=== PATIENT | female | born 1955 | race Caucasian/White ===

== ENCOUNTER 2019-07-25 12:28 | Outpatient (CLI) | payer BC, SELFPAY ==
[2019-07-25 13:22] LABS: Albumin Level 4.4 g/dL (3.5-5.2); Anion Gap 17.3 (5-19); Blood Urea Nitrogen 21 mg/dL (8-23); Calcium 10.6 mg/dL (8.5-10.5); Carbon Dioxide 24 mmol/L (22-29); Chloride 102 mmol/L (98-107); Glucose 126 mg/dL (65-115); Phosphorus 3.8 mg/dL (2.5-4.5); Potassium 4.3 mmol/L (3.5-5.1); Sodium 139 mmol/L (136-145)
[2019-07-25 13:56] LABS: Basophils % 0.2 %; Eosinophils # 0.1 10^3/uL (0.0-0.8); Hematocrit 45.1 % (37.0-47.0); Hemoglobin 14.1 g/dL (11.5-15.3); Lymphocytes # 1.3 10^3/uL (0.8-4.8); Mean Corpuscular HGB Conc 31.3 g/dL (30.0-36.0); Mean Corpuscular Hemoglobin 29.1 pg (28.0-34.0); Mean Corpuscular Volume 93.2 fL (81-99); Mean Platelet Volume 9.1 fL (7.4-10.4); Monocytes # 0.4 10^3/uL (0.2-0.9); Monocytes % 7.2 %; Neutrophils # 4.2 10^3/uL (1.8-7.7); Neutrophils % 68.9 %; Nucleated Red Blood Cells % 0 %; Platelet Count 324 10^3/cmm (130-400); Red Blood Count 4.84 10^6/uL (4.1-5.3); Red Cell Distribution Width 14.3 % (12.1-15.1); White Blood Count 6.1 10^3/uL (4.0-10.0)
[2019-07-25 14:18] LABS: Creatinine Urine, Random 319 mg/dL (28-217); Microalbum Creatinine Ratio Ur 6 mg/dL (0-20); Microalbumin Random Urine 2 ug/dL (0-20)
[2019-07-25 14:41] LABS: Calcium 10.7 mg/dL (8.5-10.5)
== END 2019-07-25 12:29 | disposition home or self-care (01) ==
LOC: LAB 12:37
PROVIDERS: Family Provider Family Medicine; PCP Family Medicine; Visit Provider Internal Medicine Nephrology
DX: N18.3 Chronic kidney disease, stage 3 (moderate) (principal)
CPT/HCPCS: 36415; 80069; 82044; 82310; 83970; 85025

== ENCOUNTER → 2019-11-14 08:44 | Outpatient (BNVA) | payer BC, SELFPAY | PROVIDERS: Family Provider Family Medicine; PCP Family Medicine; Visit Provider Specialist | DX: G40.309 Generalized idiopathic epilepsy and epileptic syndromes, not intractable, without status epilepticus (principal) | CPT/HCPCS: 99213 ==

== ENCOUNTER 2019-12-15 14:08 | Outpatient (CLI) | payer BC, MEDICAID, SELFPAY ==
--- NOTE | 2019-12-15 14:15 | USCV_ITS ---
Lorene Benedict Age: 64 Gender: F : 1955 Exam Date: 12/15/2019 14:39 Ordering Phys: Tere Burciaga MD ([email or web address]) Technologist: Kaykay Ferreira Exam Location: [facility] [place] Indication: RECHECK OF CCA STENOSIS Risk Factors: Previous Vascular Surgery: Right Brachial BP: / Left Brachial BP: / Right Left Velocity (cm/s) Spectral Plaque Velocity (cm/s) Spectral Plaque Syst/Diast Broadening Syst/Diast Broadening 78.30/ 28.70 Prox CCA 80.30 / 19.30 45.40/ 16.40 Mid CCA 47.50 / 16.60 60.50/ 24.30 Hetro Distal CCA 43.70 / 12.80 81.60/ 24.70 Hetro Prox ICA 45.00 / 17.20 80.60/ 19.70 Mid ICA 67.50 / 29.00 88.80/ 32.10 Distal ICA 77.00 / 32.00 84.90 Hetro ECA 46.80 1.96 ICA/CCA 1.62 Antegrade Vertebral Antegrade 37.60/ 12.80 cm/s 32.60/ 8.90 cm/s Tri Subclavian Tri 143.4 94.00 0 FINDINGS Moderate scattered dense plaques at the right bifurcation and proximal internal carotid artery Minimal plaques at the left bifurcation proximal ICA. Mild thickening in the common carotid arteries bilaterally Antegrade flow in the vertebral arteries bilaterally CONCLUSIONS Moderate scattered dense plaques at the right bifurcation and proximal internal carotid artery with velocity elevation consistent with 16-49% stenosis. Minimal plaques at the left bifurcation and proximal internal carotid artery. Compared to the study from 12/28/2017, there may not be a significant change Dr Tere Burciaga MD [facility] (Electronically Signed) Final Date: 15 December 2019 21:08 S
== END 2019-12-15 14:09 | disposition home or self-care (01) ==
LOC: RAD 14:11
PROVIDERS: PCP Family Medicine; Visit Provider Internal Medicine Cardiovascular Disease
DX: I65.23 Occlusion and stenosis of bilateral carotid arteries (principal)
CPT/HCPCS: 93880

== ENCOUNTER 2020-01-06 10:59 | Outpatient (CLI) | payer BC, SELFPAY ==
--- NOTE | 2020-01-06 11:07 | MM_ITS ---
WS: [id number] BILATERAL DIGITAL SCREENING MAMMOGRAPHY WITH CAD CLINICAL INFORMATION: SCREENING HISTORY: Screening mammogram. No current complaints. COMPARISON: TECHNIQUE: Bilateral CC and MLO views. FINDINGS: Scattered fibroglandular densities bilaterally. No suspicious focal mass, asymmetry, calcifications, or architectural distortion. No evidence of malignancy. Punctate calcifications. MM/[place] [id number] IMPRESSION: BI-RADS: 2-Benign FOLLOW UP: 1 Year Follow-up Recommend return to annual screening mammography.
== END 2020-01-06 11:00 | disposition home or self-care (01) ==
LOC: RADSHAW 11:04
PROVIDERS: PCP Family Medicine; Visit Provider Family Medicine
DX: Z12.31 Encounter for screening mammogram for malignant neoplasm of breast (principal)
CPT/HCPCS: 77067

== ENCOUNTER 2020-01-23 15:20 | Outpatient (CLI) | payer BC, MEDICAID, SELFPAY ==
[2020-01-23 15:53] LABS: Basophils % 0.3 %; Eosinophils # 0.1 10^3/uL (0.0-0.8); Eosinophils % 1.8 %; Hematocrit 44.9 % (37.0-47.0); Hemoglobin 13.8 g/dL (11.5-15.3); Lymphocytes # 1.7 10^3/uL (0.8-4.8); Lymphocytes % 25.6 %; Mean Corpuscular HGB Conc 30.7 g/dL (30.0-36.0); Mean Corpuscular Hemoglobin 29.8 pg (28.0-34.0); Monocytes # 0.6 10^3/uL (0.2-0.9); Monocytes % 8.4 %; Neutrophils # 4.21 10^3/uL (1.8-7.7); Neutrophils % 63.4 %; Nucleated Red Blood Cells % 0 %; Platelet Count 306 10^3/cmm (130-400); Red Blood Count 4.63 10^6/uL (4.1-5.3); Red Cell Distribution Width 14.1 % (12.1-15.1); White Blood Count 6.6 10^3/uL (4.0-10.0)
[2020-01-23 16:56] LABS: 25 Hydroxy Vitamin D 25 ng/mL (30-100); Albumin Level 4.6 g/dL (3.5-5.2); Blood Urea Nitrogen 21 mg/dL (8-23); Calcium 9.7 mg/dL (8.5-10.5); Carbon Dioxide 23 mmol/L (22-29); Chloride 106 mmol/L (98-107); Glucose 94 mg/dL (65-115); Phosphorus 4.7 mg/dL (2.5-4.5); Sodium 140 mmol/L (136-145)
[2020-01-23 17:06] LABS: Urine Creatinine 181 mg/dL (28-217); Urine Protein Random 8 mg/dL
[2020-01-23 17:15] LABS: UPRO/UCREAT Ratio 0.04 mg/mg CR
[2020-01-23 17:54] LABS: Calcium 10.1 mg/dL (8.5-10.5); Parathyroid Hormone 26.7 pg/mL (15-65)
== END 2020-01-23 15:21 | disposition home or self-care (01) ==
LOC: LAB 15:25
PROVIDERS: PCP Family Medicine; Visit Provider Nurse Practitioner
DX: N18.3 Chronic kidney disease, stage 3 (moderate) (principal)
CPT/HCPCS: 36415; 80069; 82306; 82310; 82570; 83970; 84156; 85025

== ENCOUNTER 2020-06-25 15:20 | Outpatient (CLI) | payer MEDICARE, MEDICAID, SELFPAY ==
--- NOTE | 2020-06-25 | XRR_ITS ---
PROCEDURE INFORMATION: Exam: XR Abdomen, 1 View Exam date and time: 06/25/2020 3:41 PM Age: 65 years old Clinical indication: Constipation; Abdominal pain; Localized; Left; Prior surgery; Surgery type: C sect, right kidney; Additional info: Slow transit constipation TECHNIQUE: Imaging protocol: XR of the abdomen. Views: Frontal supine view of the abdomen. 1 View. Total images: 2 COMPARISON: CT Abdomen/Pelvis Renal [id number] 12/18/2014 11:47 AM FINDINGS: Gastrointestinal tract: Nonobstructive bowel pattern. No visible evidence of significant adynamic or reactive ileus. Heavy fecal residue consistent with constipation. Organs: Status post cholecystectomy. Bones/joints: Mild scoliotic curvature of the spine. Mild degenerative disease of the spine. XR/XR abdomen 1V* [id number] IMPRESSION: Heavy fecal residue consistent with constipation.
== END 2020-06-25 15:21 | disposition home or self-care (01) ==
LOC: RAD 15:26
PROVIDERS: PCP Family Medicine; Visit Provider Registered Nurse
DX: K59.01 Slow transit constipation (principal); R10.30 Lower abdominal pain, unspecified
CPT/HCPCS: 74018

== ENCOUNTER → 2021-01-10 11:06 | Outpatient (BNVA) | payer MEDICARE, MEDICAID, SELFPAY | PROVIDERS: PCP Family Medicine; Visit Provider Specialist | DX: G40.309 Generalized idiopathic epilepsy and epileptic syndromes, not intractable, without status epilepticus (principal) | CPT/HCPCS: 99213 ==

== ENCOUNTER 2021-02-25 14:35 | Outpatient (CLI) | payer MEDICARE, MEDICAID, SELFPAY ==
--- NOTE | 2021-02-25 | CT_ITS ---
WS: [id number] CT PARANASAL SINUSES HISTORY: Maxillary SINUS PAIN TECHNIQUE: Contiguous 2.5 mm axial images obtained through the sinuses. Images are reconstructed in s agittal and coronal planes. All CT scans at [facility] use at least one of these dose optimiz ation techniques: automated exposure control; mA and/or kV adjustment per patient size (includes targ eted exams where dose is matched to clinical indication); or iterative reconstruction. DLP: 346.37 mGycm COMPARISON: None available. Frontal sinuses: Poorly pneumatized. RIGHT frontal sinus is not pneumatized. Sphenoid sinus: Small amount mucoperiosteal thickening in the LEFT sphenoid sinus. Ethmoid sinuses: Negative. Maxillary sinus: Small mucous retention cyst in the anterior floor RIGHT maxillary sinus. No air-flui d levels. Ostiomeatal unit: Widely patent. No obstruction. Moderate deviation of the nasal septum to the LEFT. There is very slight contact of the deviation on the LEFT middle turbinate. CT/CT sinus wo con* [id number] IMPRESSION: 1. Non pneumatized RIGHT frontal sinus, normal variant. 2. No air-fluid levels. 3. Moderate deviation of the nasal septum to the LEFT with contact on the LEFT middle turbinate.
== END 2021-02-25 14:36 | disposition home or self-care (01) ==
PROVIDERS: PCP Family Medicine; Visit Provider Registered Nurse
DX: J32.0 Chronic maxillary sinusitis (principal); J34.2 Deviated nasal septum
CPT/HCPCS: 70486

== ENCOUNTER 2021-07-25 06:00 | Outpatient (RCR) | payer MEDICARE, MEDICAID, SELFPAY | END 2021-08-05 23:59 | disposition home or self-care (01) | LOC: SPT 06:00 | PROVIDERS: PCP Family Medicine; Referring Provider Nurse Practitioner Family; Visit Provider Nurse Practitioner Family | DX: M25.561 Pain in right knee (principal); Z91.81 History of falling; S76.919D Strain of unspecified muscles, fascia and tendons at thigh level, unspecified thigh, subsequent encounter; X58.XXXD Exposure to other specified factors, subsequent encounter | CPT/HCPCS: 97161 ==

== ENCOUNTER 2021-08-06 06:00 | Outpatient (RCR) | payer MEDICARE, MEDICAID, SELFPAY | END 2021-08-13 23:59 | disposition home or self-care (01) | LOC: SPT 06:00 | PROVIDERS: PCP Family Medicine; Referring Provider Nurse Practitioner Family; Visit Provider Nurse Practitioner Family | DX: Z91.81 History of falling (principal); M25.561 Pain in right knee; S76.919D Strain of unspecified muscles, fascia and tendons at thigh level, unspecified thigh, subsequent encounter; X58.XXXD Exposure to other specified factors, subsequent encounter | CPT/HCPCS: 97110 ==

== ENCOUNTER → 2021-10-08 10:02 | Outpatient (BNVA) | payer MEDICARE, MEDICAID, SELFPAY | PROVIDERS: PCP Family Medicine; Visit Provider Internal Medicine Cardiovascular Disease | DX: I65.23 Occlusion and stenosis of bilateral carotid arteries (principal); G47.33 Obstructive sleep apnea (adult) (pediatric); I12.9 Hypertensive chronic kidney disease with stage 1 through stage 4 chronic kidney disease, or unspecified chronic kidney disease; N18.30 Chronic kidney disease, stage 3 unspecified; E78.2 Mixed hyperlipidemia | CPT/HCPCS: 99214 ==

== ENCOUNTER → 2021-10-09 13:13 | Outpatient (BNVA) | payer MEDICARE, MEDICAID, SELFPAY | PROVIDERS: PCP Family Medicine; Visit Provider Otolaryngology | DX: R26.89 Other abnormalities of gait and mobility (principal); I65.29 Occlusion and stenosis of unspecified carotid artery | CPT/HCPCS: 99213; 99214 ==

== ENCOUNTER 2021-11-16 19:01 | Emergency (ER) | payer OTHER, MEDICARE, MEDICAID, SELFPAY ==
[2021-11-16 19:03] VITALS: BP 148/82; PULSE 93; RESP 18; TEMP 36.8; O2SAT 98; BMI 36.1
[2021-11-16 19:16] VITALS: BP 146/75; PULSE 90; RESP 18; O2SAT 96
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
[2021-11-16 19:53] VITALS: BP 131/91; PULSE 80; RESP 18; O2SAT 96
== END 2021-11-16 19:55 | disposition home or self-care (01) ==
PROVIDERS: Emergency Provider Emergency Medicine; PCP Family Medicine
DX: S49.81XA Other specified injuries of right shoulder and upper arm, initial encounter (principal); V89.2XXA Person injured in unspecified motor-vehicle accident, traffic, initial encounter; Y92.410 Unspecified street and highway as the place of occurrence of the external cause
CPT/HCPCS: 73030; 99283

== ENCOUNTER 2021-11-18 11:13 | Outpatient (CLI) | payer MEDICARE, MEDICAID, SELFPAY ==
--- NOTE | 2021-11-18 11:15 | USCV_ITS ---
Lorene Benedict Age: 66 Gender: F : 1955 Exam Date: 11/18/2021 11:52 Ordering Phys: Tere Burciaga MD ([email or web address]) Technologist: [place] Exam Location: [facility] [place] Indication: Carotid stenosis Risk Factors: Previous Vascular Surgery: Right Brachial BP: / Left Brachial BP: / Right Left Velocity (cm/s) Spectral Plaque Velocity (cm/s) Spectral Plaque Syst/Diast Broadening Syst/Diast Broadening 71.90/ 12.10 Prox CCA 59.90 / 13.60 68.40/ 13.20 Mid CCA 55.90 / 17.90 49.00/ 13.50 Distal CCA 45.80 / 11.70 81.60/ 22.20 Prox ICA 58.10 / 21.90 70.90/ 21.40 Mid ICA 65.50 / 23.00 81.60/ 27.20 Distal ICA 66.90 / 23.00 75.40 ECA 45.80 1.19 ICA/CCA 1.20 Antegrade Vertebral Antegrade 33.80/ 9.80 cm/s 45.40/ 10.50 cm/s Tri Subclavian Bi 118.0 94.00 0 FINDINGS Moderate heterogeneous plaques in the right bifurcation. Minimal plaques in the left bifurcation. Intimal thickening in the common carotid arteries bilaterally. Antegrade flow in the vertebral arteries bilaterally. Normal Doppler flow velocities in the external carotid and subclavian arteries bilaterally. CONCLUSIONS Moderate heterogeneous plaques at the right bifurcation relative Doppler features suggesting less than 50% stenosis. Minimal plaques at the left bifurcation suggesting less than 50% stenosis No significant stenosis in the vertebral, subclavian or external carotid arteries, based on the above findings Dr Tere Burciaga MD [facility] (Electronically Signed) Final Date: 20 November 2021 07:57 S
== END 2021-11-18 11:14 | disposition home or self-care (01) ==
LOC: RAD 11:22
PROVIDERS: PCP Family Medicine; Visit Provider Internal Medicine Cardiovascular Disease
DX: I65.23 Occlusion and stenosis of bilateral carotid arteries (principal); I77.9 Disorder of arteries and arterioles, unspecified
CPT/HCPCS: 93880

== ENCOUNTER 2022-01-30 12:48 | Outpatient (CLI) | payer MEDICARE, MEDICAID, SELFPAY ==
[2022-01-30 13:40] LABS: Basophils % 0.2 %; Eosinophils # 0.1 10^3/uL (0.0-0.8); Eosinophils % 2.1 %; Hematocrit 41.1 % (37.0-47.0); Hemoglobin 12.5 g/dL (11.5-15.3); Lymphocytes # 1.5 10^3/uL (0.8-4.8); Lymphocytes % 28.8 %; Mean Corpuscular HGB Conc 30.4 g/dL (30.0-36.0); Mean Corpuscular Hemoglobin 29.3 pg (28.0-34.0); Mean Corpuscular Volume 96.3 fl (81-99); Monocytes # 0.5 10^3/uL (0.2-0.9); Monocytes % 9.6 %; Neutrophils # 3.07 10^3/uL (1.8-7.7); Neutrophils % 59.1 %; Nucleated Red Blood Cells % 0 %; Platelet Count 247 10^3/cmm (130-400); Red Blood Count 4.27 10^6/uL (4.1-5.3); Red Cell Distribution Width 14.4 % (12.1-15.1); White Blood Count 5.2 10^3/uL (4.0-10.0)
[2022-01-30 13:51] LABS: Urine Creatinine 99 mg/dL (28-217)
[2022-01-30 13:57] LABS: Calcium 9.2 mg/dL (8.5-10.5)
[2022-01-30 13:59] LABS: Albumin Level 4.2 g/dL (3.5-5.2); Chloride 106 mmol/L (98-107); Glucose 96 mg/dL (65-115); Potassium 4.2 mmol/L (3.5-5.1); Sodium 140 mmol/L (136-145)
[2022-01-30 14:03] LABS: Parathyroid Hormone 44.5 pg/mL (15-65)
[2022-01-30 14:32] LABS: Anion Gap 14.2 (5-19); Blood Urea Nitrogen 17 mg/dL (8-23); Calcium 9.2 mg/dL (8.5-10.5); Carbon Dioxide 24 mmol/L (22-29); Glomerular Filtration Rate 55.5 mL/min (90-130); Phosphorus 3.5 mg/dL (2.5-4.5)
[2022-02-04 10:36] LABS: Vit D 1,25 (Oh)2, Total 33 pg/mL (18-72); Vit D2 1,25 (Oh)2 <8 pg/mL; Vit D3 1,25 (Oh)2 33 pg/mL
== END 2022-01-30 12:49 | disposition home or self-care (01) ==
LOC: LAB 12:56
PROVIDERS: PCP Family Medicine; Visit Provider Internal Medicine Nephrology
DX: N18.32 Chronic kidney disease, stage 3b (principal)
CPT/HCPCS: 80069; 82310; 82570; 82652; 83970; 85025

== ENCOUNTER 2022-03-05 10:34 | Outpatient (CLI) | payer OTHER, MEDICARE, MEDICAID, SELFPAY ==
--- NOTE | 2022-03-05 10:50 | XR_ITS ---
WS: [id number] Exam: XR thoracic spine 3V* [id number] Date/Time of Exam: 03/05/2022 10:52 AM Reason For Exam: MIDLINE THORACIC BACK PAIN No acute fracture or dislocation. There is spondylosis. Mild dextroscoliosis of the lower T-spine. Pa raspinal soft tissues are unremarkable. XR/XR thoracic spine 3V* [id number] IMPRESSION: 1. No fracture or malalignment. 2. Degenerative changes and slight scoliosis
--- NOTE | 2022-03-05 10:50 | XR_ITS ---
WS: [id number] Exam: XR ribs BI 3V* [id number] Date/Time of Exam: 03/05/2022 10:52 AM Reason For Exam: MIDLINE THORACIC BACK PAIN No sign of acute rib fracture. The lungs are fully expanded and bilaterally clear. No pleural effusio ns. No pulmonary or pleural reactive changes. Anchoring screws in the left humeral head. XR/XR ribs BI 3V* [id number] IMPRESSION: 1. No acute rib fracture or other significant finding.
== END 2022-03-05 10:35 | disposition home or self-care (01) ==
LOC: RAD 10:36
PROVIDERS: PCP Family Medicine; Visit Provider Nurse Practitioner Family
DX: M54.6 Pain in thoracic spine (principal); G89.29 Other chronic pain; M41.84 Other forms of scoliosis, thoracic region
CPT/HCPCS: 71110; 72072

== ENCOUNTER 2022-03-31 10:50 | Outpatient (CLI) | payer MEDICARE, MEDICAID, SELFPAY ==
--- NOTE | 2022-03-31 11:01 | MM_ITS ---
WS: [id number] VIEWS: MLO and CC views both breasts. 3D digital tomosynthesis is also included in this exam. Comparison made with prior exam of 10/05/2013, 11/02/2014, 11/26/2015, 12/02/2016, 10/21/2018, 01/06/2020. Findings: There was no sign of mass, architectural distortion or suspicious calcification in either breast. Fa tty MM/[place] [id number] Impression: BI-RADS: 2-Benign FOLLOW-UP: 1 Year Follow-up This mammogram was also analyzed by the Computer Aided Detection System R2 Imag e Senior Compensation Analyst.
== END 2022-03-31 10:51 | disposition home or self-care (01) ==
LOC: RAD 10:51
PROVIDERS: PCP Family Medicine; Visit Provider Nurse Practitioner Family
DX: Z12.31 Encounter for screening mammogram for malignant neoplasm of breast (principal)
CPT/HCPCS: 77063; 77067

== ENCOUNTER → 2022-05-26 14:37 | Outpatient (BNVA) | payer MEDICARE, MEDICAID, SELFPAY | PROVIDERS: PCP Family Medicine; Visit Provider Specialist | DX: G40.309 Generalized idiopathic epilepsy and epileptic syndromes, not intractable, without status epilepticus (principal); G47.33 Obstructive sleep apnea (adult) (pediatric) | CPT/HCPCS: 99213 ==

== ENCOUNTER → 2022-08-19 10:57 | Outpatient (BNVA) | payer MEDICARE, MEDICAID, SELFPAY | PROVIDERS: PCP Family Medicine; Visit Provider Nurse Practitioner Family | DX: I12.9 Hypertensive chronic kidney disease with stage 1 through stage 4 chronic kidney disease, or unspecified chronic kidney disease (principal); N18.9 Chronic kidney disease, unspecified; I65.23 Occlusion and stenosis of bilateral carotid arteries | CPT/HCPCS: 99214 ==

== ENCOUNTER → 2023-02-18 14:56 | Outpatient (BNVA) | payer MEDICARE, MEDICAID, SELFPAY | PROVIDERS: PCP Family Medicine; Visit Provider Internal Medicine Cardiovascular Disease | DX: R07.9 Chest pain, unspecified (principal); I65.23 Occlusion and stenosis of bilateral carotid arteries; G47.33 Obstructive sleep apnea (adult) (pediatric); I10 Essential (primary) hypertension; E78.2 Mixed hyperlipidemia; I12.9 Hypertensive chronic kidney disease with stage 1 through stage 4 chronic kidney disease, or unspecified chronic kidney disease; N18.30 Chronic kidney disease, stage 3 unspecified; R94.31 Abnormal electrocardiogram [ECG] [EKG] | CPT/HCPCS: 93005; 99214 ==

== ENCOUNTER 2023-04-02 11:08 | Outpatient (CLI) | payer MEDICARE, MEDICAID, SELFPAY ==
--- NOTE | 2023-04-02 11:00 | MM_ITS ---
WS: [id number] BILATERAL SCREENING DIGITAL TOMOSYNTHESIS MAMMOGRAM WITH CAD HISTORY: SCREENING COMPARISON: 03/31/2022 and 01/06/2020 Bilateral CC and MLO views with tomosynthesis and synthetic mammography submitted. Computer aided det ection analyzed. Breast composition: There are scattered areas of fibroglandular density. No suspicious masses, microc alcifications or architectural distortion. Benign calcifications in each breast. IMPRESSION: MM/[place] [id number] BI-RADS: 2-Benign FOLLOW UP: 1 Year Follow-up
== END 2023-04-02 11:09 | disposition home or self-care (01) ==
LOC: MOBLMAM 11:15
PROVIDERS: PCP Family Medicine; Visit Provider Family Medicine
DX: Z12.31 Encounter for screening mammogram for malignant neoplasm of breast (principal)
CPT/HCPCS: 77063; 77067

== ENCOUNTER → 2023-09-02 15:20 | Outpatient (BNVA) | payer MEDICARE, MEDICAID, SELFPAY | PROVIDERS: PCP Family Medicine; Visit Provider Internal Medicine Cardiovascular Disease | DX: R07.89 Other chest pain (principal); I65.23 Occlusion and stenosis of bilateral carotid arteries; E78.2 Mixed hyperlipidemia; G47.33 Obstructive sleep apnea (adult) (pediatric); I12.9 Hypertensive chronic kidney disease with stage 1 through stage 4 chronic kidney disease, or unspecified chronic kidney disease; N18.30 Chronic kidney disease, stage 3 unspecified | CPT/HCPCS: 99214 ==

== ENCOUNTER 2023-09-10 12:36 | Outpatient (CLI) | payer MEDICARE, MEDICAID, SELFPAY ==
--- NOTE | 2023-09-10 13:00 | USCV_ITS ---
Lorene Benedict Age: 68 Gender: F : 1955 Exam Date: 09/10/2023 12:48 Ordering Phys: Tere Burciaga MD ([email or web address]) Technologist: Exam Location: [facility] [place] Indication: cca stenosis Risk Factors: Previous Vascular Surgery: Right Brachial BP: / Left Brachial BP: / Right Left Velocity (cm/s) Spectral Plaque Velocity (cm/s) Spectral Plaque Syst/Diast Broadening Syst/Diast Broadening 84.10/ 23.20 Prox CCA 49.60 / 16.80 63.40/ 18.00 Mid CCA 38.50 / 11.10 97.00/ 28.40 Hetro Distal CCA 48.30 / 12.20 125.80/32.70 Prox ICA 65.80 / 25.40 73.70/ 15.70 Mid ICA 93.00 / 33.00 111.40/30.00 Distal ICA 107.50/ 36.30 98.30 ECA 58.10 1.30 ICA/CCA 2.20 Antegrade Vertebral Antegrade 34.00/ 8.00 cm/s 31.20/ 8.50 cm/s Tri Subclavian Tri 109.0 110.0 0 0 FINDINGS Moderate heterogenous plaques of the right bifurcation and proximal internal carotid artery Minimal plaques at the left bifurcation and internal carotid artery Antegrade flow in the vertebral arteries bilaterally Normal Doppler flow velocities in the external carotid and subclavian arteries bilaterally CONCLUSIONS Moderate heterogenous plaques of the right bifurcation and proximal internal carotid artery with velocity elevation suggesting 50 to 69% stenosis. Minimal plaques in the left bifurcation and proximal ICA suggesting less than 50% stenosis. No significant stenosis in the vertebral, subclavian or external carotid arteries, based on the above findings Dr Tere Burciaga MD [facility] (Electronically Signed) Final Date: 11 September 2023 10:02 S
== END 2023-09-10 12:37 | disposition home or self-care (01) ==
LOC: RAD 12:36
PROVIDERS: PCP Family Medicine; Visit Provider Internal Medicine Cardiovascular Disease
DX: I65.23 Occlusion and stenosis of bilateral carotid arteries (principal)
CPT/HCPCS: 93880

== ENCOUNTER 2024-04-05 10:00 | Outpatient (CLI) | payer MEDICARE, MEDICAID, SELFPAY ==
--- NOTE | 2024-04-05 10:07 | MM_ITS ---
WS: [id number] BILATERAL 3D TOMOSYNTHESIS DIGITAL SCREENING MAMMOGRAM WITH CAD CLINICAL INFORMATION: SCREENING HISTORY: Screening mammogram. No current complaints. COMPARISON: 2022 TECHNIQUE: Bilateral CC and MLO views. FINDINGS: Fatty-replaced breasts bilaterally. No suspicious focal mass, asymmetry, calcifications, or architecture instructor ural distortion. No evidence of malignancy. Incidental secretory calcifications. MM/MM scr tomosynthesis [id number] IMPRESSION: DENSITY: The breasts are almost entirely fatty. BI-RADS: 2 - Benign. FOLLOW UP: 1 Year Follow-up Recommend return to annual screening mammography.
== END 2024-04-05 10:01 | disposition home or self-care (01) ==
LOC: RAD 10:01
PROVIDERS: PCP Family Medicine
DX: Z12.31 Encounter for screening mammogram for malignant neoplasm of breast (principal); R92.313 Mammographic fatty tissue density, bilateral breasts; R92.1 Mammographic calcification found on diagnostic imaging of breast
CPT/HCPCS: 77063; 77067

== ENCOUNTER 2024-04-14 21:10 | Emergency (ER) | payer MEDICARE, MEDICAID, SELFPAY ==
--- NOTE | 2024-04-14 21:15 | ECG_ITS ---
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 Measurements Intervals Elizabeth Rate: 90 P: 140 ID: [id number] QRS: 43 QRSD: 84 T: 111 QT: 342 QTc: 420 Interpretive Statements SINUS RHYTHM WITH OCCASIONAL SUPRAVENTRICULAR PREMATURE COMPLEXES LOW QRS VOLTAGE IN PRECORDIAL LEADS [QRS DEFLECTION < 1.0 mV IN CHEST LEADS] ANTEROSEPTAL MYOCARDIAL INFARCTION , OF INDETERMINATE AGE [40+ ms Q WAVE IN V1-V4] Compared to ECG 02/18/2023 15:05:53 No significant changes Electronically Signed On 04-14-2024 21:24:35 SYSTEMS DESIGN ENGINEER by Tere Burciaga M.D. [email or web address]
[2024-04-14 21:16] VITALS: BP 182/73; PULSE 94; RESP 21; TEMP 36.4; O2SAT 98; BMI 37.0
--- NOTE | 2024-04-14 21:35 | XRR_ITS ---
PROCEDURE INFORMATION: Exam: XR Chest Exam date and time: 04/14/2024 10:00 PM Age: 68 years old Clinical indication: Pain; Chest pressure; Additional info: Chest pain TECHNIQUE: Imaging protocol: Radiologic exam of the chest. Views: 1 view. COMPARISON: CR XR chest 1V [id number] 06/09/2017 11:14 AM FINDINGS: Lungs: Unremarkable. No consolidation. Pleural spaces: Unremarkable. No pleural effusion. No pneumothorax. Heart/Mediastinum: Mild cardiomegaly. Bones/joints: Moderate degenerative disease of bilateral acromioclavicular joints. XR/XR chest 1V portable [id number] IMPRESSION: No acute cardiopulmonary process.
[2024-04-14 21:53] LABS: Basophils % 0.1 %; Eosinophils # 0.1 10^3/uL (0.0-0.8); Eosinophils % 1.6 %; Hematocrit 42.8 % (36-47); Lymphocytes # 1.5 10^3/uL (0.8-4.8); Lymphocytes % 20.6 %; Mean Corpuscular HGB Conc 31.5 g/dL (30-55); Mean Corpuscular Hemoglobin 30.5 pg (27-33); Mean Corpuscular Volume 96.8 fl (85-98); Mean Platelet Volume 8.7 fL (7.4-10.4); Monocytes # 0.7 10^3/uL (0.2-0.9); Monocytes % 9.6 %; Neutrophils # 4.98 10^3/uL (1.8-7.7); Neutrophils % 67.7 %; Nucleated Red Blood Cells % 0 %; Platelet Count 243 10^3/cmm (157-399); Red Blood Count 4.42 10^6/uL (3.85-5.65); Red Cell Distribution Width 13.8 % (12.1-15.1); White Blood Count 7.37 10^3/uL (3.29-11.43)
--- NOTE | 2024-04-14 21:56 | ED_ITS ---
HPI - Chest Pain 2 General: Chief Complaint: Chest Pain Stated Complaint: SOB Time Seen by Provider: 04/14/24 21:35 History of Present Illness: Patient was into the ER with complaints of chest pain after eating x 1 today. He was left-sided did not radiate did not produce any nausea or vomiting shortness of breath or diaphoresis. Patient has alpha gal and thought she may have ate something she should not had. Patient did vomit x 1 and that she felt better afterwards. Related Data Home Medications Medication Instructions Recorded Confirmed cholecalciferol (vitamin D3) 125 125 mcg PO DAILY 11/14/19 09/03/23 mcg (5,000 unit) tablet (Vitamin D3) fluticasone fur. 100 mcg-umeclid 1 inh inhalation DAILY 11/14/19 09/03/23 62.5 mcg-vilant 25 mcg inhalat.powder (Trelegy Ellipta) gabapentin 300 mg capsule 300 mg PO DAILY 11/14/19 09/03/23 irbesartan 150 mg tablet 150 mg PO DAILY 11/14/19 09/03/23 levothyroxine 75 mcg tablet 37.5 mcg PO DAILY 11/14/19 09/03/23 (Synthroid) omeprazole 40 mg capsule,delayed 40 mg PO DAILY 11/14/19 09/03/23 release simvastatin 20 mg tablet 20 mg PO DAILY 11/14/19 09/03/23 valacyclovir 500 mg tablet 500 mg PO DAILY PRN 11/14/19 09/03/23 vitamin B complex 1 cap PO DAILY 11/14/19 09/03/23 brinzolamide 1 % eye 1 drop ophthalmic (eye) TID 11/24/19 09/03/23 drops,suspension (Azopt) latanoprost 0.005 % eye drops 1 drop ophthalmic (eye) DAILY 11/24/19 09/03/23 potassium 99 mg tablet mg PO BID 11/24/19 09/03/23 magnesium 250 mg tablet 250 mg PO DAILY PRN 01/10/21 09/03/23 flunisolide 25 mcg (0.025 %) nasal 1 spray intranasal BID 10/08/21 09/03/23 spray benzonatate 100 mg capsule 100 mg PO BID PRN 02/18/23 09/03/23 Previous Rx's Medication Instructions Recorded carvedilol 3.125 mg tablet 3.125 mg PO BID 30 days #60 tabs 11/19/20 fluticasone propionate 50 2 spray intranasal DAILY 6 months 04/01/21 mcg/actuation nasal #16 grams spray,suspension zonisamide 100 mg capsule 400 mg (4 x 100 mg) PO DAILY 30 03/09/23 days #120 caps Allergies Allergy/AdvReac Type Severity Reaction Status Date / Time Alpha-Gal Allergy Intermediate Unknown Verified 04/14/24 21:20 ([id number],3-Gala Review of Systems 2 General: Reports: 10 or more systems reviewed and unremarkable except in HPI and below PFSH ED 2 PFSH: Medical History Hypertension Lichen sclerosus Chronic kidney disease Obstructive sleep apnea Hypertension COPD (chronic obstructive pulmonary disease) Hyperlipidemia Bilateral carotid artery stenosis GERD (gastroesophageal reflux disease) Sleep apnea Kidney stones Hypersomnia Seizures Glaucoma Morbid obesity Hypothyroid Surgical History History of History of dental surgery Hx of cholecystectomy Status post glaucoma surgery History of rotator cuff surgery Family History Father CAD (coronary artery disease) Dementia Diabetes Hyperlipidemia Hypertension Lung disease Mother Cancer Brother Chronic kidney disease (CKD) Sister Chronic kidney disease (CKD) Denies family history of Clotting disorder Suicide Anesthesia complication Bleeding disorder Stroke Social History Smoking and tobacco/nicotine status: never used tobacco/nicotine Alcohol intake: never Substance/Drug Use: never Physical Exam 2 Const: COMMON NORMALS: no acute distress, average body habitus, patient oriented x3, no limitations, healthy appearing, alert and well nourished HENMT: COMMON NORMALS: normocephalic, atraumatic, hearing grossly normal bilaterally, external ears normal, Normal external nose present and moist oral mucous membranes HEAD & SCALP: normocephalic and atraumatic NOSE: Normal external nose present EXTERNAL EAR: Yes external ears normal Neck/C-Spine: COMMON NORMALS: no JVD Chest: COMMONS NORMALS: normal inspection of the chest and normal palpation of entire chest wall Resp: COMMON NORMALS: normal respiratory effort, No retractions, No use of accessory muscles and clear to auscultation bilaterally AUSCULTATION: clear to auscultation bilaterally Cardio: COMMON NORMALS: no JVD, regular rate, regular rhythm, S1 normal heart sound present, S2 normal heart sound present, No gallops present (Cardio), No clicks present (Cardio), No murmurs present (Cardio) and No rub (Cardio) R ATE: regular rate RHYTHM: regular rhythm HEART SOUNDS: S1 normal heart sound present and S2 normal heart sound present GI: COMMON NORMALS: Normal to inspection, nondistended, normoactive bowel sounds present, Soft to palpation, non-tender, No hepatosplenomegaly present and no masses PALPATION: Yes Soft to palpation and Yes No hepatosplenomegaly present Neuro: COMMON NORMALS: patient oriented x3 SENSORIUM/ORIENTATION: Yes alert Course 2 Vital Signs: Vital signs: Vital Signs Temperature 97.6 F 04/14/24 21:16 Pulse Rate 94 04/14/24 21:16 Respiratory Rate 21 H 04/14/24 21:16 Blood Pressure 182/73 04/14/24 21:16 Pulse Oximetry 98 04/14/24 21:16 Oxygen Delivery Me thod Room Air 04/14/24 21:16 MDM - Chest Pain Medical Decision Making Patient presented with chest pain was worked up in standard chest pain fashion with serial EKGs, serial enzymes, lab work, chest x-ray, all of which was benign. Patient will be discharged home Medical Records I reviewed the patient's medical records. Lab Data I reviewed the patient's lab results. 04/14/24 21:45 04/14/24 21:45 Radiology Impressions Chest X-Ray 04/14/24 21:35 IMPRESSION: No acute cardiopulmonary process. Laboratory Results WBC 7.37 10^3/uL (3.29-11.43) 04/14/24 21:45 RBC 4.42 10^6/uL (3.85-5.65) 04/14/24 21:45 Hgb 13.50 g/dL (11.27-16.99) 04/14/24 21:45 Hct 42.8 % (36-47) 04/14/24 21:45 MCV 96.8 fl (85-98) 04/14/24 21:45 MCH 30.5 pg (27-33) 04/14/24 21:45 MCHC 31.5 g/dL (30-55) 04/14/24 21:45 RDW 13.8 % (12.1-15.1) 04/14/24 21:45 Plt Count 243 10^3/cmm (157-399) 04/14/24 21:45 MPV 8.7 fL (7.4-10.4) 04/14/24 21:45 Neut % (Auto) 67.7 % 04/14/24 21:45 Lymph % (Auto) 20.6 % 04/14/24 21:45 [place] % (Auto) 9.6 % 04/14/24 21:45 Eos % (Auto) 1.6 % 04/14/24 21:45 Baso % (Auto) 0.1 % 04/14/24 21:45 Neut # (Auto) 4.98 10^3/uL (1.8-7.7) 04/14/24 21:45 Lymph # (Auto) 1.5 10^3/uL (0.8-4.8) 04/14/24 21:45 [place] # (Auto) 0.7 10^3/uL (0.2-0.9) 04/14/24 21:45 Eos # (Auto) 0.1 10^3/uL (0.0-0.8) 04/14/24 21:45 Baso # (Auto) 0.0 10^3/uL (0.0-0.1) 04/14/24 21:45 Nucleated RBC % (auto) 0 % 04/14/24 21:45 Nucleated RBCs # 0.0 /100WBC 04/14/24 21:45 Sodium 140 mmol/L (136-145) 04/14/24 21:45 Potassium 4.4 mmol/L (3.5-5.1) 04/14/24 21:45 Chloride 106 mmol/L (98-107) 04/14/24 21:45 Carbon Dioxide 24 mmol/L (22-29) 04/14/24 21:45 Anion Gap 14.4 (5-19) 04/14/24 21:45 BUN 21 mg/dL (8-23) 04/14/24 21:45 Creatinine 1.1 mg/dL (0.5-0.9) H 04/14/24 21:45 GFR Calculation 49.4 mL/min (90-130) L 04/14/24 21:45 Glucose 103 mg/dL (65-115) 04/14/24 21:45 Calculated Osmolality 293 mOsm/kg (285-295) 04/14/24 21:45 Calcium 8.6 mg/dL (8.5-10.5) 04/14/24 21:45 Total Bilirubin 0.3 mg/dL (0.15-1.2) 04/14/24 21:45 AST 19 U/L (0-32) 04/14/24 21:45 ALT 20 U/L (0-33) 04/14/24 21:45 Alkaline Phosphatase 107 U/L (35-105) H 04/14/24 21:45 Troponin T Baseline 10 ng/L (0-10) 04/14/24 21:45 Troponin T 120 Minute 8.89 ng/L (0-10) 04/14/24 23:39 Delta Troponin T -1.11 ABS# (0-10) L 04/14/24 23:39 Total Protein 6.5 g/dL (6.6-8.7) L 04/14/24 21:45 Albumin 4.2 g/dL (3.5-5.2) 04/14/24 21:45 Globulin 2.3 g/dL (1.3-4.6) 04/14/24 21:45 All radiology interpretation(s) finalized by discharge Discharge Plan Discharge Patient Disposition: Home Clinical Impression: Atypical chest pain Condition: Stable Prescriptions: No Action latanoprost 0.005 % drops 1 drop ophthalmic (eye) DAILY Azopt 1 % drops,suspension 1 drop ophthalmic (eye) TID valacyclovir 500 mg tablet 500 mg PO DAILY PRN cholecalciferol (vitamin D3) [Vitamin D3] 125 mcg (5,000 unit) tablet 125 mcg PO DAILY gabapentin 300 mg capsule 300 mg PO DAILY irbesartan 150 mg tablet 150 mg PO DAILY simvastatin 20 mg tablet 20 mg PO DAILY omeprazole 40 mg capsule,delayed release(DR/EC) 40 mg PO DAILY vitamin B complex Capsule 1 cap PO DAILY levothyroxine [Synthroid] 75 mcg tablet 37.5 mcg PO DAILY Trelegy Ellipta 100-62.5-25 mcg blister with device 1 inh INHALATION DAILY potassium 99 mg tablet PO BID magnesium 250 mg tablet 250 mg PO DAILY PRN fluticasone propionate 50 mcg/actuation spray,suspension 2 spray intranasal DAILY 180 Days Qty: 16 5RF Rx Instructions: administer into each nostril flunisolide 25 mcg (0.025 %) spray,non-aerosol 1 spray intranasal BID benzonatate 100 mg capsule 100 mg PO BID PRN carvedilol 3.125 mg tablet 3.125 mg PO BID 30 Days Qty: 60 5RF Rx Instructions: must administer with a meal/food zonisamide 100 mg capsule 400 mg PO DAILY 30 Days Qty: 120 0RF Rx Instructions: must have appointment for more refills Discharge Orders: Discharge ED (Routine); Ordered 04/15/24 Ordered By: Wilber Henry Referrals: Makenzie Nur DO [Primary Care Provider] - 1 week Patient Instructions: Chest Pain (DC) Activity Restrictions/Additional Instructions: Your evaluation in the ER did not show any acute cause of cardiac chest pain. It is felt your chest pain is noncardiac in origin. Please follow-up with your family practice physician within the next 7 days for further evaluation and treatment. Your chest pain returns please feel free to return to the ER. Thank you for choosing [facility] for your healthcare needs today. Please realize that you were seen in the emergency department and that we are providing you with an emergency medical screening exam and this may not be a complete and all exclusive of all testing and/or medical workup we may need to determine your element or severity of your illness. It is very important that you follow-up as instructed with your primary care provider or specialist for the additional evaluation and to discuss your medical treatment plan. You may return to the emergency department should you have concerns or if your condition changes or worsens in any way. Coding Level of Care Code ED Manufacturing Technician for Carrol Stoddard
[2024-04-14 22:11] LABS: Troponin(5th) Baseline 10 ng/L (0-10)
[2024-04-14 22:14] LABS: Alanine Aminotransferase 20 U/L (0-33); Albumin Level 4.2 g/dL (3.5-5.2); Alkaline Phosphatase 107 U/L (35-105); Anion Gap 14.4 (5-19); Aspartate Amino Transferase 19 U/L (0-32); Blood Urea Nitrogen 21 mg/dL (8-23); Calcium 8.6 mg/dL (8.5-10.5); Carbon Dioxide 24 mmol/L (22-29); Chloride 106 mmol/L (98-107); Creatinine Clr Calc Pharmacy 47.7338; Globulin 2.3 g/dL (1.3-4.6); Glomerular Filtration Rate 49.4 mL/min (90-130); Glucose 103 mg/dL (65-115); Osmolality Calculated 293 mOsm/kg (285-295); Potassium 4.4 mmol/L (3.5-5.1); Sodium 140 mmol/L (136-145); Total Bilirubin 0.3 mg/dL (0.15-1.2); Total Protein 6.5 g/dL (6.6-8.7)
[2024-04-15 00:11] LABS: Troponin 5 2HR 8.89 ng/L (0-10)
[2024-04-15 00:13] LABS: Troponin 5 2HR Delta -1.11 ABS# (0-10)
[2024-04-15 00:29] VITALS: BP 128/83; PULSE 86; O2SAT 99
== END 2024-04-15 00:29 | disposition home or self-care (01) ==
PROVIDERS: Emergency Provider Emergency Medicine; PCP Family Medicine
DX: R07.89 Other chest pain (principal); I12.9 Hypertensive chronic kidney disease with stage 1 through stage 4 chronic kidney disease, or unspecified chronic kidney disease; N18.9 Chronic kidney disease, unspecified; E78.5 Hyperlipidemia, unspecified; J44.9 Chronic obstructive pulmonary disease, unspecified
CPT/HCPCS: 36415; 71045; 80053; 84484; 85025; 93005; 99285

== ENCOUNTER 2024-05-11 14:14 | Outpatient (CLI) | payer MEDICARE, MEDICAID, SELFPAY ==
[2024-05-11 14:47] LABS: Basophils % 0.3 %; Eosinophils # 0.1 10^3/uL (0.0-0.8); Eosinophils % 2.1 %; Hematocrit 41.5 % (36-47); Lymphocytes # 1.7 10^3/uL (0.8-4.8); Lymphocytes % 26.5 %; Mean Corpuscular HGB Conc 30.8 g/dL (30-55); Mean Corpuscular Hemoglobin 30.5 pg (27-33); Mean Platelet Volume 8.9 fL (7.4-10.4); Monocytes # 0.6 10^3/uL (0.2-0.9); Monocytes % 9.1 %; Neutrophils # 3.86 10^3/uL (1.8-7.7); Neutrophils % 61.5 %; Nucleated Red Blood Cells % 0 %; Platelet Count 271 10^3/cmm (157-399); Red Blood Count 4.19 10^6/uL (3.85-5.65); White Blood Count 6.27 10^3/uL (3.29-11.43)
[2024-05-11 15:04] LABS: Albumin Level 3.9 g/dL (3.5-5.2); Anion Gap 12.8 (5-19); Blood Urea Nitrogen 16 mg/dL (8-23); Calcium 9.1 mg/dL (8.5-10.5); Carbon Dioxide 25 mmol/L (22-29); Chloride 104 mmol/L (98-107); Glomerular Filtration Rate 55.1 mL/min (90-130); Glucose 74 mg/dL (65-115); Phosphorus 3.5 mg/dL (2.5-4.5); Potassium 3.8 mmol/L (3.5-5.1); Sodium 138 mmol/L (136-145)
[2024-05-11 15:04] LABS: Creatinine Urine, Random 139 mg/dL (28-217); Microalbum Creatinine Ratio Ur 7 mg/dL (0-20); Microalbumin Random Urine 1 ug/dL (0-20)
[2024-05-11 15:05] LABS: Calcium 9.1 mg/dL (8.5-10.5)
[2024-05-11 15:12] LABS: Parathyroid Hormone 46.5 pg/mL (15-65)
[2024-05-11 15:20] LABS: 25 Hydroxy Vitamin D 22 ng/mL (30-100)
== END 2024-05-11 14:15 | disposition home or self-care (01) ==
LOC: LAB 14:17
PROVIDERS: PCP Family Medicine; Visit Provider Internal Medicine Nephrology
DX: N18.32 Chronic kidney disease, stage 3b (principal); E55.9 Vitamin D deficiency, unspecified; E78.5 Hyperlipidemia, unspecified
CPT/HCPCS: 36415; 80069; 82044; 82306; 82310; 83970; 85025

== ENCOUNTER → 2024-05-17 09:00 | Outpatient (BNVA) | payer MEDICARE, MEDICAID, SELFPAY | PROVIDERS: PCP Family Medicine; Visit Provider Nurse Practitioner Family | DX: L30.9 Dermatitis, unspecified (principal); L81.4 Other melanin hyperpigmentation; L57.8 Other skin changes due to chronic exposure to nonionizing radiation; Z12.83 Encounter for screening for malignant neoplasm of skin | CPT/HCPCS: 99204 ==

== ENCOUNTER → 2024-06-14 11:00 | Outpatient (BNVA) | payer MEDICARE, MEDICAID, SELFPAY | PROVIDERS: PCP Family Medicine; Visit Provider Nurse Practitioner Family | DX: L30.9 Dermatitis, unspecified (principal); L81.4 Other melanin hyperpigmentation | CPT/HCPCS: 11104; 99214 ==

== ENCOUNTER → 2024-07-07 11:08 | Outpatient (BNVA) | payer MEDICARE, MEDICAID, SELFPAY | PROVIDERS: PCP Family Medicine; Visit Provider Nurse Practitioner Family | DX: L23.9 Allergic contact dermatitis, unspecified cause (principal); L81.4 Other melanin hyperpigmentation; L57.8 Other skin changes due to chronic exposure to nonionizing radiation | CPT/HCPCS: 99214 ==

== ENCOUNTER → 2024-08-04 10:56 | Outpatient (BNVA) | payer MEDICARE, MEDICAID, SELFPAY | PROVIDERS: PCP Family Medicine; Visit Provider Nurse Practitioner Family | DX: L23.9 Allergic contact dermatitis, unspecified cause (principal) | CPT/HCPCS: 99214 ==

== ENCOUNTER 2024-09-06 12:29 | Outpatient (CLI) | payer MEDICARE, MEDICAID, SELFPAY ==
--- NOTE | 2024-09-06 12:45 | USCV_ITS ---
Lorene Benedict Age: 69 Gender: F : 1955 Exam Date: 09/06/2024 13:03 Ordering Phys: Tere Burciaga MD ([email or web address]) Technologist: MOHIT Exam Location: [facility] [place] Indication: stenosis Risk Factors: Previous Vascular Surgery: Right Brachial BP: / Left Brachial BP: / Right Left Velocity (cm/s) Spectral Plaque Velocity (cm/s) Spectral Plaque Syst/Diast Broadening Syst/Diast Broadening 76.00/ 12.90 Prox CCA 68.60 / 16.50 69.50/ 19.40 Mid CCA 65.20 / 19.90 60.80/ 17.20 Distal CCA 67.40 / 21.70 66.90/ 19.20 Prox ICA 62.80 / 21.80 95.10/ 17.70 Mid ICA 88.10 / 29.70 71.20/ 24.30 Distal ICA 84.90 / 29.40 56.00 ECA 58.40 1.10 ICA/CCA 0.90 Antegrade Vertebral Antegrade 44.60/ 9.10 cm/s 46.40/ 11.40 cm/s Tri Subclavian Tri 92.40 88.20 FINDINGS Comparison:. 09/10/23. No significant elevation of systolic or diastolic velocities. Waveforms are normal. Mild carotid atherosclerosis. CONCLUSIONS Bilateral ICA stenosis less than 50%. No interval change in stenosis since prior exam. Dr. Anel Kim DO (Electronically Signed) Final Date: 06 September 2024 15:19 S
== END 2024-09-06 12:30 | disposition home or self-care (01) ==
PROVIDERS: PCP Family Medicine; Visit Provider Internal Medicine Cardiovascular Disease
DX: I65.23 Occlusion and stenosis of bilateral carotid arteries (principal)
CPT/HCPCS: 93880

== ENCOUNTER → 2024-09-20 15:04 | Outpatient (BNVA) | payer MEDICARE, MEDICAID, SELFPAY | PROVIDERS: PCP Family Medicine; Visit Provider Internal Medicine Cardiovascular Disease | DX: R07.89 Other chest pain (principal); E78.2 Mixed hyperlipidemia; I65.23 Occlusion and stenosis of bilateral carotid arteries; G47.33 Obstructive sleep apnea (adult) (pediatric); I12.9 Hypertensive chronic kidney disease with stage 1 through stage 4 chronic kidney disease, or unspecified chronic kidney disease; N18.30 Chronic kidney disease, stage 3 unspecified | CPT/HCPCS: 99214 ==

== ENCOUNTER 2024-09-25 11:27 | Emergency (ER) | payer MEDICARE, MEDICAID, SELFPAY ==
[2024-09-25 11:47] VITALS: BP 154/91; PULSE 80; TEMP 36.8; O2SAT 97; BMI 39.0
--- NOTE | 2024-09-25 13:32 | CTR_ITS ---
PROCEDURE INFORMATION: Exam: CT Abdomen And Pelvis Without Contrast Exam date and time: 09/25/2024 1:53 PM Age: 69 years old Clinical indication: Abdominal pain; Flank; Left; Prior surgery; Surgery date: 6+ months; Surgery type: Appy; Additional info: Left flank pain + decrease urination, HX of kidney atrophy TECHNIQUE: Imaging protocol: Computed tomography of the abdomen and pelvis without contrast. Radiation optimization: All CT scans at this facility use at least one of these dose optimization techniques: automated exposure control; mA and/or kV adjustment per patient size (includes targeted exams where dose is matched to clinical indication); or iterative reconstruction. COMPARISON: CR XR abdomen 1V* [id number] 06/25/2020 3:45 PM RADIATION DOSE METRICS: Total DLP (mGy-cm): 922.73 FINDINGS: Lungs: There are loosely clustered calcified and noncalcified pulmonary nodules in the lower lungs bilaterally measuring up to 4 mm on axial series 4, image 15. Heart: There is mild cardiac enlargement. Diaphragm: There is a small sliding-type hiatal hernia. Liver: There is a 17 mm simple cyst in the superior left lobe of the liver. Gallbladder and biliary ducts: The gallbladder is absent. There is no intrahepatic or extrahepatic bile duct dilation. Pancreas: The pancreas is unremarkable. Spleen: Splenic size is normal. There are scattered calcifications consistent with healed granulomas. Adrenal glands: The adrenal glands are unremarkable. Kidneys and ureters: There is focal cortical atrophy at lateral upper pole of right kidney. Right kidney is normal in size overall. The left kidney is markedly atrophic. There are multifocal parenchymal calcifications in the left kidney. There is no hydronephrosis or stones. Stomach and bowel: The stomach is nondistended, limiting assessment of wall thickness. The small bowel is nondilated. There is moderate distal descending and sigmoid colonic diverticulosis without evidence of diverticulitis. Appendix: The appendix is normal. Intraperitoneal space: There is no free air or significant intraperitoneal free fluid. Vasculature: There is mild aortic atherosclerotic disease. Lymph nodes: There is no lymphadenopathy in the retroperitoneum, mesentery, pelvis or inguinal regions. Urinary bladder: The urinary bladder is unremarkable. Reproductive: The uterus is unremarkable. There is no adnexal mass or large cyst. Bones/joints: There is mild degenerative disease in the lumbar spine. There is mild degenerative disease of both hips. The bony pelvis is intact. Soft tissues: There is a small fat containing ventral hernia. There are small bilateral fat containing inguinal hernias. CT/CT kidney stone [id number] IMPRESSION: 1. No acute findings. 2. Marked asymmetric atrophy of the left kidney. 3. Scattered bilateral lower lung nodules. For patients at low risk (minimal or absent history of smoking and of other known risk factors), no routine follow-up is indicated. For patients at high risk (history of smoking or of other known risk factors), consider optional CT Chest at 12 months. (Reference: Karen) 4. Incidental findings above. REFERENCES: Karen H, et al. Guidelines for Management of Incidental Pulmonary Nodules Detected on CT Images: From the Fleischner Society 2017. Radiology. 2017;284(1):228-243.
--- NOTE | 2024-09-25 13:34 | W.ED.FEMALGU ---
HPI - Female Genitourinary General: Chief complaint: Urogenital-Female Stated complaint: L side pain Time Seen by Provider: 09/25/24 13:23 Source: patient Mode of arrival: ambulatory Limitations: no limitations History of Present Illness: Patient is a 69-year-old female with past medical history of hypertension, chronic kidney disease, kidney stones, and COPD who presents to the emergency department complaining of left flank pain onset yesterday. Patient reports to me a history of atrophied left kidney that she was diagnosed with at an early age, and is followed by nephrology at [facility]. Patient notes that after a wedding yesterday, she had noticed gradual onset of pain to her left flank that radiates down into her left lower quadrant. States that it has been constant, but will intermittently come in spasm pains. States that she has had this over the years, but normally will take Tylenol and this will seem to abort it. She is not currently reporting any alleviating or exacerbating factors that she has noticed. She does note that intermittently she has been running fevers, afebrile at this time though does note taking Tylenol prior to presenting. She has never had any imaging done of her kidneys, she reports, and denies any previous medical procedures. Mildly hypertensive at this time, rest of her vitals are unremarkable. States that she has noticed decrease in her urination, though has still maintained the ability to make urine and is not noting any blood in her urine or dysuria. She also comments that her right kidney is only working at 50%. She states that she has a history of hypokalemia and takes ynyc-wpu-qvklxjl potassium as well as other vitamins. elicited complaint: flank pain Pertinent past history: other ( Left kidney atrophy and CKD) Onset (ago): day(s) Location of symptoms: flank Severity: moderate Female Urogenital Radiation: LLQ Quality of pain: other (Spasms) Consistency: intermittent Vaginal discharge: none Vaginal bleeding: none Urinary symptoms: Difficulty Urinating Exacerbating factors: none Relieving factors: none Associated symptoms: Reports abdominal pain (llq); Deny headache(s) or nausea Treatment prior to arrival: acetaminophen Sexual activity: No Patient : No Related Data Home Medications ?Medication ?Instructions ?Recorded ?Confirmed fluticasone fur. 100 mcg-umeclid 1 inh inhalation DAILY 11/14/19 09/25/24 62.5 mcg-vilant 25 mcg inhalat.powder (Trelegy Ellipta) irbesartan 150 mg tablet 150 mg PO QPM 11/14/19 09/25/24 levothyroxine 75 mcg tablet 225 mcg PO QAM 11/14/19 09/25/24 (Synthroid) simvastatin 20 mg tablet 20 mg PO QPM 11/14/19 09/25/24 brinzolamide 1 % eye 1 drop ophthalmic (eye) TID 11/24/19 09/25/24 drops,suspension (Azopt) magnesium 250 mg tablet 250 mg PO DAILY 01/10/21 09/25/24 flunisolide 25 mcg (0.025 %) nasal 1 spray intranasal BID PRN 10/08/21 09/25/24 spray allergies/congestion zonisamide 100 mg/5 mL oral 25 mg PO QPM 09/20/24 09/25/24 suspension (Zonisade) famotidine 20 mg tablet 20 mg PO BID 09/25/24 09/25/24 hydrocortisone 2.5 % topical cream 1 applic topical BID PRN Skin 09/25/24 09/25/24 Irritation pantoprazole 40 mg tablet,delayed 40 mg PO DAILY 09/25/24 09/25/24 release potassium citrate 99 mg capsule 99 mg PO DAILY 09/25/24 09/25/24 tacrolimus 0.1 % topical ointment 1 applic topical BID PRN 09/25/24 09/25/24 red/irritated rash Previous Rx's ?Medication ?Instructions ?Recorded carvedilol 3.125 mg tablet 3.125 mg PO BID 30 days #60 tabs 11/19/20 Allergies Allergy/AdvReac Type Severity Reaction Status Date / Time Alpha-Gal Allergy Intermediate Unknown Verified 09/25/24 11:52 (Cwofzmtri-Vhsgy-9,3-Gala Review of Systems General: Reports: 10 or more systems reviewed and unremarkable except in HPI and below Const: Reports: fever(s) (subjective); Denies: chills, change in appetite, change in weight or diaphoresis ENMT: Denies: throat pain or hoarseness Card: Denies: chest pain, palpitations or lightheadedness Resp: Denies: dyspnea, productive cough or wheezing GI: Reports: abdominal pain (llq); Denies: nausea, vomiting, diarrhea, constipation, bloating, change in stool character or hematochezia : Reports: flank pain and difficulty voiding; Denies: dysuria or hematuria Musc: Denies: neck pain or back pain Skin/Breast: Denies: rash or new lesions Neuro: Denies: headache(s) or dizziness PFSH ED PFSH: Medical History Hypertension Lichen sclerosus Chronic kidney disease Obstructive sleep apnea Hypertension COPD (chronic obstructive pulmonary disease) Hyperlipidemia Bilateral carotid artery stenosis GERD (gastroesophageal reflux disease) Sleep apnea Kidney stones Hypersomnia Seizures Glaucoma Morbid obesity Hypothyroid Surgical History History of History of dental surgery Hx of cholecystectomy Status post glaucoma surgery History of rotator cuff surgery Family History Father CAD (coronary artery disease) Dementia Diabetes Hyperlipidemia Hypertension Lung disease Mother Cancer Brother Chronic kidney disease (CKD) Sister Chronic kidney disease (CKD) Denies family history of Clotting disorder Suicide Anesthesia complication Bleeding disorder Stroke Social History Smoking and tobacco/nicotine status: never used tobacco/nicotine Alcohol intake: never Substance/Drug Use: never Physical Exam Const: COMMON NORMALS: patient oriented x3, no limitations, alert and well nourished GENERAL APPEARANCE: cooperative ORIENTATION/CONSCIOUSNESS: Yes awake OTHER: Uncomfortable appearing, nontoxic Eye: COMMON NORMALS: Equal, round and reactive pupils present, EOMs intact bilaterally, conjunctivae normal and normal visual willams by confrontation CONJUNCTIVA: Yes conjunctivae normal PUPIL: Yes Equal, round and reactive pupils present Neck/C-Spine: COMMON NORMALS: full ROM, supple, no meningeal signs and no JVD Resp: COMMON NORMALS: normal respiratory effort, No retractions, No use of accessory muscles and clear to auscultation bilaterally AUSCULTATION: clear to auscultation bilaterally, no crackles, no rales, no rhonchi and no wheezes Cardio: COMMON NORMALS: no JVD, regular rate, regular rhythm, S1 normal heart sound present, S2 normal heart sound present, No gallops present (Cardio), No clicks present (Cardio), No murmurs present (Cardio), No rub (Cardio) and Peripheral pulses 2+ throughout RATE: regular rate RHYTHM: regular rhythm HEART SOUNDS: S1 normal heart sound present and S2 normal heart sound present PERIPHERAL PULSES: Peripheral pulses 2+ throughout GI: COMMON NORMALS: Normal to inspection, nondistended, normoactive bowel sounds present, Soft to palpation, non-tender, No hepatosplenomegaly present and no masses AUSCULTATION: Yes normoactive bowel sounds PALPATION: Yes Soft to palpation, No Guarding due to palpation present (GI), No Rigid due to palpation and Yes No hepatosplenomegaly present RECTAL EXAM: deferred : COMMON NORMALS: Yes no CVA tenderness BLADDER/KIDNEY EXAM: Yes no CVA tenderness Back/Pelvis: COMMON NORMALS: no CVA tenderness OTHER: Mild reproducible tenderness to palpation along left lateral flank region Extremity: COMMON NORMALS: normal to inspection and full ROM Neuro: COMMON NORMALS: patient oriented x3, moves all extremities, no focal motor deficits and no sensory deficits noted SENSORIUM/ORIENTATION: Yes alert MENINGEAL SIGNS: Yes no meningeal signs Psych: COMMON NORMALS: mental status grossly normal, cooperative and speech normal SPEECH: Yes normal speech Skin: COMMON NORMALS: no rashes or lesions noted GENERAL SKIN EXAM: no rashes or lesions noted Course Vital Signs: Vital signs: Vital Signs Temperature 98.2 F 09/25/24 11:47 Pulse Rate 78 09/25/24 15:14 Respiratory Rate 16 09/25/24 13:48 Blood Pressure 127/76 09/25/24 15:14 Pulse Oximetry 96 09/25/24 15:14 Oxygen Delivery Me thod Room Air 09/25/24 13:48 MDM - Female Medical Decision Making Patient presenting for greater than a day of left flank pain, of note reported history of atrophic left kidney. Only other associated symptom was some subjective fevers as well as decreased urination, though she was able to provide a urine sample here. There were no significant signs of infection on her urinalysis. Lab work did not show any elevation in her white blood count, kidney function was stable. Vitals have remained unremarkable, notes significant improvement after morphine and Zofran given here. Physical exam there was no CVA tenderness, mild reproducible tenderness to palpation of the left flank region. CT was unremarkable for any acute findings, specifically no stones or signs of infection. Do not suspect emergent cause for her pain at this time with her normal workup, though did tell her due to the acute onset that she needs to closely follow-up with her regular doctor tomorrow and continue follow-ups with nephrology for further monitoring of her chronic kidney disease and atrophic kidney. There is no need for further workup at this time or hospitalization, she is pain-free and agrees with discharge home. She is stable, she did verbalize understanding to return precautions however. Lab Data 09/25/24 13:44 09/25/24 13:44 Radiology Impressions Abdomen/Pelvis CT 09/25/24 13:32 IMPRESSION: 1. No acute findings. 2. Marked asymmetric atrophy of the left kidney. 3. Scattered bilateral lower lung nodules. For patients at low risk (minimal or absent history of smoking and of other known risk factors), no routine follow-up is indicated. For patients at high risk (history of smoking or of other known risk factors), consider optional CT Chest at 12 months. (Reference: Karen) 4. Incidental findings above. REFERENCES: Karen Bellamy, et al. Guidelines for Management of Incidental Pulmonary Nodules Detected on CT Images: From the Fleischner Society 2017. Radiology. 2017;284(1):228-243. Laboratory Results WBC 5.24 10^3/uL (3.29-11.43) 09/25/24 13:44 RBC 4.46 10^6/uL (3.85-5.65) 09/25/24 13:44 Hgb 13.40 g/dL (11.27-16.99) 09/25/24 13:44 Hct 42.3 % (36-47) 09/25/24 13:44 MCV 94.8 fl (85-98) 09/25/24 13:44 MCH 30.0 pg (27-33) 09/25/24 13:44 MCHC 31.7 g/dL (30-55) 09/25/24 13:44 RDW 13.8 % (12.1-15.1) 09/25/24 13:44 Plt Count 235 10^3/cmm (157-399) 09/25/24 13:44 MPV 8.7 fL (7.4-10.4) 09/25/24 13:44 Neut % (Auto) 63.5 % 09/25/24 13:44 Lymph % (Auto) 25.2 % 09/25/24 13:44 [place] % (Auto) 9.7 % 09/25/24 13:44 Eos % (Auto) 1.0 % 09/25/24 13:44 Baso % (Auto) 0.2 % 09/25/24 13:44 Neut # (Auto) 3.33 10^3/uL (1.8-7.7) 09/25/24 13:44 Lymph # (Auto) 1.3 10^3/uL (0.8-4.8) 09/25/24 13:44 [place] # (Auto) 0.5 10^3/uL (0.2-0.9) 09/25/24 13:44 Eos # (Auto) 0.1 10^3/uL (0.0-0.8) 09/25/24 13:44 Baso # (Auto) 0.0 10^3/uL (0.0-0.1) 09/25/24 13:44 Nucleated RBC % (auto) 0 % 09/25/24 13:44 Nucleated RBCs # 0.0 /100WBC 09/25/24 13:44 Sodium 141 mmol/L (136-145) 09/25/24 13:44 Potassium 4.4 mmol/L (3.5-5.1) 09/25/24 13:44 Chloride 108 mmol/L (98-107) H 09/25/24 13:44 Carbon Dioxide 23 mmol/L (22-29) 09/25/24 13:44 Anion Gap 14.4 (5-19) 09/25/24 13:44 BUN 19 mg/dL (8-23) 09/25/24 13:44 Creatinine 1.0 mg/dL (0.5-0.9) H 09/25/24 13:44 GFR Calculation 55.0 mL/min (90-130) L 09/25/24 13:44 Glucose 90 mg/dL (65-115) 09/25/24 13:44 Calculated Osmolality 294 mOsm/kg (285-295) 09/25/24 13:44 Calcium 9.4 mg/dL (8.5-10.5) 09/25/24 13:44 Magnesium 2.0 mg/dL (1.7-2.3) 09/25/24 13:44 Total Bilirubin 0.4 mg/dL (0.15-1.2) 09/25/24 13:44 AST 12 U/L (0-32) 09/25/24 13:44 ALT 9 U/L (0-33) 09/25/24 13:44 Alkaline Phosphatase 74 U/L (35-105) 09/25/24 13:44 Total Protein 6.8 g/dL (6.6-8.7) 09/25/24 13:44 Albumin 4.0 g/dL (3.5-5.2) 09/25/24 13:44 Globulin 2.8 g/dL (1.3-4.6) 09/25/24 13:44 Lipase 25 U/L (13-60) 09/25/24 13:44 Urine Color Yellow (Yellow) 09/25/24 13:15 Urine Appearance Clear (CLEAR) 09/25/24 13:15 Urine pH 5.0 (5-7) 09/25/24 13:15 Ur Specific Alkol 1.019 (1.005-1.030) 09/25/24 13:15 Urine Protein Negative (Negative) 09/25/24 13:15 Urine Glucose (UA) Negative (Normal) 09/25/24 13:15 Urine Ketones Negative (Negative) 09/25/24 13:15 Urine Blood Negative (Negative) 09/25/24 13:15 Urine Nitrate Negative (Negative) 09/25/24 13:15 Urine Bilirubin Negative (Negative) 09/25/24 13:15 Urine Urobilinogen 0.2 mg/dL (Negative) 09/25/24 13:15 Ur Leukocyte Esterase 1+ (Negative) A 09/25/24 13:15 Urine RBC 0-2 /hpf (0-2) 09/25/24 13:15 Urine WBC 6-10 /hpf (0-5) 09/25/24 13:15 Ur Squamous Epith Cells 0-5 /hpf (0-5) 09/25/24 13:15 Amorphous Sediment Not Reportable 09/25/24 13:15 Urine Bacteria None seen /hpf (NONE) 09/25/24 13:15 Hyaline Casts 0-4 /lpf H 09/25/24 13:15 All radiology interpretation(s) finalized by discharge Discharge Plan Discharge Patient Disposition: Home Clinical Impression: Acute flank pain Condition: Stable Prescriptions: No Action Azopt 1 % drops,suspension 1 drop ophthalmic (eye) TID irbesartan 150 mg tablet 150 mg PO QPM simvastatin 20 mg tablet 20 mg PO QPM levothyroxine [Synthroid] 75 mcg tablet 225 mcg PO QAM Michela Ellipta 100-62.5-25 mcg blister with device 1 inh INHALATION DAILY magnesium 250 mg tablet 250 mg PO DAILY flunisolide 25 mcg (0.025 %) spray,non-aerosol 1 spray intranasal BID PRN (Reason: allergies/congestion) Zonisade 100 mg/5 mL suspension 25 mg PO QPM carvedilol 3.125 mg tablet 3.125 mg PO BID 30 Days Qty: 60 5RF Rx Instructions: must administer with a meal/food potassium citrate 99 mg Capsule 99 mg PO DAILY famotidine 20 mg tablet 20 mg PO BID pantoprazole 40 mg tablet,delayed release (DR/EC) 40 mg PO DAILY tacrolimus 0.1 % ointment 1 applic TOPICAL BID PRN (Reason: red/irritated rash) hydrocortisone 2.5 % cream 1 applic TOPICAL BID PRN (Reason: Skin Irritation) Discharge Orders: Discharge ED (Routine); Ordered 09/25/24 Ordered By: Moisés Darling Referrals: Makenzie Nur DO [Primary Care Provider] - Patient Instructions: Flank Pain (ED) Activity Restrictions/Additional Instructions: Apply heat to your abdomen/flank for added relief as we discussed, [id number] pain medications. Please follow-up with your regular doctor tomorrow for general reevaluation as we discussed, and to make sure your symptoms are improving. If you notice that your pain is worsening, if you develop any blood in your urine or pain with urination, or any other major concerns please return to the emergency department for reevaluation as we discussed. 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
[2024-09-25 13:45] VITALS: RESP 16
[2024-09-25] MEDS: ondansetron 2 mg/ML SDV 2 mL 4 MG IVP (13:45)
[2024-09-25] MEDS: morphine 4 mg/mL SDV 1 mL IVP (13:45)
[2024-09-25 13:47] LABS: Bilirubin Urine Negative (Negative); Blood Urine Negative (Negative); Glucose Urine UA Negative (Normal); Ketones Urine Negative (Negative); Leukocyte Esterase Urine 1+ (Negative); Nitrate Urine Negative (Negative); Protein Urine Negative (Negative); Specific Gravity, Urine 1.019 (1.005-1.030); Urine Appearance Clear (CLEAR); Urine Color Yellow (Yellow); Urobilinogen Urine 0.2 mg/dL (Negative)
[2024-09-25 13:48] VITALS: BP 165/97; PULSE 74; RESP 16; O2SAT 98
[2024-09-25 13:51] LABS: Add Urine Microscopic? YES; Bacteria Urine None Seen /hpf; Hyaline Casts Urine 0-4 /lpf; RBC Urine 0-2 /hpf (0-2); Squamous Epithelial Cell Urine 0-5 /hpf (0-5)
[2024-09-25 13:52] LABS: Basophils % 0.2 %; Eosinophils # 0.1 10^3/uL (0.0-0.8); Hematocrit 42.3 % (36-47); Lymphocytes # 1.3 10^3/uL (0.8-4.8); Lymphocytes % 25.2 %; Mean Corpuscular HGB Conc 31.7 g/dL (30-55); Mean Corpuscular Volume 94.8 fl (85-98); Mean Platelet Volume 8.7 fL (7.4-10.4); Monocytes # 0.5 10^3/uL (0.2-0.9); Monocytes % 9.7 %; Neutrophils # 3.33 10^3/uL (1.8-7.7); Neutrophils % 63.5 %; Nucleated Red Blood Cells % 0 %; Platelet Count 235 10^3/cmm (157-399); Red Blood Count 4.46 10^6/uL (3.85-5.65); Red Cell Distribution Width 13.8 % (12.1-15.1); White Blood Count 5.24 10^3/uL (3.29-11.43)
[2024-09-25 14:12] LABS: Alanine Aminotransferase 9 U/L (0-33); Alkaline Phosphatase 74 U/L (35-105); Anion Gap 14.4 (5-19); Aspartate Amino Transferase 12 U/L (0-32); Blood Urea Nitrogen 19 mg/dL (8-23); Calcium 9.4 mg/dL (8.5-10.5); Carbon Dioxide 23 mmol/L (22-29); Chloride 108 mmol/L (98-107); Creatinine Clr Calc Pharmacy 53.2984; Globulin 2.8 g/dL (1.3-4.6); Glucose 90 mg/dL (65-115); Lipase 25 U/L (13-60); Osmolality Calculated 294 mOsm/kg (285-295); Potassium 4.4 mmol/L (3.5-5.1); Sodium 141 mmol/L (136-145); Total Bilirubin 0.4 mg/dL (0.15-1.2); Total Protein 6.8 g/dL (6.6-8.7)
--- NOTE | 2024-09-25 14:34 | PC.PHAR ---
Pt uses mail order for maintenance medications and [facility] for short term medication.
[2024-09-25 15:14] VITALS: BP 127/76; PULSE 78; O2SAT 96
== END 2024-09-25 15:16 | disposition home or self-care (01) ==
PROVIDERS: Emergency Provider Physician Assistant; PCP Family Medicine
DX: R10.9 Unspecified abdominal pain (principal); J44.9 Chronic obstructive pulmonary disease, unspecified; I12.9 Hypertensive chronic kidney disease with stage 1 through stage 4 chronic kidney disease, or unspecified chronic kidney disease; N18.9 Chronic kidney disease, unspecified
CPT/HCPCS: 74176; 80053; 81001; 83690; 83735; 85025; 96374; 96375; 99285; J2270; J2405

== ENCOUNTER 2024-10-06 15:45 | Outpatient (CLI) | payer OTHER, MEDICAID, SELFPAY ==
--- NOTE | 2024-10-06 16:02 | XRR_ITS ---
PROCEDURE INFORMATION: Exam: XR Right Shoulder Exam date and time: 10/06/2024 4:06 PM Age: 69 years old Clinical indication: Acute pain in the right shoulder and pain in the left hip; Additional info: Acute pain in right shoulder TECHNIQUE: Imaging protocol: Radiologic exam of the right shoulder. Views: 2 or more views. COMPARISON: CR XR shoulder RT min 2V* [id number] 11/16/2021 7:21 PM FINDINGS: Bones/joints: Alignment is normal. No acute fracture. Glenohumeral joint space is suboptimally evaluated. Inferior humeral osteophytes are present. Mild AC joint arthritis. No acute fracture. Soft tissues: Visible soft tissues are unremarkable. XR/XR shoulder RT min 2V* [id number] IMPRESSION: No acute findings.
--- NOTE | 2024-10-06 16:02 | XRR_ITS ---
PROCEDURE INFORMATION: Exam: XR Right Hip Exam date and time: 10/06/2024 4:14 PM Age: 69 years old Clinical indication: Hip pain; Right hip TECHNIQUE: Imaging protocol: Radiologic exam of the right hip. Views: 1 view hip with pelvis when performed. COMPARISON: CT kidney stone [id number] 09/25/2024 1:53 PM FINDINGS: Bones/joints: Femoroacetabular alignment is normal. Joint space is preserved. There are superolateral acetabular and inferior femoral osteophytes. No femoral fracture. The visible portion of the pelvis and sacrum is intact. Soft tissues: Visible soft tissues are unremarkable. XR/XR hip RT 2-3V wo/w pel* [id number] IMPRESSION: 1. No acute findings. 2. 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
== END 2024-10-06 15:46 | disposition home or self-care (01) ==
LOC: RAD 15:54
PROVIDERS: PCP Family Medicine
DX: M19.011 Primary osteoarthritis, right shoulder (principal); M25.711 Osteophyte, right shoulder; M16.11 Unilateral primary osteoarthritis, right hip; M25.751 Osteophyte, right hip
CPT/HCPCS: 73030; 73502

== ENCOUNTER → 2024-10-24 14:30 | Outpatient (BNVA) | payer OTHER, MEDICAID, SELFPAY | PROVIDERS: PCP Family Medicine; Visit Provider Nurse Practitioner Family | DX: L23.9 Allergic contact dermatitis, unspecified cause (principal); L57.8 Other skin changes due to chronic exposure to nonionizing radiation | CPT/HCPCS: 99214 ==

== ENCOUNTER 2024-12-04 23:15 | Emergency (ER) | payer OTHER, MEDICAID, SELFPAY ==
[2024-12-04 23:14] VITALS: BP 100/62; PULSE 92; RESP 18; TEMP 36.6; O2SAT 93; BMI 37.0
--- OUTSIDE RECORDS SUMMARY | 2024-12-04 23:30 | XMS_ITS | Encounter Summary ---
Author Organization [facility] Address [address] [place] [address] Care Team Providers Care Transformation Manager Name Role Phone Makenzie Nur DO Primary Care Provider [phone] Reason for Visit * Reason Comments Question Encounter Details Date Type Department Care Team ([facility] Contact Info) Description 11/30/2024 Telephone [facility] Medicine [place] [address] [place] [address] Makenzie Nur, [address] [place] [address] Question Social History Tobacco Use Types Packs/Day Years Used Date Smoking Tobacco: Never Passive Smoke Exposure: Never Smokeless Tobacco: Never Alcohol Use Standard Drinks/Week Comments No 0 (1 standard drink = 0.6 oz pur e alcohol) Financial Resource Strain Answer Date R ecorded How hard is it for you to pa y for the very basics like food, housing, medical care, and heating? Not hard at all 12/12/2021 Food Insecurity Answer Date Recorded In the past 12 months, have you worried that your food would run out before you had money to buy more? Never true 12/12/2021 In the past 12 months, did y ou run out of food and didn't have money to buy more? Never true 12/12/2021 Transportation Needs Answer Date Record ed In the past 12 months, has l ack of transportation kept you from medical appointments or from getting medications? 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 12/01/2024 10:54 AM I spoke with pt and advised her of this message from provider. Pt said she had a MRI several years ago. Pt said she is having vision problems but she believes it is from her neck, pt reports floatersin her right eye and was seen last week by eye dr. Pt says the floaters are related to her glaucoma. Reports she had eye surgery back in 2011 for left eye and 2017 for right eye. Pt will contact clinic if she has any changes. Melissa CHEN * Telephone Encounter - Melissa Moyer LPN - 12/01/2024 9:00 AM CDT Images from the original note were not included. 12/01/2024 9:00 AM I spoke with pt and advised her of this message from September. Pt is wanting to know if she can be tested for this. Melissa CHEN * Telephone Encounter - Melissa Moyer LPN - 11/30/2024 10:45 AM CDT 11/30/2024 10:45 AM I returned pt's call and she is asking if she was ever diagnosed with Meningioma. Pt said she was called by someone and they told her if she was ever diagnosed with Meningioma from taking the Depo shot in the late s and it caused seizures, that there is a law suite going on. Pt said she did take the Depo shot around that time and wanted to know if she was ever diagnosed with Meningioma. Melissa CHEN * Telephone Encounter - Jh Srivastava - 11/30/2024 10:05 AM CDT Copied from [facility] #[id number]. Topic: Patient or Caregiver Communication Request >> Nov 30, 2024 10:04 AM Jh San wrote: Patient or Caregiver requesting that a message be sent to Care Team Caller: Lorenelianna Benedict Patient/Caregiver Callback Number: Telephone Information: Call Notes: wanting to know if she has been diagnosed with Meningiona. documented in this encounter Plan of Treatment Upcoming Encounters Date Type Department Care Team (Late st Contact Info) Description 02/03/2025 11:30 AM CDT Telemed [facility] Telemedicine - [place] [address] [place] [address] Maria L Hensley MD [address] [place] [id number] 02/09/2025 10:00 AM CDT Office Visit [facility] [address] [place] [address] September, [place] [address] 02/10/2025 3:00 PM CDT Office Visit [facility] [address] [place] [address] September, [place] [id number] 03/07/2025 11:00 AM CDT Office Visit [facility] [address] [place] [address] September, [place] [phone] 03/21/2025 1:30 PM CDT Appointment [facility] Neurology [facility] [address] [place] [phone] You Kim MD [address] [place] [address] 05/18/2025 9:40 AM SUMMER COUNSELOR Office Visit [facility] [address] [place] [facility] [address] Makenzie Nur, DO [address] [place] [facility] [place] [address] 05/26/2025 10:40 AM SUMMER COUNSELOR Office Visit [facility] [address] [place] [facility] [place] [address] [place], September, [facility] [address] [place] [facility] [place] [phone] documented as of this encounter Goals Goal Patient Goal Type Associated Problems Recent Progress Patient-Stated? Author Patient Stated General On track( 023 5:49 PM CDT) Yes Nahomy Mdoi Note: Patient will work on enforcing boundaries in primary relationship and allow herself to connect with new people by next scheduled contact -encouraged patient to spend time with daughters and neighbors for support -advised patient to create a list to help with decision making -encouraged patient to block off time to prioritize her own needs Discussed with patient referral for [facility], -clinician will reach out to [facility] to began intake process (clinician will follow up with this, local [facility] not an option) -clinician will complete intake form for [facility] -patient shares she does not have many people to talk about her struggles with Patient will think of new hobby to help keep her distracted from partner, discussed volunteering opportunities. documented as of this encounter Visit Diagnoses Not on filedocumented in this encounter Care Teams Transformation Manager Relationship Specialty Start Date End Date Makenzie Nur DO [address] [place] [address] PCP - General Family Practice 09/15/17 documented as of this encounter
--- OUTSIDE RECORDS SUMMARY | 2024-12-04 23:30 | XMS_ITS | Encounter Summary ---
Author Organization [facility] Address [address] [place] [address] Care Team Providers Care Cabinetmaker Supervisor Name Role Phone Makenzie Nur DO Primary Care Provider [phone] Reason for Visit * Reason Comments Information Encounter Details Date Type Department Care Team ([facility] Contact Info) Description 11/28/2024 Telephone [facility] [address] [place] [address] Makenzie Nur, [address] [place] [address] Information Social History Tobacco Use Types Packs/Day Years [...] on file Legal Sex Female 12:37 PM [employer] Gender Identity Not on file Sexual Orientation Not on file documented as of this encounter Miscellaneous Notes * Telephone Encounter - Melissa Moyer LPN - 11/28/2024 3:51 PM CDT Sent medications to preferred pharmacy. Melissa Moyer LPN, 11/28/2024 3:51 PM * Telephone Encounter - Hailey Suarez - 11/28/2024 2:53 PM CDT Copied from [facility] #[id number]. Topic: Medication Request >> Nov 28, 2024 2:51 PM Hailey Mccoy wrote: Caller Name: Lorene Benedict Callback Number: Telephone Information: Medication (Ask patient/caregiver to spell if possible): All medications Note: All medication prescriptions can be requested using one [facility] Call Notes: Patients asks that all medication be sent to [facility]. Request: Change Pharmacy Did the patient/caregiver contact their pharmacy prior to calling? Yes Caller requests to send to a different pharmacy, update and send refill to [facility] Is there an encounter open? No documented in this encounter Plan of Treatment Upcoming Encounters Date Type Department Care Team (Late st Contact Info) Description 02/03/2025 11:30 AM CDT Telemed [facility] [place] [address] [place] [id number] Maria L Hensley MD [address] [facility] [place] [address] 02/09/2025 10:00 AM CDT Office Visit [facility] [address] [facility] [place] [address] September, [employer] [address] [facility] [place] [address] 02/10/2025 3:00 PM CDT Office Visit [facility] [address] [facility] [place] [address] September, [place] [address] 03/07/2025 11:00 AM CDT Office Visit [facility] [address] [place] [address] September, [place] [address] 03/21/2025 1:30 PM CDT Appointment [facility] [address] [place] [address] You Kim MD [address] [address] 05/18/2025 9:40 AM [employer]APOR [employer]ATER Office Visit [facility] [address] [place] [address] Makenzie Nur, DO [address] [place] [address] 05/26/2025 10:40 AM VAPOR COATER Office Visit [facility] [address] [place] [address] September, [place] [address] documented as of this encounter Goals Goal Patient Goal Type Associated Problems Recent Progress Patient-Stated? Author Patient Stated General On track( 023 5:49 PM CDT) Yes Nahomy Modi Note: Patient will work on enforcing boundaries in primary relationship and allow herself to connect with new people by next scheduled contact -encouraged patient to spend time with daughters and neighbors for support -advised patient to create a list to help with decision making -encouraged patient to block off time to prioritize her own needs Discussed with patient referral for [facility], -clinician will reach out to [facility] to began intake process (clinician will follow up with this, local [facility] not an option) -clinician will complete intake form for [facility] -patient shares she does not have many people to talk about her struggles with Patient will think of new hobby to help keep her distracted from partner, discussed volunteering opportunities. documented as of this encounter Visit Diagnoses Diagnosis Mixed simple and mucopurulent chronic bronchitis (CMS/HCC) Other chronic bronchitis Vitamin D deficiency Unspecified vitamin D deficiency Lichen sclerosus Circumscribed scleroderma Pain in right arm Allergy to alpha-gal Chronic sphenoidal sinusitis Chronic maxillary sinusitis Chronic obstructive pulmonary disease, unspecified COPD type (CMS/HCC) Chronic midline low back pain with right-sided sciatica Essential hypertension Unspecified essential hypertension Acquired hypothyroidism Unspecified hypothyroidism Staph skin infection Unspecified local infection of skin and subcutaneous tissue Yeast infection Other and unspecified mycoses Gastroesophageal reflux disease without esophagitis Esophageal reflux Mixed hyperlipidemia documented in this encounter Care Teams Cabinetmaker Supervisor Relationship Specialty Start Date End Date Makenzie Nur DO [address] [place] [address] PCP - General Family Practice 09/15/17 documented as of this encounter
--- OUTSIDE RECORDS SUMMARY | 2024-12-04 23:30 | XMS_ITS | Clinical Summary ---
Author Organization [facility] Address [address] [place] [address] Care Team Providers Care Computer Equipment Installer Name Role Phone Makenzie Nur Primary Care Provider [phone] Allergies Active Allergy Reactions Criticality Noted Date Comments Alpha-Gal (Sfxpcbawd-Vayft-5,3-Galactose) Diarrhea Low 11/04/2023 Sertraline Dizziness Low 03/20/2022 Sulfa (Sulfonamide Antibiotics) Itching,Anxiety Low 07/02/2021 Medications cpap medical deviceIndications :Obstructive sleep apnea CPAP @ 9 cwp with heated humidifier. Length of need:99 mo; per patient comfort mask with headgear q 6 mo; mask only q 3 mo; as needed cushions q mo; Tubing heated, water chamber 1 per 3 months, chin strap 1 per 6 months, filters disposable 2 per month, filters reusable 1 per 6 months.. 1 Each 021 Active acetaminophen (TYLENOL) 500 mg tablet Take 500 mg by mouth every 6 hours as needed. 018 Active brinzolamide (AZOPT) 1 % suspension 023 Active latanoprost (XALATAN) 0.005 % solution 023 Active EPINEPHrine (EPIPEN) 0.3 mg/0.3 mL Auto-InjectorIndi cations:Allergy to alpha-gal Inject 0.3 mL (0.3 mg) by intramuscular injection 1 time daily as needed for Anaphylaxis. 2 Each 024 Active mupirocin (BACTROBAN) 2 % OintmentIndicatio ns:Staph skin infection Apply to affected area daily. 30 Gram 3 024 Active zonisamide (Zonisade) 20 mg/mL SuspensionIndicat ions:Seizure disorder (CMS/HCC) TAKE 20 ML BY MOUTH ONCE DAILY 600 mL 3 Active hydrocortisone (HYTONE) 2.5 % Cream Apply to affected area 2 times daily. Active tacrolimus (PROTOPIC) 0.1 % Ointment Apply to affected area 2 times daily. Active carvediloL (COREG) 6.25 mg tablet Take 6.25 mg by mouth 2 times daily with meals. Active albuterol sulfate HFA 90 mcg/actuation aerosol inhalerIndication s:Mixed simple and mucopurulent chronic bronchitis (CMS/HCC) Take 2 Puffs by inhalation every 6 hours as needed for Shortness of Breath. 18 Gram 6 Active cholecalciferol, vitamin D3, (Vitamin D3) 1,000 unitIndications:V itamin D deficiency Take 1 Tablet (1,000 Units) by mouth daily. 90 Tablet Active clobetasoL (TEMOVATE) 0.05 % CreamIndications: Lichen sclerosus Apply to affected area 2 times daily. APPLY TO THE AFFECTED AREA TWICE A DAY 30 Gram 1 Active diclofenac sodium (VOLTAREN) 1 % gelIndications:Pa in in right arm Apply 2 Grams to affected area 4 times daily. 100 Gram 2 Active famotidine (PEPCID) 20 mg tabletIndications :Allergy to alpha-gal Take 1 Tablet (20 mg) by mouth 2 times daily. 180 Tablet 1 Active flunisolide (NASALIDE) 25 mcg (0.025 %) [place], Non-AerosolIndica tions:Chronic sphenoidal sinusitis,Chronic maxillary sinusitis Administer 2 Sprays in each nostril 2 times daily. 25 mL 6 Active fluticasone-umecl idinium-vilantero l (Trelegy Ellipta) 100-62.5-25 mcg Disk with DeviceIndications :Chronic obstructive pulmonary disease, unspecified COPD type (CMS/HCC) INHALE 1 PUFF INTO THE LUNGS ONCE DAILY 3 Each 4 Active gabapentin (GRALISE) 300 mg Extended Release 24 hour tabletIndications :Chronic midline low back pain with right-sided sciatica Take 1 Tablet (300 mg) by mouth daily at bedtime. 100 Tablet 1 025 Active irbesartan (AVAPRO) 150 mg tabletIndications :Essential hypertension Take 1 Tablet (150 mg) by mouth daily at bedtime. 100 Tablet 1 025 Active liothyronine (CYTOMEL) 5 mcg TabletIndications :Acquired hypothyroidism Take 3 Tablets (15 mcg) by mouth daily. 270 Tablet 1 025 Active nystatin (NYSTOP) 100,000 unit/gram powderIndications :Yeast infection Apply to affected area 2 times daily. 60 Gram 1 025 Active pantoprazole (PROTONIX) 40 mg Tablet, Delayed Release (E.C.)Indications :Gastroesophageal reflux disease without esophagitis Take 1 Tablet (40 mg) by mouth daily. 90 Tablet 1 025 Active simvastatin (ZOCOR) 20 mg tabletIndications :Mixed hyperlipidemia Take 1 Tablet (20 mg) by mouth daily with supper. 100 Tablet 1 025 Active fluticasone-umecl idinium-vilantero l (Trelegy Ellipta) 100-62.5-25 mcg Disk with DeviceIndications :Chronic obstructive pulmonary disease, unspecified COPD type (CMS/HCC) INHALE 1 PUFF INTO THE LUNGS ONCE DAILY 3 Each 4 024 2024 Discontinued(R eorder) simvastatin (ZOCOR) 20 mg tabletIndications :Mixed hyperlipidemia Take 1 Tablet (20 mg) by mouth daily with supper. 100 Tablet 3 024 2024 Discontinued(R eorder) carvediloL (COREG) 3.125 mg tablet Take 1 Tablet (3.125 mg) by mouth daily. 100 Tablet 3 024 2024 Discontinued irbesartan (AVAPRO) 150 mg tabletIndications :Essential hypertension Take 1 Tablet (150 mg) by mouth daily at bedtime. 100 Tablet 3 024 2024 Discontinued(R eorder) clobetasoL (TEMOVATE) 0.05 % CreamIndications: Lichen sclerosus Apply to affected area 2 times daily. APPLY TO THE AFFECTED AREA TWICE A DAY 30 Gram 10 10/17/2 024 2024 Discontinued(R eorder) nystatin (NYSTOP) 100,000 unit/gram powderIndications :Yeast infection Apply to affected area 2 times daily. 60 Gram 3 024 2024 Discontinued(R eorder) cholecalciferol, vitamin D3, (Vitamin D3) 1,000 unitIndications:V itamin D deficiency Take 1 Tablet (1,000 Units) by mouth daily. 90 Tablet 3 024 2024 Discontinued(R eorder) pantoprazole (PROTONIX) 40 mg Tablet, Delayed Release (E.C.)Indications :Gastroesophageal reflux disease without esophagitis Take 1 Tablet (40 mg) by mouth daily. 90 Tablet 3 2024 Discontinued(R eorder) albuterol sulfate HFA 90 mcg/actuation aerosol inhalerIndication s:Mixed simple and mucopurulent chronic bronchitis (CMS/HCC) Take 2 Puffs by inhalation every 6 hours as needed for Shortness of Breath. 18 Gram 11 2024 Discontinued(R eorder) gabapentin (GRALISE) 300 mg Extended Release 24 hour tabletIndications :Chronic midline low back pain with right-sided sciatica Take 1 Tablet (300 mg) by mouth daily at bedtime. 100 Tablet 3 2024 Discontinued(R eorder) liothyronine (CYTOMEL) 5 mcg TabletIndications :Acquired hypothyroidism TAKE 3 TABLETS BY MOUTH DAILY 270 Tablet 3 2024 Discontinued(R eorder) flunisolide (NASALIDE) 25 mcg (0.025 %) [place], Non-AerosolIndica tions:Chronic sphenoidal sinusitis,Chronic maxillary sinusitis Administer 2 Sprays in each nostril 2 times daily. 25 mL 6 2024 Discontinued(R eorder) famotidine (PEPCID) 20 mg tabletIndications :Allergy to alpha-gal Take 1 Tablet (20 mg) by mouth 2 times daily. 60 Tablet 3 025 2024 Discontinued(R eorder) diclofenac sodium (VOLTAREN) 1 % gelIndications:Pa in in right arm Apply 2 Grams to affected area 4 times daily. 100 Gram 2 025 2024 Discontinued(R eorder) famotidine (PEPCID) 20 mg tabletIndications :Allergy to alpha-gal Take 1 Tablet (20 mg) by mouth 2 times daily. 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 ANDRE (generalized anxiety disorder) 05/28/2022 Vitamin D deficiency 02/04/2022 Mixed hyperlipidemia 09/30/2020 Slow transit constipation 09/30/2020 Essential hypertension 09/30/2020 Stage 3a chronic kidney disease 10/21/2019 Obstructive sleep apnea 12/15/2017 Chronic midline low back pain with right-sided s ciatica 12/15/2017 Gastroesophageal reflux disease without esophagi tis 12/15/2017 Chronic obstructive pulmonary disease 12/15/2017 Acquired hypothyroidism 12/15/2017 Seizure disorder 12/15/2017 Resolved Problems Problem Noted Date Diagnosed Date Resolved Date Morbid obesity with body mas s index of 40.0-49.9 04/23/2018 07/08/2024 Chronic cough 12/01/2017 09/30/2020 Encounters Date Type Department Care Team Description 11/30/2024 Telephone [facility] [address] [facility] [place] [address] Makenzie Nur, DO Question 11/28/2024 Telephone [facility] [address] [facility] [place] [address] Makenzie Nur, DO Information 11/11/2024 Results Follow-Up [facility] [address] [facility] [place] [facility] [place] [address] Makenzie Nur, DO CBC WITH DIFFERENTIAL, COMPREHENSIVE METABOLIC PANEL, TSH, Additional followed-up results: 2 11/10/2024 9:40 AM CDT Office Visit [facility] [address] [place] [address] Makenzie Nur DO Essential hypertension (Primary Dx); Allergy to alpha-gal; Stage 3a chronic kidney disease ([facility]); Seizure disorder ([facility]); Vitamin D deficiency; Panlobular emphysema ([facility]); Acquired hypothyroidism; ANDRE (generalized anxiety disorder); Mixed hyperlipidemia; Gastroesophageal reflux disease without esophagitis; Chronic midline low back pain with right-sided sciatica; Obstructive sleep apnea; Severe obesity (BMI 35.0-39.9) with comorbidity ([facility]) 10/26/2024 External Device Data STL ABSTRACTION Provider, Abstract 10/26/2024 Telephone [facility] [address] [place] [address] Ramirez, September, RESTAURANT GREETER Provider Call 10/25/2024 External Device Data STL ABSTRACTION Provider, Abstract 10/24/2024 1:00 PM CDT Procedure visit [facility] [address] [place] [address] Ramirez, September, RESTAURANT GREETER Acute pain of right shoulder (Primary Dx); Vertigo 10/10/2024 Results Follow-Up [facility] [address] [place] [address] Ramirez, September, RESTAURANT GREETER XR SHOULDER 2+ VW RIGHT 10/10/2024 Orders Only [facility] [address] [place] [address] Ramirez, September, RESTAURANT GREETER Acute pain of right shoulder; Acute hip pain, right 10/06/2024 1:20 PM CDT Office Visit [facility] [address] [place] [address] Ramirez, September, RESTAURANT GREETER Acute hip pain, right (Primary Dx); Acute pain of right shoulder; Vision changes 10/06/2024 Telephone [facility] [address] [place] [address] Makenzie Nur DO Needs Orders Written; Needs Orders Written 09/26/2024 2:00 PM CDT Office Visit [facility] [address] [place] [address] Ramirez, September, RESTAURANT GREETER Chronic bilateral low back pain with right-sided sciatica (Primary Dx); Essential hypertension 09/26/2024 Orders Only [facility] [address] [place] [place] [address] Provider, Abstract 09/15/2024 1:00 PM CDT Office Visit [facility] [address] [place] [address] Ramirez, September, RESTAURANT GREETER Seizure disorder (Primary Dx); Allergy to alpha-gal; Pain in right arm; Rash 09/07/2024 Refill [facility] [address] [place] [address] Ramirez, September, RESTAURANT GREETER Seizure disorder (CMS/HCC) from Last 3 Months Immunizations Immunization Administration Dates Next Due (PFIZER)(12 YR UP) COVID-19 VACCINE - EMERGENCY USE AUTHORIZATION, MRNA, [id number](PF) 30 MCG/0.3 ML IM SUSP 03/05/2024 (PREVNAR 20)(6 WKS UP) PNEUM OCOCCAL CONJUGATE VACCINE 20-VALENT (PCV20), POLYSACCHARIDE [id number] CONJUGATE, ADJUVANT 0.5 ML (PF) IM 02/17/2022 (Pfizer Bivalent)(12 Yr Up) COVID-19 Vaccine - Emergency Use Authorization, MRNA, Lnp-S(Pf) 30 Mcg/0.3 Ml Susp 04/02/2022 (SPIKEVAX) (12 YRS UP PRIMAR Y SERIES) COVID-19 VACCINE - MRNA-1273(PF) 100 MCG/0.5 ML IM SUSP 05/03/2021,09/12/2020,08/14/2020 (TENIVAC)(7 YRS UP) TETANUS AND DIPHTHERIA TOXOIDS, ADSORBED (5 LF OF TETANUS TOXOID AND 2 LF OF DIPHTHERIA TOXOID), 0.5ML (PF), IM 11/24/2023 INFLUENZA VACCINE HIGH DOSE QUADRIVALENT 65 YR UP PF IM 03/05/2024,02/22/2023 INFLUENZA VACCINE QUADRIVALE NT 3 YR UP PF IM 02/23/2019 INFLUENZA VACCINE QUADRIVALENT 6 MOS UP IM 02/19 INFLUENZA VACCINE QUADRIVALE NT 6 MOS UP PF IM 02/12/2020,02/23/2019 Influenza Seasonal Unspecifi ed Formulation IM 02/13/2021,02/23/2019,03/21/2017 Influenza Vaccine High Dose 65+ Yrs IM 2 Influenza Vaccine Quad Split 3+ Yrs Im 8 Influenza Vaccine Tri Split 4+ Im 02/23/2019, PNEUMOVAX (PPSV23) pneumococ nick polysaccharide 23-valent Vaccine 04/06/2016 PREVNAR (PCV13) pneumococcal 13-valent conjugate Vaccine 02/13/2021 Pneumococcal Polysaccharide Vacc 23-karan IM SCHIP 04/06/2016 Zoster Vaccine Live SQ 03/21/2017 Family History Medical History Relation Name Comments Cancer Brother Bladder Heart Disease Brother Thyroid Disease Brother Heart Disease Father Cancer Maternal Grandmother Brain Cancer Mother Cancer Paternal Grandfather Unknown Sister 1 Mat 1/2 Lung Cancer Sister 2 Pat 1/2 Lung Cancer Sister 3 Pat 1/2 Breast Cancer Neg Hx Colon Cancer Neg Hx Ovarian Cancer Neg Hx Relation Name Status Comments Brother Daughter 1 Alive Daughter 2 Alive Father Maternal Grandmother Mother Paternal Grandfather Sister 1 Mat 1/2 Sister 2 Pat 1/2 Sister 3 Pat 1/2 Social History Tobacco Use Types Packs/Day Years Used Date Smoking Tobacco: Never Passive Smoke Exposure: Never Smokeless Tobacco: Never Tobacco Cessation:Counseling Given: No Alcohol Use Standard Drinks/Week Comments No 0 [...] on file 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 Gender Identity Not on file Sexual Orientation Not on file Last Filed Vital Signs Vital Sign Reading Time Taken Comments Blood Pressure 138/82 11/10/2024 9:41 AM CDT Pulse 84 11/10/2024 9:41 AM CDT Temperature 36.1 C (97 F) 11/10/2024 9:41 AM CDT Respiratory Rate 18 11/10/2024 9:41 AM CDT Oxygen Saturation 98% 11/10/2024 9:41 AM CDT Inhaled Oxygen Concentration - - Weight 88.9 kg (196 lb) 11/10/2024 9:41 AM CDT Height 152.4 cm (5') 11/10/2024 9:41 AM CDT Body Mass Index 38.28 11/10/2024 9:41 AM CDT Plan of Treatment Upcoming Encounters Date Type Department Care Team (Late st Contact Info) Description 02/03/2025 11:30 AM CDT Telemed [facility] - [place] [address] [place] [phone] Maria L Hensley MD [address] [place] [place] [phone] 02/09/2025 10:00 AM CDT Office Visit [facility] [address] [facility] [place] [address] RamirezSeptember, RESTAURANT GREETER [address] [place] [facility] [place] [phone] 02/10/2025 3:00 PM CDT Office Visit [facility] [address] [facility] [address] September, [place] [address] 03/07/2025 11:00 AM CDT Office Visit [facility] [address] [place] [address] September, [place] [address] 03/21/2025 1:30 PM CDT Appointment [facility] [address] [place] [address] You Kim MD [address] [place] [address] 05/18/2025 9:40 AM MEASURING MACHINE TENDER Office Visit [facility] [address] [facility] [place] [address] Makenzie Nur, [address] [place] [address] 05/26/2025 10:40 AM MEASURING MACHINE TENDER Office Visit [facility] [address] [place] [address] September, [place] [address] Health Maintenance Due Date Last Done Comments Pre-Diabetes and Diabetes Screening 1955 FIT/FOBT Q 1 YEAR (AUTO ORDER) 1973 COLORECTAL CANCER SCREENING (AUTO ORDER) 2000 COLORECTAL SCREENING 2000 FIT/FOBT Q 1 year 2000 Flex Sig/CT Colonography Q 5 years 2000 RSV VACCINE (60+ or ) (1 - Risk 60-74 years 1-dose series) 2015 ZOSTER VACCINE (2 of 3) 05/16/2017 03/21/2017 DTAP/TDAP/TD VACCINES (1 - Tdap) 11/25/2023 11/24/19 24, 09/12/2002 COVID-19 Vaccine (6 - 2023-2 5 season) 2024 03/05/2024, 04/02/2022, 05/03/2021, Additional history exists Medicare Advantage ([place]) Preventative Visit/Annual Wellness Visit 06/08/2024 04/22/2023, 12/12/2021 FLEX SIG/CT COLONOGRAPHY Q 5 YEARS (AUTO ORDER) 11/03/2024 11/04/2019, 11/04/2019 BREAST CANCER SCREENING 04/05/2025 04/05/20 24, 01/23/2021, 01/06/2020, Additional history exists Colorectal Cancer Screening (AUTO ORDER) 08/04/2025 Colorectal Cancer Screening 08/04/2025 FIT-DNA Q 3 years 08/04/2025 08/04/2022, 11/04/2019 FIT/ DNA Q 3 YEARS (AUTO ORDER) 08/04/2025 08/04/2022, 11/04/2019, 11/04/2019 OSTEOPOROSIS SCREENING 05/27/2028 05/27/2023 PNEUMOCOCCAL VACCINE 50+ YEARS Completed 0 02/17/2022, 02/13/2021, 04/06/2016, Additional history exists INFLUENZA VACCINE Completed 03/05/2024, , 02/17/2022, Additional history exists Goals Goal Patient Goal Type Associated Problems [...] own needs Discussed with patient referral for [facility], -clinician will reach out to [facility] to began intake process (clinician will follow up with this, local [facility] not an option) -clinician will complete intake form for [facility] -patient shares she does not have many people to talk about her struggles with Patient will think of new hobby to help keep her distracted from partner, discussed volunteering opportunities. Procedures Procedure Name Priority Date/Time Associated Diagnosis Comments VITAMIN D 25 HYDROXY Routine 11/10/2024 10:18 AM CDT Vitamin D deficiency LIPID PANEL Routine 11/10/2024 10:18 AM CDT Essential hypertension TSH Routine 11/10/2024 10:18 AM CDT Essential hypertension COMPREHENSIVE METABOLIC PANEL Routine 11/10/2024 10:18 AM CDT Essential hypertension CBC WITH DIFFERENTIAL Routine 11/10/2024 10:18 AM CDT Essential hypertension RI ARTHROCENTESIS ASPIR&/INJ MAJOR JT/BURSA W/O US Routine 10/24/2024 1:00 PM CDT Acute pain of right shoulder XR HIP 2 OR 3 VIEWS LT Routine 10/06/2024 Acute hip pain, right XR SHOULDER 2+ VW RIGHT Routine 10/06/2024 Acute pain of right shoulder COMPREHENSIVE METABOLIC PANEL Routine 09/25/2024 10:48 AM CDT MAMMO 3D TAMARA SCREEN BILAT W OR WO CAD Routine 04/05/2024 Screening mammogram, encounter for XR DEXA BONE DENSITY AXIAL 1 OR MORE SITES Routine 05/27/2023 3:47 PM MEASURING MACHINE TENDER Screening for osteoporosis assisted (current) use of inhaled steroids COLON CANCER SCREEN, STOOL DNA Routine 08/04/2022 4:30 PM MEASURING MACHINE TENDER Screening for colon cancer from Last 3 Months or Most Recently Relevant to Health Maintenance Results * CBC WITH DIFFERENTIAL (11/10/2024 10:18 AM CDT) WBC 5.8 3.8 - 10.8 Thousand/u L [facility] RBC 4.26 3.80 - 5.10 Million/uL [facility] HEMOGLOBIN 13.2 11.7 - 15.5 g/dL [facility] HEMATOCRIT 41.0 35.0 - 45.0 % [facility] MCV 96.2 80.0 - 100.0 fL [facility] MCH 31.0 27.0 - 33.0 pg [facility] MCHC 32.2 32.0 - 36.0 g/dL [facility] Comment: For adults, a slight decrease in the calculated MCHC value (in the range of 30 to 32 g/dL) is most likely not clinically significant; however, it should be interpreted with caution in correlation with other red cell parameters and the patient's clinical condition. RDW 12.4 11.0 - 15.0 % [facility] PLATELETS 258 140 - 400 Thousand/u L [facility] MPV 9.1 7.5 - 12.5 fL [facility] NEUTROPHIL ABSOLUTE 4,217 1,500 - 7,800 cells/uL [facility] LYMPHOCYTE ABSOLUTE 1,090 850 - 3,900 cells/uL [facility] MONOCYTE ABSOLUTE 406 200 - 950 cells/uL [facility] EOSINOPHIL ABSOLUTE 70 15 - 500 cells/uL [facility] BASOPHILS ABSOLUTE 17 0 - 200 cells/uL [facility] NEUTROPHIL 72.7 % [facility] LYMPHOCYTES 18.8 % [facility] MONOCYTE 7.0 % [facility] EOSINOPHILS 1.2 % [facility] BASOPHILS 0.3 % [facility] Comment: FASTING:UNKNOWN FASTING: UNKNOWN Test Performed at: [facility] [address] [address] Jennifer Smith MD Blood 11/10/2024 10:1 8 AM CDT 11/10/2024 10:18 AM CDT Makenzie Nur DO HEMATOLOGY ORDERABLES Final Result Performing Organization Address [facility]/ZIP Co de Phone Number [facility] [phone] [facility] [address] [place] [address] * (ABNORMAL) VITAMIN D 25 HYDROXY (11/10/2024 10:18 AM CDT) VITAMIN D, 25 OH, TOTAL 29(L) 30 - 100 ng/mL [facility] Comment: Vitamin D Status 25-OH Vitamin D: Deficiency: <20 ng/mL Insufficiency: 20 - 29 ng/mL Optimal: > or = 30 ng/mL For 25-OH Vitamin D testing on patients on D2-supplementation and patients for whom quantitation of D2 and D3 fractions is required, the [facility](TM) 25-OH VIT D, (D2,D3), LC/MS/MS is recommended: order code [id number] (patients >2yrs). See Note 1 Note 1 For additional information, please refer to http://education.[employer]faq/FCR826 (This link is being provided for informational/ educational purposes only.) FASTING:UNKNOWN FASTING: UNKNOWN Test Performed at: [facility] [place] [address] Jennifer Smith MD Blood 11/10/2024 10:1 8 AM CDT 11/10/2024 10:18 AM CDT Makenzie Nur DO CHEMISTRY ORDERABLES Final Result Performing Organization Address City/[facility]/ZIP Co de Phone Number [facility] [phone] [facility] [address] [address] [facility] [place] [place] [address] * TSH (11/10/2024 10:18 AM CDT) Pathologist [facility] TSH 1.33 0.40 - 4.50 mIU/L [facility] Comment: FASTING:UNKNOWN FASTING: UNKNOWN Test Performed at: [facility] [address] [facility] [place] [address] Jennifer Smith MD Blood 11/10/2024 10:1 8 AM CDT 11/10/2024 10:18 AM CDT Makenzie Nur DO CHEMISTRY ORDERABLES Final Result [facility] [phone] [facility] [address] [address] [facility] [place] [address] * LIPID PANEL (11/10/2024 10:18 AM CDT) CHOLESTEROL 168 <200 mg/dL [facility] HDL 72 > OR = 50 mg/dL [facility] TRIGLYCERIDE 83 <150 mg/dL [facility] LDL CALCULATED 79 mg/dL (calc) [facility] Comment: Reference range: <100 Desirable range <100 mg/dL for primary prevention; <70 mg/dL for patients with CHD or diabetic patients with > or = 2 CHD risk factors. LDL-C is now calculated using the Tyler-Kurtis calculation, which is a validated novel method providing better accuracy than the Friedewald equation in the estimation of LDL-C. Tyler SS et al. ROXANNE. 2013;310(19): 7781-3250 (http://education.[employer]faq/POD911) CHOL/HDL RATIO 2.3 <5.0 (calc) [facility] NON-HDL CHOLESTEROL 96 <130 mg/dL (calc) [facility] Comment: For patients with diabetes plus 1 major ASCVD risk factor, treating to a non-HDL-C goal of <100 mg/dL (LDL-C of <70 mg/dL) is considered a therapeutic option. Test Performed at: [facility] [address] [place] [address] Jennifer Smith MD Blood 11/10/2024 10:1 8 AM CDT 11/10/2024 10:18 AM CDT Makenzie L Liudmila DO CHEMISTRY ORDERABLES Final Result [facility] [phone] [facility] [employer] [facility] [address] [place] [address] * (ABNORMAL) COMPREHENSIVE METABOLIC PANEL (11/10/2024 10:18 AM CDT) Only the most recent of2 resultswithin the time period is included. GLUCOSE 80 65 - 99 mg/dL [facility] Comment: Fasting reference interval BUN 16 7 - 25 mg/dL [facility] CREATININE 1.14(H) 0.50 - 1.05 mg/dL [facility] GFR 52(L) > OR = 60 mL/min/1.7 3m2 [facility] BUN/CREAT RATIO 14 6 - 22 (calc) [facility] SODIUM 141 135 - 146 mmol/L [facility] POTASSIUM 4.1 3.5 - 5.3 mmol/L [facility] CHLORIDE 108 98 - 110 mmol/L [facility] CO2 27 20 - 32 mmol/L [facility] CALCIUM 9.0 8.6 - 10.4 mg/dL [facility] TOTAL PROTEIN 6.2 6.1 - 8.1 g/dL [facility] ALBUMIN 4.1 3.6 - 5.1 g/dL [facility] GLOBULIN 2.1 1.9 - 3.7 g/dL (calc) [facility] ALBUMIN/GLOBULIN RATIO 2.0 1.0 - 2.5 (calc) [facility] BILIRUBIN TOTAL 0.4 0.2 - 1.2 mg/dL [facility] ALKALINE PHOSPHATASE 73 37 - 153 U/L [facility] AST 10 10 - 35 U/L [facility] ALT 12 6 - 29 U/L [facility] Comment: FASTING:UNKNOWN FASTING: UNKNOWN Test Performed at: [facility] [address] [facility] [place] [address] Jennifer Smith MD Blood 11/10/2024 10:1 8 AM CDT 11/10/2024 10:18 AM CDT Result [facility] Makenzie Nur DO CHEMISTRY ORDERABLES Final Result Performing Organization Address [facility] Co de Phone Number [facility] [phone] [facility] [address] [place] [address] * RI ARTHROCENTESIS ASPIR&/INJ MAJOR JT/BURSA W/O US (10/24/2024 1:00 PM CDT) Narrative [facility] - 10/24/2024 1:00 PM CDT Yari Ramirez FNP 10/24/2024 1:48 PM Large Joint Inject/Drain Date/Time: 10/24/2024 1:00 PM Authorized by: Yari Ramirez FNP Performed by: Yari Ramirez FNP Consent given by: patient Site marked: site marked Timeout: Immediately prior to procedure a time out was called to verify the correct patient, procedure, equipment, program support clerk and site/side marked as required Supporting Documentation Indications: pain Sedation Patient sedated?: patient not sedated Procedure Details Location: shoulder - R glenohumeral Preparation: Patient was prepped and draped in the usual sterile fashion Needle size: 20 G Approach: lateral Patient tolerance: patient tolerated the procedure well with no immediate complications Right shoulder joint injection give with Decadron 4 Mg and Kenalog 40 mg and lidocaine 2% 3 mL September [employer]AURANT GREETER PROCEDURE/MINOR SURGICAL ORDERAB LES Final Result Performing Organization Address [facility] Co de Phone Number [facility] CLIA# [id number] [address] [place] [address] * XR HIP 2 OR 3 VIEWS LT (10/06/2024) Anatomical Region Laterality Modality Lower Extremity Left Other September [employer] DIAGNOSTIC IMAGING ORDERABLES Fi nal Result * XR SHOULDER 2+ VW RIGHT (10/06/2024) Anatomical Region Laterality Modality Upper Extremity Other [facility] DIAGNOSTIC IMAGING ORDERABLES Fi nal Result * MAMMO 3D TAMARA SCREEN BILAT W OR WO CAD (04/05/2024) Anatomical Region Laterality Modality Breast Bilateral Mammography [facility] MAMMO ORDERABLES Final Result * (ABNORMAL) XR DEXA BONE DENSITY AXIAL 1 OR MORE SITES (05/27/2023 3:47 PM MEASURING MACHINE TENDER) T-SCORE HIP (LEFT) 1.90(A) -1.0 - 1.0 INTERFACE SYSTEM T-SCORE SPINE 2.30(A) -1.0 - 1.0 INTER FACE SYSTEM Anatomical Region Laterality Modality Digital Radiogra phy, Mammography 05/27/2023 3:48 PM MEASURING MACHINE TENDER Impressions 05/27/2023 5:08 PM MEASURING MACHINE TENDER IMPRESSION: Bone mineral density values fall within the normal range as above. NOF guidelines recommend consideration of FDA-approved medical therapies in patients with FRAX determined 10-year probabilities of hip/major osteoporosis-related fractures equal or greater than 3%/20% respectively. Consider assessing fracture risk using the FRAX analysis tool for guidance of clinical management available online at www.shef.ac.uk/FRAX/. Enter [employer] for Select DXA and the Femoral Neck BMD value. Narrative 05/27/2023 5:08 PM MEASURING MACHINE TENDER DEXA Evaluation of the Lumbar Spine and Left Proximal Femur Reason For Exam: See Diagnosis. Evaluation of bone mineral density. Diagnosis: Screening for osteoporosis; assisted (current) use of inhaled steroids. The following absorptiometry data were obtained. The quality of this examination is acceptable with regards to count density, processed images, data display and lack of important artifacts (including but not limited to motion and attenuation artifacts). Serial examination number 1. L1-L4 BMD (g/cm2): 1.304 Adult T-score: 2.3 LEFT FEMORAL NECK BMD (g/cm2): 1.019 Adult T-score: 1.5 LEFT TOTAL HIP BMD (g/cm2): 1.17 Adult T-score: 1.9 Procedure Note Yonis Davenport MD - 05/27/2023 DEXA Evaluation of the Lumbar Spine and Left Proximal Femur Reason For Exam: See Diagnosis. Evaluation of bone mineral density. 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 The following absorptiometry data were obtained. The quality of this examination is acceptable with regards to count density, processed images, data display and lack of important artifacts (including but not limited to motion and attenuation artifacts). Serial examination number 1. L1-L4 BMD (g/cm2): 1.304 Adult T-score: 2.3 LEFT FEMORAL NECK BMD (g/cm2): 1.019 Adult T-score: 1.5 LEFT TOTAL HIP BMD (g/cm2): 1.17 Adult T-score: 1.9 IMPRESSION: Bone mineral density values fall within the normal range as above. NOF guidelines recommend consideration of FDA-approved medical therapies in patients with FRAX determined 10-year probabilities of hip/major osteoporosis-related fractures equal or greater than 3%/20% respectively. Consider assessing fracture risk using the FRAX analysis tool for guidance of clinical management available online at www.shef.ac.uk/FRAX/. Enter [employer] for Select DXA and the Femoral Neck BMD value. Nevaeh Rao REST[employer] GRE[employer]ER DIAGNOSTIC IMAGING ORDERAB LES Final Result * COLON CANCER SCREEN, STOOL DNA (08/04/2022 4:30 PM MEASURING MACHINE TENDER) COLOGUARD RESULT Negative Negative [facility] Comment: NEGATIVE TEST RESULT. A negative Cologuard result indicates a low likelihood that a colorectal cancer (CRC) or advanced adenoma (adenomatous polyps with more advanced pre-malignant features) is present. The chance that a person with a negative Cologuard test has a colorectal cancer is less than 1 in 1500 (negative predictive value >99.9%) or has an advanced adenoma is less than 5.3% (negative predictive value 94.7%). These data are based on a prospective cross-sectional study of 10,000 individuals at average risk for colorectal cancer who were screened with both Cologuard and colonoscopy. (Leigh Ann Nails al, N Engl J Med 2014;370(14):6093-8695) The normal value (reference range) for this assay is negative. COLOGUARD RE-SCREENING RECOMMENDATION: Periodic colorectal cancer screening is an important part of preventive healthcare for asymptomatic individuals at average risk for colorectal cancer. Following a negative Cologuard result, the [place] [employer] Society and U.S. Multi-Society Task Force screening guidelines recommend a Cologuard re-screening interval of 3 years. References: [place] [employer] Guideline for Colorectal Cancer Screening: https://www.cancer.org/cancer/bjmyu-shexzs-ujzsof/uulzoiblp-nbhjgbwep-fqwkelt/ac s-rec ommendations.html.; Jorge DK, Maryam CHAVES, Riaz ColeK, Colorectal Cancer Screening: Recommendations for Physicians and Patients from the U.S. Multi-Society Task Force on Colorectal Cancer Screening , Am J Gastroenterology 2017; 112:1938-5517. TEST DESCRIPTION: Composite algorithmic analysis of stool DNA-biomarkers with hemoglobin immunoassay. Quantitative values of individual biomarkers are not reportable and are not associated with individual biomarker result reference ranges. Cologuard is intended for colorectal cancer screening of adults of either sex, 45 years or older, who are at average-risk for colorectal cancer (CRC). Cologuard has been approved for use by the U.S. FDA. The performance of Cologuard was established in a cross sectional study of average-risk adults aged 50-84. Cologuard performance in patients ages 45 to 49 years was estimated by sub-group analysis of near-age groups. Colonoscopies performed for a positive result may find as the most clinically significant lesion: colorectal cancer [4.0%], advanced adenoma (including sessile serrated polyps greater than or equal to 1cm diameter) [20%] or non- advanced adenoma [31%]; or no colorectal neoplasia [45%]. These estimates are derived from a prospective cross-sectional screening study of 10,000 individuals at average risk for colorectal cancer who were screened with both Cologuard and colonoscopy. (Leigh Ann Nails al, N Engl J Med 2014;370(14):2938-1490.) Cologuard may produce a false negative or false positive result (no colorectal cancer or precancerous polyp present at colonoscopy follow up). A negative Cologuard test result does not guarantee the absence of CRC or advanced adenoma (pre-cancer). The current Cologuard screening interval is every 3 years. ([place] [employer] and U.S. Multi-Society Task Force). Cologuard performance data in a 10,000 patient pivotal study using colonoscopy as the reference method can be accessed at the following location: www.[employer]/results. Additional description of the Cologuard test process, warnings and precautions can be found at www.cologuard.com. Stool STOOL SPECIMEN / Unknown 08/04/2022 4:30 PM MEASURING MACHINE TENDER 08/05/2022 5:39 PM MEASURING MACHINE TENDER Nevaeh Rao RESTAURANT GREETER BODY FLUIDS AND STOOLS Fin al Result [facility] CLIA # [id number] [address] , [address] [place] [address] from Last 3 Months or Most Recently Relevant to Health Maintenance Insurance [facility] [id number] [facility] DUAL COMPLETE O [facility] [id number] Care Teams Computer Equipment Installer Relationship Specialty Start Date End Date Makenzie Nur DO [address] [place] [address] PCP - General Family Practice 09/15/17
[2024-12-05 01:00] VITALS: BP 97/63; PULSE 88; RESP 16; O2SAT 95
[2024-12-05 02:08] VITALS: BP 116/71; PULSE 87; RESP 16; O2SAT 98
[2024-12-05] MEDS: morphine 4 mg/mL SDV 1 mL 2 MG IVP (02:28)
[2024-12-05] MEDS: orphenadrine 30 mg/mL Inj 2 mL 60 MG IVP (02:29)
[2024-12-05 02:45] LABS: Basophils % 0.2 %; Eosinophils # 0.1 10^3/uL (0.0-0.8); Eosinophils % 1.7 %; Lymphocytes # 0.7 10^3/uL (0.8-4.8); Lymphocytes % 10.2 %; Mean Corpuscular HGB Conc 31.6 g/dL (30-55); Mean Corpuscular Hemoglobin 29.9 pg (27-33); Mean Corpuscular Volume 94.6 fl (85-98); Mean Platelet Volume 8.7 fL (7.4-10.4); Monocytes # 0.8 10^3/uL (0.2-0.9); Neutrophils # 5.04 10^3/uL (1.8-7.7); Neutrophils % 75.6 %; Nucleated Red Blood Cells % 0 %; Platelet Count 199 10^3/cmm (157-399); Red Blood Count 3.91 10^6/uL (3.85-5.65); Red Cell Distribution Width 13.9 % (12.1-15.1); White Blood Count 6.66 10^3/uL (3.29-11.43)
[2024-12-05 03:01] LABS: Lactic Sepsis W/Reflex 0.8 mmol/L (0.5-2.2)
[2024-12-05 03:10] LABS: Alanine Aminotransferase 16 U/L (0-33); Albumin Level 3.5 g/dL (3.5-5.2); Alkaline Phosphatase 81 U/L (35-105); Anion Gap 13.9 (5-19); Aspartate Amino Transferase 12 U/L (0-32); Blood Urea Nitrogen 19 mg/dL (8-23); C Reactive Protein 52.9 mg/L (0.0-4.9); Calcium 9.2 mg/dL (8.5-10.5); Carbon Dioxide 25 mmol/L (22-29); Chloride 106 mmol/L (98-107); Globulin 2.7 g/dL (1.3-4.6); Glomerular Filtration Rate 37.3 mL/min (90-130); Glucose 104 mg/dL (65-115); Osmolality Calculated 295 mOsm/kg (285-295); Potassium 3.9 mmol/L (3.5-5.1); Sodium 141 mmol/L (136-145); Total Bilirubin 0.4 mg/dL (0.15-1.2); Total Protein 6.2 g/dL (6.6-8.7)
--- NOTE | 2024-12-05 03:15 | CTR_ITS ---
PROCEDURE INFORMATION: Exam: CT Abdomen And Pelvis With Contrast Exam date and time: 12/05/2024 3:30 AM Age: 69 years old Clinical indication: Abdominal pain; Prior surgery; Surgery date: 6+ months; Surgery type: Gb. Csection; C/O left flank and low back pain. History of ckd. ; Additional info: Left flank and back pain TECHNIQUE: Imaging protocol: Computed tomography of the abdomen and pelvis with contrast. Radiation optimization: All CT scans at this facility use at least one of these dose optimization techniques: automated exposure control; mA and/or kV adjustment per patient size (includes targeted exams where dose is matched to clinical indication); or iterative reconstruction. Contrast material: OMNI 350; Contrast volume: 75 ml; Contrast route: INTRAVENOUS (IV); COMPARISON: CT kidney stone [id number] 09/25/2024 1:53 PM RADIATION DOSE METRICS: Total DLP (mGy-cm): 849.43 FINDINGS: Diaphragm: Small hiatal hernia. Liver: Hepatic granulomas. Hepatic segment 4 hypodense lesion likely representing a simple cyst. Gallbladder and biliary ducts: Cholecystectomy. Mild dilation of the CBD likely secondary to postsurgical changes. Pancreas: Normal. No ductal dilation. Spleen: Splenic granulomas. Adrenal glands: Unremarkable. Kidneys and ureters: Severe left renal atrophy. Right upper pole cortical renal scarring. No hydronephrosis. Stomach and bowel: Colonic diverticulosis without diverticulitis. No mechanical obstruction. No mucosal thickening. Appendix: Appendix not definitely seen. No right lower quadrant inflammation identified. Intraperitoneal space: No free air. No fluid collection. Vasculature: Mild atherosclerotic changes of the aorta and its major branches. Lymph nodes: No enlarged lymph nodes. Urinary bladder: Unremarkable as visualized. Reproductive: Unremarkable as visualized. Bones/joints: Mild multilevel spondylosis. Soft tissues: Small fat containing infraumbilical hernia. CT/CT abdomen pelvis w con* [id number] IMPRESSION: No acute abdominopelvic abnormality.
[2024-12-05 03:22] VITALS: RESP 18
[2024-12-05] MEDS: morphine 4 mg/mL SDV 1 mL IVP ×2 (03:22→05:18)
--- NOTE | 2024-12-05 03:29 | W.ED.BACK ---
HPI - Back Pain/Injury General: Chief Complaint: Back Pain/Injury Stated Complaint: back pain Time Seen by Provider: 12/05/24 01:44 History of Present Illness: 69-year-old female with significant left-sided flank pain, lateral to the midline, for the past day or so. She had been seen prior for this, and it had improved to some degree. She does complain of chronic pain and spasm to the area. She states that she has no kidney on that side. She denies fever. She denies vomiting. She denies diarrhea. She says she has had a cough, which makes the pain worse on that side. She complains of muscle spasms to the area. Related Data Home Medications ?Medication ?Instructions ?Recorded ?Confirmed fluticasone fur. 100 mcg-umeclid 1 inh inhalation DAILY 11/14/19 09/25/24 62.5 mcg-vilant 25 mcg inhalat.powder (Trelegy Ellipta) irbesartan 150 mg tablet 150 mg PO QPM 11/14/19 09/25/24 levothyroxine 75 mcg tablet 225 mcg PO QAM 11/14/19 09/25/24 (Synthroid) simvastatin 20 mg tablet 20 mg PO QPM 11/14/19 09/25/24 brinzolamide 1 % eye 1 drop ophthalmic (eye) TID 11/24/19 09/25/24 drops,suspension (Azopt) magnesium 250 mg tablet 250 mg PO DAILY 01/10/21 09/25/24 flunisolide 25 mcg (0.025 %) nasal 1 spray intranasal BID PRN 10/08/21 09/25/24 spray allergies/congestion zonisamide 100 mg/5 mL oral 25 mg PO QPM 09/20/24 09/25/24 suspension (Zonisade) famotidine 20 mg tablet 20 mg PO BID 09/25/24 09/25/24 hydrocortisone 2.5 % topical cream 1 applic topical BID PRN Skin 09/25/24 09/25/24 Irritation pantoprazole 40 mg tablet,delayed 40 mg PO DAILY 09/25/24 09/25/24 release potassium citrate 99 mg capsule 99 mg PO DAILY 09/25/24 09/25/24 tacrolimus 0.1 % topical ointment 1 applic topical BID PRN 09/25/24 09/25/24 red/irritated rash Previous Rx's ?Medication ?Instructions ?Recorded carvedilol 6.25 mg tablet 6.25 mg PO BID #180 tabs 11/01/24 cefdinir 300 mg capsule 300 mg PO BID #14 caps 12/05/24 oxycodone-acetaminophen 7.5 mg-325 1 tab PO Q6H PRN pain #10 tabs 12/05/24 mg tablet (Percocet) Allergies Allergy/AdvReac Type Severity Reaction Status Date / Time Alpha-Gal Allergy Intermediate Unknown Verified 12/04/24 23:19 ([id number],3-Gala [facility] ED PFSH: Medical History Hypertension Lichen sclerosus Chronic kidney disease Obstructive sleep apnea Hypertension COPD (chronic obstructive pulmonary disease) Hyperlipidemia Bilateral carotid artery stenosis GERD (gastroesophageal reflux disease) Sleep apnea Kidney stones Hypersomnia Seizures Glaucoma Morbid obesity Hypothyroid Surgical History History of History of dental surgery Hx of cholecystectomy Status post glaucoma surgery History of rotator cuff surgery Family History Father CAD (coronary artery disease) Dementia Diabetes Hyperlipidemia Hypertension Lung disease Mother Cancer Brother Chronic kidney disease (CKD) Sister Chronic kidney disease (CKD) Denies family history of Clotting disorder Suicide Anesthesia complication Bleeding disorder Stroke Social History Smoking and tobacco/nicotine status: never used tobacco/nicotine Alcohol intake: never Substance/Drug Use: never Physical Exam Const: GENERAL APPEARANCE: cooperative and frail appearing (Mildly for age) HENMT: COMMON NORMALS: normocephalic, atraumatic and Normal external nose present HEAD & SCALP: normocephalic and atraumatic FACE & SINUS: normal facial exam and face symmetric NOSE: Normal external nose present Eye: COMMON NORMALS: Equal, round and reactive pupils present and EOMs intact bilaterally PUPIL: Yes Equal, round and reactive pupils present Neck/C-Spine: GENERAL: Yes trachea midline Chest: CHEST: Yes Symmetrical chest wall rise Resp: COMMON NORMALS: normal respiratory effort, No retractions, No use of accessory muscles and clear to auscultation bilaterally AUSCULTATION: clear to auscultation bilaterally Cardio: COMMON NORMALS: regular rate and regular rhythm RATE: regular rate RHYTHM: regular rhythm GI: COMMON NORMALS: Normal to inspection, nondistended, normoactive bowel sounds present : OTHER: Left-sided flank tenderness, laterally. This is inferior to rib cage, and above the lateral iliac crest. Minimal belly tenderness. No midline lumbar tenderness. Neuro: JOSESITO COMA SCALE: document GCS findings Josesito coma scale eye opening: Spontaneous Josesito coma scale verbal response: Orientated Josesito coma scale motor response: Obey commands [place] coma scale total score: 15 SENSORY EXAM: Yes extremities (intact) Psych: COMMON NORMALS: speech normal SPEECH: Yes normal speech Skin: COMMON NORMALS: no rashes or lesions noted GENERAL SKIN EXAM: no rashes or lesions noted Course Vital Signs: Vital signs: Vital Signs Temperature 97.9 F 12/04/24 23:14 Pulse Rate 84 12/05/24 05:42 Respiratory Rate 16 12/05/24 05:42 Blood Pressure 148/78 12/05/24 05:42 Pulse Oximetry 92 12/05/24 05:42 Oxygen Delivery Me thod Room Air 12/05/24 02:08 MDM - Back Pain/Injury Medical Decision Making The patient is quite tender, and despite pain medication and orphenadrine, significant pain with movement to try to get up to urinate. Her creatinine is 1.4. CBC is normal. Other laboratory is not remarkable, save a CRP of 53. Her lactic acid is 0.8. CT is pending CT reveals no acute abdominal pelvic abnormality. No compression fracture, etc. She does have a mild urinary tract infection on urinalysis testing. Pain is nonradicular. No red flag signs or symptoms. She is given IV Rocephin here. She will be prescribed cefdinir, with Percocet as needed. To return for fever, vomiting, other concerning symptoms. Labs 12/05/24 02:38 12/05/24 02:38 Radiology Impressions Abdomen/Pelvis CT 12/05/24 03:15 IMPRESSION: No acute abdominopelvic abnormality. Laboratory Results WBC 6.66 10^3/uL (3.29-11.43) 12/05/24 02:38 RBC 3.91 10^6/uL (3.85-5.65) 12/05/24 02:38 Hgb 11.70 g/dL (11.27-16.99) 12/05/24 02:38 Hct 37.0 % (36-47) 12/05/24 02:38 MCV 94.6 fl (85-98) 12/05/24 02:38 MCH 29.9 pg (27-33) 12/05/24 02:38 MCHC 31.6 g/dL (30-55) 12/05/24 02:38 RDW 13.9 % (12.1-15.1) 12/05/24 02:38 Plt Count 199 10^3/cmm (157-399) 12/05/24 02:38 MPV 8.7 fL (7.4-10.4) 12/05/24 02:38 Neut % (Auto) 75.6 % 12/05/24 02:38 Lymph % (Auto) 10.2 % 12/05/24 02:38 [place] % (Auto) 12.0 % 12/05/24 02:38 Eos % (Auto) 1.7 % 12/05/24 02:38 Baso % (Auto) 0.2 % 12/05/24 02:38 Neut # (Auto) 5.04 10^3/uL (1.8-7.7) 12/05/24 02:38 Lymph # (Auto) 0.7 10^3/uL (0.8-4.8) L 12/05/24 02:38 [place] # (Auto) 0.8 10^3/uL (0.2-0.9) 12/05/24 02:38 Eos # (Auto) 0.1 10^3/uL (0.0-0.8) 12/05/24 02:38 Baso # (Auto) 0.0 10^3/uL (0.0-0.1) 12/05/24 02:38 Nucleated RBC % (auto) 0 % 12/05/24 02:38 Nucleated RBCs # 0.0 /100WBC 12/05/24 02:38 Sodium 141 mmol/L (136-145) 12/05/24 02:38 Potassium 3.9 mmol/L (3.5-5.1) 12/05/24 02:38 Chloride 106 mmol/L (98-107) 12/05/24 02:38 Carbon Dioxide 25 mmol/L (22-29) 12/05/24 02:38 Anion Gap 13.9 (5-19) 12/05/24 02:38 BUN 19 mg/dL (8-23) 12/05/24 02:38 Creatinine 1.4 mg/dL (0.5-0.9) H 12/05/24 02:38 GFR Calculation 37.3 mL/min (90-130) L 12/05/24 02:38 Glucose 104 mg/dL (65-115) 12/05/24 02:38 Calculated Osmolality 295 mOsm/kg (285-295) 12/05/24 02:38 Lactic Acid 0.8 mmol/L (0.5-2.2) 12/05/24 02:38 Calcium 9.2 mg/dL (8.5-10.5) 12/05/24 02:38 Total Bilirubin 0.4 mg/dL (0.15-1.2) 12/05/24 02:38 AST 12 U/L (0-32) 12/05/24 02:38 ALT 16 U/L (0-33) 12/05/24 02:38 Alkaline Phosphatase 81 U/L (35-105) 12/05/24 02:38 C-Reactive Protein 52.9 mg/L (0.0-4.9) H 12/05/24 02:38 Total Protein 6.2 g/dL (6.6-8.7) L 12/05/24 02:38 Albumin 3.5 g/dL (3.5-5.2) 12/05/24 02:38 Globulin 2.7 g/dL (1.3-4.6) 12/05/24 02:38 Urine Color Yellow (Yellow) 12/05/24 04:24 Urine Appearance Clear (CLEAR) 12/05/24 04:24 Urine pH 6.0 (5-7) 12/05/24 04:24 Ur Specific E[place]ar 1.057 (1.005-1.030) H 12/05/24 04:24 Urine Protein Trace (Negative) A 12/05/24 04:24 Urine Glucose (UA) Negative (Normal) 12/05/24 04:24 Urine Ketones 1+ (Negative) H 12/05/24 04:24 Urine Blood Negative (Negative) 12/05/24 04:24 Urine Nitrate Negative (Negative) 12/05/24 04:24 Urine Bilirubin Negative (Negative) 12/05/24 04:24 Urine Urobilinogen 1.0 mg/dL (Negative) 12/05/24 04:24 Ur Leukocyte Esterase Trace (Negative) A 12/05/24 04:24 Urine RBC 0-2 /hpf (0-2) 12/05/24 04:24 Urine WBC 11-20 /hpf (0-5) H 12/05/24 04:24 Ur Squamous Epith Cells 6-10 /hpf (0-5) 12/05/24 04:24 Amorphous Sediment Not Reportable 12/05/24 04:24 Urine Bacteria 1+ /hpf (NONE) H 12/05/24 04:24 Hyaline Casts 5.77 /lpf 12/05/24 04:24 All radiology interpretation(s) finalized by discharge Discharge Plan Discharge Patient Disposition: Home Clinical Impression: Acute flank pain, Acute UTI Condition: Stable Prescriptions: New oxycodone-acetaminophen [Percocet] 7.5-325 mg tablet 1 tab PO Q6H PRN (Reason: pain) Qty: 10 0RF cefdinir 300 mg capsule 300 mg PO BID Qty: 14 0RF No Action Azopt 1 % drops,suspension 1 drop ophthalmic (eye) TID irbesartan 150 mg tablet 150 mg PO QPM simvastatin 20 mg tablet 20 mg PO QPM levothyroxine [Synthroid] 75 mcg tablet 225 mcg PO QAM Trelegy Ellipta 100-62.5-25 mcg blister with device 1 inh INHALATION DAILY magnesium 250 mg tablet 250 mg PO DAILY flunisolide 25 mcg (0.025 %) spray,non-aerosol 1 spray intranasal BID PRN (Reason: allergies/congestion) Zonisade 100 mg/5 mL suspension 25 mg PO QPM carvedilol 6.25 mg tablet 6.25 mg PO BID Qty: 180 1RF Rx Instructions: must administer with a meal/food potassium citrate 99 mg Capsule 99 mg PO DAILY famotidine 20 mg tablet 20 mg PO BID pantoprazole 40 mg tablet,delayed release (DR/EC) 40 mg PO DAILY tacrolimus 0.1 % ointment 1 applic TOPICAL BID PRN (Reason: red/irritated rash) hydrocortisone 2.5 % cream 1 applic TOPICAL BID PRN (Reason: Skin Irritation) Discharge Orders: Discharge ED (Routine); Ordered 12/05/24 Ordered By: Jem Millard Referrals: Makenzie Nur DO [Primary Care Provider, Family Practice] - 1-3 days Patient Instructions: Flank Pain (ED), Urinary Tract Infection in Older Adults (ED), Opioid Safety, Pain Management, Patient Portal & Seema Instructions Activity Restrictions/Additional Instructions: Stay hydrated. Antibiotics as directed. Pain medication for severe pain. Call your doctor later this morning, for an outpatient appointment. You should have your urine retested to ensure you are clearing the infection in 48 to 72 hours take pain medication sparingly. Use Tylenol instead of pain medication when able. Print Language: [place] Citizen Coding Level of Care Code ED Hide Handler for Carrol Stoddard
[2024-12-05] MEDS: iohexol 350 mg/mL 500 mL Btl (per mL) IV (03:34)
[2024-12-05 04:32] LABS: Bilirubin Urine Negative (Negative); Blood Urine Negative (Negative); Glucose Urine UA Negative (Normal); Ketones Urine 1+ (Negative); Leukocyte Esterase Urine Trace (Negative); Nitrate Urine Negative (Negative); Protein Urine Trace (Negative); Urine Appearance Clear (CLEAR); Urine Color Yellow (Yellow)
[2024-12-05 04:37] LABS: Add Urine Microscopic? YES; Bacteria Urine 1+ /hpf; Hyaline Casts Urine 5.77 /lpf; RBC Urine 0-2 /hpf (0-2)
[2024-12-05 04:43] LABS: Specific Gravity, Urine 1.057 (1.005-1.030)
[2024-12-05] MEDS: oxyCODONE-APAP 5-325 mg Tablet 1 TAB PO (05:18)
[2024-12-05] MEDS: cefTRIAXone 1,000 mg SDV 1000 MG IVP (05:18)
[2024-12-05] MEDS: ondansetron 2 mg/ML SDV 2 mL 4 MG IVP (05:18)
[2024-12-05 05:42] VITALS: BP 148/78; PULSE 84; RESP 16; O2SAT 92
== END 2024-12-05 05:43 | disposition home or self-care (01) ==
PROVIDERS: Emergency Provider Emergency Medicine; PCP Family Medicine
DX: R10.9 Unspecified abdominal pain (principal); N39.0 Urinary tract infection, site not specified; J44.9 Chronic obstructive pulmonary disease, unspecified; I12.9 Hypertensive chronic kidney disease with stage 1 through stage 4 chronic kidney disease, or unspecified chronic kidney disease; N18.9 Chronic kidney disease, unspecified
CPT/HCPCS: 36415; 74177; 80053; 81001; 83605; 85025; 86140; 96374; 96375; 96376; 99285; J0696; J2270; J2360; J2405; J9999

== ENCOUNTER → 2024-12-14 14:10 | Outpatient (BNVA) | payer OTHER, MEDICAID, SELFPAY | PROVIDERS: PCP Family Medicine; Visit Provider Internal Medicine Cardiovascular Disease | DX: I65.23 Occlusion and stenosis of bilateral carotid arteries (principal); E78.2 Mixed hyperlipidemia; G47.33 Obstructive sleep apnea (adult) (pediatric); I12.9 Hypertensive chronic kidney disease with stage 1 through stage 4 chronic kidney disease, or unspecified chronic kidney disease; N18.9 Chronic kidney disease, unspecified | CPT/HCPCS: 99214 ==

== ENCOUNTER 2025-01-05 11:08 | Outpatient (CLI) | payer OTHER, MEDICAID, SELFPAY ==
[2025-01-05 12:46] LABS: Hematocrit 43.5 % (36-47); Hemoglobin 13.70 g/dL (11.27-16.99); Mean Corpuscular HGB Conc 31.5 g/dL (30-55); Mean Corpuscular Hemoglobin 30.4 pg (27-33); Mean Corpuscular Volume 96.5 fl (85-98); Nucleated Red Blood Cells % 0 %; Platelet Count 255 10^3/cmm (157-399); Red Blood Count 4.51 10^6/uL (3.85-5.65); White Blood Count 6.29 10^3/uL (3.29-11.43)
[2025-01-05 13:06] LABS: Creatinine Urine, Random 74 mg/dL (28-217); Microalbum Creatinine Ratio Ur 14 mg/dL (0-20)
[2025-01-05 13:13] LABS: Calcium 9.1 mg/dL (8.5-10.5)
== END 2025-01-05 11:09 | disposition home or self-care (01) ==
PROVIDERS: PCP Family Medicine; Visit Provider Registered Nurse
DX: N18.32 Chronic kidney disease, stage 3b (principal); E55.9 Vitamin D deficiency, unspecified
CPT/HCPCS: 36415; 82044; 82306; 82310; 83970; 85025

== ENCOUNTER 2025-01-09 10:52 | Outpatient (CLI) | payer OTHER, MEDICAID, SELFPAY ==
[2025-01-09 12:39] LABS: Hematocrit 40.7 % (36-47); Hemoglobin 12.50 g/dL (11.27-16.99); Mean Corpuscular HGB Conc 30.7 g/dL (30-55); Mean Corpuscular Hemoglobin 29.5 pg (27-33); Mean Corpuscular Volume 96.0 fl (85-98); Nucleated Red Blood Cells % 0 %; Platelet Count 259 10^3/cmm (157-399); Red Blood Count 4.24 10^6/uL (3.85-5.65); White Blood Count 5.71 10^3/uL (3.29-11.43)
[2025-01-09 13:09] LABS: Creatinine Urine, Random 162 mg/dL (28-217); Microalbum Creatinine Ratio Ur 25 mg/dL (0-20)
[2025-01-09 13:13] LABS: Calcium 9.3 mg/dL (8.5-10.5)
[2025-01-09 13:23] LABS: Albumin Level 3.9 g/dL (3.5-5.2); Anion Gap 12.5 (5-19); Blood Urea Nitrogen 16 mg/dL (8-23); Calcium 9.3 mg/dL (8.5-10.5); Carbon Dioxide 26 mmol/L (22-29); Chloride 107 mmol/L (98-107); Glucose 94 mg/dL (65-115); Potassium 4.5 mmol/L (3.5-5.1); Sodium 141 mmol/L (136-145)
== END 2025-01-09 10:53 | disposition home or self-care (01) ==
LOC: LAB 10:57
PROVIDERS: PCP Family Medicine; Visit Provider Family Medicine
DX: E55.9 Vitamin D deficiency, unspecified (principal); N18.32 Chronic kidney disease, stage 3b
CPT/HCPCS: 36415; 80069; 82044; 82306; 82310; 83970; 85025

== ENCOUNTER 2025-01-19 14:03 | Outpatient (CLI) | payer OTHER, MEDICAID, SELFPAY ==
--- NOTE | 2025-01-19 14:09 | US_ITS ---
WS: [id number] RENAL ULTRASOUND HISTORY: STAGE 3B CHRONIC KIDNEY DZ COMPARISON: None available. TECHNIQUE: 2-D and color Doppler imaging of the kidney submitted. Right kidney: 8.8 cm x 4.2 cm x 6.2 cm. Cortex: 1.3 cm Normal echogenicity with no hydronephrosis or mass. Left kidney: LEFT kidney is not identified. Severe atrophy was noted on the prior CT. Aorta: Normal. Urinary Bladder: Normal distention. US/US renal BI* [id number] IMPRESSION: 1. Severe atrophy LEFT kidney. LEFT kidney is not identified. 2. Low normal size RIGHT kidney. Kidney was normal size on the CT from 12/06/19 25. Length of the kidney was 11.7 cm at that time. Kidney probably remains norm al size but is incompletely visualized by ultrasound due to adjacent bowel gas.
== END 2025-01-19 14:04 | disposition home or self-care (01) ==
LOC: RAD 14:04
PROVIDERS: PCP Family Medicine; Visit Provider Registered Nurse
DX: N18.32 Chronic kidney disease, stage 3b (principal); N26.1 Atrophy of kidney (terminal)
CPT/HCPCS: 76770

== ENCOUNTER 2025-01-29 07:46 | Emergency (ER) | payer OTHER, MEDICAID, SELFPAY ==
[2025-01-29 07:50] VITALS: BP 135/71; PULSE 75; RESP 16; TEMP 36.4; O2SAT 99; BMI 37.0
--- OUTSIDE RECORDS SUMMARY | 2025-01-29 07:54 | XMS_ITS | Encounter Summary ---
Author Organization [facility], [facility] Address [address] [facility] [address] [place] [address] Phone Care Team Providers Care Superintendent Job Name Role Phone Makenzie Nur DO Primary Care Provider [phone] Encounter Details Date Type Department Care Team (Late st Contact Info) Description 07/22/2019 Orders Only [facility], Formerly [facility], [facility] [place] [address] Pete Gonzalez MD [address] [address] Chronic kidney disease stage 3 (HCC) Social History Tobacco Use Types Packs/Day Years Used Date Smoking Tobacco: Never Smokeless Tobacco: Never Alcohol Use Standard Drinks/Week Comments Not Currently 0 (1 standard drink = 0.6 oz pur e alcohol) Comments Unknown Sex and Gender Information Value Date Recorded Sex Assigned at Not on file Legal Sex Female 11:49 AM EDT Gender Identity Not on file Sexual Orientation Not on file documented as of this encounter Plan of Treatment Upcoming Encounters Date Type Department Care Team (Late st Contact Info) Description 04/17/2025 11:30 AM CONFERENCE ORGANIZER Office Visit [facility], [facility], [facility] [place] [address] Divya Hobson NP [address] [facility] [address] [place] [address] documented as of this encounter Procedures Procedure Name Priority Date/Time Associated Diagnosis Comments URINE ALBUMIN / CREATININE RATIO Routine 07/25/2019 12:50 PM CONFERENCE ORGANIZER Chronic kidney disease stage 3 (HCC) CBC Routine 07/25/2019 12:50 PM CONFERENCE ORGANIZER Chronic kidney disease stage 3 (HCC) PTH, INTACT Routine 07/25/2019 12:50 PM CONFERENCE ORGANIZER Chronic kidney disease stage 3 (HCC) RENAL FUNCTION PANEL Routine 07/25/2019 12:50 PM CONFERENCE ORGANIZER Chronic kidney disease stage 3 (HCC) documented in this encounter Results * PTH, intact (07/25/2019 12:50 PM CONFERENCE ORGANIZER) Pathologist [facility] Parathyroid Hormone, Intact 51.0 pg/mL Blood specimen (specimen) 07/25/2019 12:50 PM CONFERENCE ORGANIZER Octavia Cano MA - 07/25/2019 3:56 PM [facility] [address] [place] [id number] Pete Gonzalez MD LAB BLOOD ORDERABLES Fi nal Result * (ABNORMAL) Urine albumin / creatinine ratio (07/25/2019 12:50 PM CONFERENCE ORGANIZER) [facility] Microalbumin 2 Creatinine, Urine 319 mg/dL Microalb/Creat Ratio 6(A) 30 - 300 mg/g Creat Urine specimen (specimen) 07/25/2019 12:50 PM CONFERENCE ORGANIZER Octavia Cano MA - 07/25/2019 3:56 PM [facility] [address] [place], [place] [address] Pete Gonzalez MD LAB URINE ORDERABLES Fi nal Result * CBC (07/25/2019 12:50 PM CONFERENCE ORGANIZER) [facility] WBC 6.1 K/uL Red Blood Cell Count 4.84 Hemoglobin 14.1 g/dL Hematocrit 45.1 % MCV 93.2 MCH 29.1 MCHC 31.3 RDW 14.3 Platelet Count 324 MPV 9.1 Absolute Neutrophils 4.2 Absolute Lymphocytes 1.3 Absolute Monocytes 0.4 Absolute Eosinophils 0.1 Absolute Basophils 0.0 Neutrophils 68.9 K/uL Lymphocytes 22.0 Monocytes 7.2 Eosinophils 1.0 Basophils 0.2 Blood specimen (specimen) 07/25/2019 12:50 PM CONFERENCE ORGANIZER Octavia Cano MA - 07/25/2019 3:56 PM CONFERENCE ORGANIZER [facility] [address] [place], [place] [address] Pete Gonzalez MD LAB BLOOD ORDERABLES Fi nal Result * (ABNORMAL) Renal function panel (07/25/2019 12:50 PM CONFERENCE ORGANIZER) Albumin 4.4 3.5 - 5.0 g/dL BUN 21 4 - 21 mg/dL Calcium 10.6 8.7 - 10.7 mg/dL Chloride 102 99 - 108 Bicarbonate (CO2) 24 22 - 30 mmol/L Creatinine 1.40(A) 0.50 - 1.10 mg/dL eGFR 58.0 mL/min/1.7 3m*2 eGFR Non- 46.0 mL/min/1.7 3m*2 Glucose 126 Phosphorus, Serum 3.8 Potassium 4.3 3.4 - 5.5 Sodium 139 137 - 147 Blood specimen (specimen) 07/25/2019 12:50 PM CONFERENCE ORGANIZER Octavia Cano MA - 07/25/2019 1:00 PM CONFERENCE ORGANIZER [facility] [address] [place], [place] [address] Pete Gonzalez MD LAB BLOOD ORDERABLES Fi nal Result documented in this encounter Visit Diagnoses Diagnosis Chronic kidney disease stage 3 (HCC) documented in this encounter Care Teams Superintendent Job Relationship Specialty Start Date End Date Makenzie Nur DO [address] [place] [address] PCP - General Family Medicine 05/17/24 documented as of this encounter
--- OUTSIDE RECORDS SUMMARY | 2025-01-29 07:54 | XMS_ITS | Encounter Summary ---
Author Organization [facility] [employer], [facility] Address [address] [facility] [address] [place] [address] Phone Care Team Providers Care Rn Family Name Role Phone Makenzie Nur DO Primary Care Provider [phone] Encounter Details Date Type Department Care Team (Late st Contact Info) Description 09/30/2018 Orders Only [facility] [employer] [address] [facility] [address] [place] [address] Chronic kidney disease, stage 3 (moderate) Social History Tobacco Use Types Packs/Day Years Used Date Smoking Tobacco: Never Assessed Comments Unknown Sex and Gender Information Value Date Recorded Sex Assigned at Not on file Legal Sex Female 11:49 AM EDT Gender Identity Not on file Sexual Orientation Not on file documented as of this encounter Plan of Treatment Upcoming Encounters Date Type Department Care Team (Late st Contact Info) Description 04/17/2025 11:30 AM FOOD AND BEVERAGE CONTROLLER Office Visit [facility] [place], [facility] [address] [place] [address] Divya Hobson NP [address] [facility] [address] [place] [address] documented as of this encounter Visit Diagnoses Diagnosis Chronic kidney disease, stage 3 (moderate) documented in this encounter Care Teams Rn Family Relationship Specialty Start Date End Date Makenzie Nur DO [address] [place] [phone] PCP - General Family Medicine 05/17/24 documented as of this encounter
--- OUTSIDE RECORDS SUMMARY | 2025-01-29 07:54 | XMS_ITS | Clinical Summary ---
Author Organization [facility], [facility] Address [address] [place] [address] Phone Care Team Providers Care Wool Buyer Name Role Phone Makenzie Nur Primary Care Provider [phone] Allergies Active Allergy Reactions Criticality Noted Date Comments Amoxicillin-Pot Clavulanate Anxiety,Nausea,Vomiting Low 11/04/2018 Sulfa Antibiotics Hives 11/04/2018 Medications * This document contains information received from the source organization and may not represent a complete record from that organization. simvastatin (ZOCOR) 40 MG tablet Take 40 mg by mouth 1 (one) time each day Active irbesartan (AVAPRO) 150 MG tablet Take 150 mg by mouth every night Active zonisamide (ZONEGRAN) 100 MG capsule Take 400 mg by mouth 1 (one) time each day Active omeprazole (PriLOSEC) [address] capsule Take 40 mg by mouth 1 (one) time each day Do not crush or chew. Active acetaminophen (TYLENOL) 500 MG tablet Take by mouth every 6 (six) hours if needed for mild pain Active levothyroxine (SYNTHROID, LEVOTHROID) 75 MCG tablet Take 75 mcg by mouth 1 (one) time each day Active loratadine (CLARITIN) 10 MG tablet Take 10 mg by mouth 1 (one) time each day Active Potassium 99 MG tablet Take 1 tablet by mouth 1 (one) time each day Active Fluticasone-Um eclidin-Vilant 100-62.5-25 MCG/INH aerosol powder Inhale 1 puff 1 (one) time each day if needed Active latanoprost (XALATAN) 0.005 % ophthalmic solution INSTILL 1 DROP INTO EACH EYE AT BEDTIME 12/21/19 20 Active brinzolamide (AZOPT) 1 % ophthalmic suspension INSTILL 1 DROP INTO LEFT EYE THREE TIMES DAILY 04/13/20 20 Active Magnesium 250 MG tablet Take by mouth 1 (one) time each day Active liothyronine (CYTOMEL) 5 MCG tablet Take 5 mcg by mouth 1 (one) time each day Active nystatin (MYCOSTATIN) powder Apply topically twice a day 03/24/20 24 Active carvedilol (COREG) 3.125 MG tabletIndicati ons:Hypertensi on Take 1 tablet (3.125 mg total) by mouth in the morning and 1 tablet (3.125 mg total) in the evening. Take with meals. 01/12/20 25 Active gabapentin (NEURONTIN) 300 MG capsule Take 300 mg by mouth every night 025 Discontinued valACYclovir (VALTREX) 500 MG tablet Take 500 mg by mouth 3 (three) times a day if needed 07/28/19 20 025 Discontinued carvedilol (COREG) 3.125 MG tablet 01/12/20 21 025 Discontinued(Re order (does not appear on AVS)) Active Problems Problem Noted Date Diagnosed Date Vitamin D deficiency 02/04/2022 Mixed hyperlipidemia 09/30/2020 Stage 3a chronic kidney disease 10/21/2019 Hypertension 07/27/2019 Obstructive sleep apnea 12/15/2017 Chronic obstructive pulmonary disease 12/15/2017 Encounters Date Type Department Care Team Description 01/24/2025 Telephone [facility] [address] [place] [phone] Ricarda Jacob MD 01/20/2025 Documentation Only [facility] [address] [place] [phone] Ricarda Jacob MD 01/12/2025 Documentation Only [facility] [address] [place] [address] Alexa Meyers 01/12/2025 Telephone [facility] [address] [place] [phone] Camasse, Alexa 01/11/2025 1:30 PM CDT Office Visit [facility], [facility] [address] [place] [address] Divya Hobson NP Stage 3b chronic kidney disease (HCC) (Primary Dx); Hypertension 01/11/2025 Documentation Only [facility], [facility] [address] [place] [phone] Mena Selas MA 01/11/2025 Documentation Only [facility], [facility] [address] [place] [address] Mena Seals MA 01/11/2025 Documentation Only [facility], [facility] [place] [address] Camasse, Alexa 01/11/2025 Documentation Only [facility], [address] [phone] Camasse, Alexa 01/05/2025 Documentation Only [facility], [facility] [address] [place] [address] Karli Rahman MA 01/05/2025 Orders Only [facility], [facility] [address] [place] [phone] Karli Rahman MA 01/05/2025 Documentation Only [facility], [facility] [address] [place] [phone] Megha Willis MA 01/05/2025 Telephone [facility], [facility] [address] [place] [address] Ricarda Jacob MD 12/15/2024 Telephone [facility] [address] [place] [address] Ricarda Jacob MD from Last 3 Months Immunizations Immunization Administration Dates Next Due Influenza TIV (IM) 02/23/2019,03/21/2017 Influenza, Quadrivalent, Preservative Free 02/11,02/23/2019 Influenza, Quadrivalent, With Preservative 02/19 Moderna SARS-COV-2 09/12/2020,08/14/2020 Pneumococcal Polysaccharide 04/06/2016 Zoster 03/21/2017 Family History Medical History Relation Comments Cancer Brother Kidney disease Brother Dementia Father Diabetes Father Heart disease Father Hypertension Father Cancer Maternal Grandmother Cancer Paternal Grandfather Cancer Sister Kidney disease Sister Relation Status Comments Brother Father Maternal Grandmother Mother Paternal Grandfather Sister Social History Tobacco Use Types Packs/Day Years Used Date Smoking Tobacco: Never Smokeless Tobacco: Never Tobacco Cessation:Counseling Given: Not Answered Alcohol Use Standard Drinks/Week Comments Not Currently 0 (1 standard drink = 0.6 oz pur e alcohol) Comments Unknown Sex and Gender Information Value Date Recorded Sex Assigned at Not on file Legal Sex Female 11:49 AM EDT Gender Identity Not on file Sexual Orientation Not on file Last Filed Vital Signs Vital Sign Reading Time Taken Comments Blood Pressure 128/82 01/11/2025 1:39 PM CDT Pulse 84 01/11/2025 1:39 PM CDT Temperature 36.8 C (98.2 F) 01/26/2020 2:00 PM CDT Respiratory Rate - - Oxygen Saturation 95% 11/16/2023 1:36 PM CDT Inhaled Oxygen Concentration - - Weight 86.9 kg (191 lb 9.6 oz) 01/11/2025 1:39 P M CDT Height 152.4 cm (5') 01/11/2025 1:39 PM CDT Body Mass Index 37.42 01/11/2025 1:39 PM CDT Plan of Treatment Upcoming Encounters Date Type Department Care Team (Late st Contact Info) Description 04/17/2025 11:30 AM BUFFING WHEEL OPERATOR Office Visit [facility], [facility] [address] [place] [address] Divya Hobson NP [address] [facility] [address] [place] [address] Health Maintenance Due Date Last Done Comments Breast Cancer Screening 1955 Colorectal Cancer Screening: Annual FOBT 2004 Colorectal Cancer Screening: Colonoscopy 2004 Colorectal Cancer Screening: Sigmoidoscopy 2004 Pneumococcal Vaccine: 50+ Years (3 of 3 - PCV20 or PCV21) 04/10/2021 02/13/2021, 04/06/2016 Influenza Vaccine (#1) 2025 2, 02/12/2020, 02/23/2019, Additional history exists Pneumococcal Vaccine: Peds (0 to 5 Years) and At-Risk Patients (6 to 49 Years) Discontinued 02/13/2021, 04/06/2016 Hepatitis B Vaccine Aged Out No longe r eligible based on patient's age to complete this topic Procedures Procedure Name Priority Date/Time Associated Diagnosis Comments RENAL FUNCTION PANEL Routine 01/09/2025 12:20 PM CDT Stage 3b chronic kidney disease (HCC) CBC (INCLUDES DIFF/PLT) (EXTERNAL LAB ENTRY) Routine 01/09/2025 PTH, INTACT (EXTERNAL LAB ENTRY) Routine 01/09/2025 ALBUMIN/CREATININE, RANDOM URINE (EXTERNAL RESULT ENTRY) Routine 01/09/2025 VITAMIN D, 25-OH (D2,D3) (EXTERNAL LAB ENTRY) Routine 01/05/2025 CBC (INCLUDES DIFF/PLT) (EXTERNAL LAB ENTRY) Routine 01/05/2025 ALBUMIN/CREATININE, RANDOM URINE (EXTERNAL RESULT ENTRY) Routine 01/05/2025 PTH 1-84 BIO-INTACT (EXTERNAL RESULT ENTRY) Routine 01/05/2025 from Last 3 Months Results * Renal Function Panel (01/09/2025 12:20 PM CDT) Glucose 94 mg/dL PRINT/EXTE RNAL (NON-INTERFACE D LABS) BUN 16 mg/dL PRINT/EXTE RNAL (NON-INTERFACE D LABS) Creatinine 1.2 mg/dL PRINT/EXT ERNAL (NON-INTERFACE D LABS) Sodium 141 mEq/L PRINT/EXTE RNAL (NON-INTERFACE D LABS) Potassium 4.5 mEq/L PRINT/EXTE RNAL (NON-INTERFACE D LABS) Chloride 107 PRINT/EXTE RNAL (NON-INTERFACE D LABS) Carbon Dioxide 26 mmol/L PRINT /EXTERNAL (NON-INTERFACE D LABS) Calcium 9.3 mg/dL PRINT/EXTE RNAL (NON-INTERFACE D LABS) Phosphorus, Serum 3.5 mg/dL PRINT/EXTERNAL (NON-INTERFACE D LABS) Albumin (Blood) 3.9 g/dL PRIN T/EXTERNAL (NON-INTERFACE D LABS) eGFR Non-Afr Libyan 44.5 PRINT/EXTERNAL (NON-INTERFACE D LABS) Blood Venous blood / Unknown 01/09/2025 12:20 PM CDT Narrative PRINT/EXTERNAL (NON-INTERFACED LABS) - 01/11/2025 9:09 AM CDT [facility] [address] [place] [address] Kirti Funez, Deburring Machine Operator us Ricarda Jacob MD LAB BLOOD ORDERABLES Final Re sult PRINT/EXTERNAL (NON-INTERFACED LABS) * Albumin/Creatinine in Urine (01/09/2025) Only the most recent of2 resultswithin the time period is included. Creatinine, Urine Random 162 mg/dL MICROALBUMIN CREAT URINE 25 mg/dl Microalbumin Urine Random 4 ug/dl Urine Urine specimen / Unknown 01/09/2025 Mena Amaya MA - 01/11/2025 11:36 AM CDT [facility] [address] [place] [address] Kirti Funez, Deburring Machine Operator us Ricarda Jacob MD LAB URINE ORDERABLES Final Re sult * CBC (Includes Diff/Plt) (External Lab) (01/09/2025) Only the most recent of2 resultswithin the time period is included. WBC 5.7 K/uL Red Blood Cell Count 4.24 Hemoglobin 12.50 g/dL Hematocrit 40.7 % MCV 96.0 MCH 29.5 MCHC 30.7 RDW 14.6 Platelet Count 259 MPV 8.7 Absolute Neutrophils 3.57 Absolute Lymphocytes 1.4 Absolute Monocytes 0.5 Absolute Eosinophils 0.2 Absolute Basophils 0.0 Neutrophils 62.4 K/uL Lymphocytes 24.2 Monocytes 9.3 Eosinophils 2.6 Basophils 0.4 Blood 01/09/2025 us Ricarda Jacob MD LAB BLOOD ORDERABLES Final Re sult * PTH, Intact (External Lab) (01/09/2025) Pathologist [facility] Parathyroid Hormone, Intact 37.0 pg/mL Blood 01/09/2025 us Ricarda Jacob MD LAB BLOOD ORDERABLES Final Re sult * PARATHYROID HORMONE 1-84 BIO-INTACT (01/05/2025) Pathologist [facility] PTH, 1-84 Bio-Intact 45.7 01/05/2025 Narrative Karli Rahman MA - 01/05/[address] [address] [place] Ricarda Jacob MD LAB BLOOD ORDERABLES Final Re sult * Vitamin D, 25-OH (D2,D3) (External Lab) (01/05/2025) Pathologist [facility] Vitamin D, 25-OH, Total 24 ng/mL Blood 01/05/2025 Narrative Karli Rahman MA - 01/05/[address] [address] [place] Ricarda Jacob MD LAB BLOOD ORDERABLES Final Re sult from Last 3 Months Insurance Medicaid [place] ([id number]) [facility] Medicare Care Teams Wool Buyer Relationship Specialty Start Date End Date Makenzie Nur DO [address] [place] [address] PCP - General Family Medicine 05/17/24
--- OUTSIDE RECORDS SUMMARY | 2025-01-29 07:54 | XMS_ITS | Encounter Summary ---
Author Organization [facility] [employer], [facility] Address [address] [place] [address] Phone Care Team Providers Care Pediatric Clinical Dietician Name Role Phone Makenzie Nur DO Primary Care Provider [phone] Encounter Details Date Type Department Care Team (Late st Contact Info) Description 01/24/2025 Telephone [facility] [employer] [address] [place] [address] Ricarda Jacob MD [address] [place] [address] Social History Tobacco Use Types Packs/Day Years [...] encounter Miscellaneous Notes * Telephone Encounter - Alexa Meyers - 01/24/2025 1:22 PM CDT Spoke with pt RE; US results. Pt verbalized understanding and will follow with PCP * Telephone Encounter - Alexa Meyers - 01/24/2025 1:22 PM CDT No acute findings indicating need for additional follow-up. As advised at visit, follow up with PCP. Thank you Divya Hobson NP ----- Message ----- From: Myles Vasquez Sent: 01/20/2025 12:11 PM CDT To: Divya Hobson NP Subject: Import Imported by Myles Vasquez on 01/20/2025 at 12:11 PM to the following: Documentation Only on 01/20/2025 with Ricarda Jacob MD [[id number]] documented in this encounter Plan of Treatment Upcoming Encounters Date Type Department Care Team (Late st Contact Info) Description 04/17/2025 11:30 AM LUMBER SCALER Office Visit [facility], [facility] [address] [place] [phone] Divya Hobson NP [address] [phone] documented as of this encounter Visit Diagnoses Not on filedocumented in this encounter Care Teams Pediatric Clinical Dietician Relationship Specialty Start Date End Date Makenzie Nur DO [address] [place] [phone] PCP - General Family Medicine 05/17/24 documented as of this encounter
--- OUTSIDE RECORDS SUMMARY | 2025-01-29 07:54 | XMS_ITS | Clinical Summary ---
Author Organization [facility] Address [address] [place] [address] Care Team Providers Care Mission Commander Name Role Phone Makenzie Nur Primary Care Provider [phone] Allergies Active Allergy Reactions Criticality Noted Date Comments Alpha-Gal (Rjljgnitb-Xbauo-0,3-Galactose) Diarrhea Low 11/04/2023 Sertraline Dizziness Low 03/20/2022 [...] area daily. 30 Gram 3 024 Active hydrocortisone (HYTONE) 2.5 % Cream Apply [...] AFFECTED AREA TWICE A DAY 30 Gram Active diclofenac sodium (VOLTAREN) 1 % gelIndications:Pa in in right arm Apply 2 Grams to affected area 4 times daily. 100 Gram 2 Active famotidine (PEPCID) 20 mg tabletIndications :Allergy to alpha-gal Take 1 Tablet (20 mg) by mouth 2 times daily. 180 Tablet Active flunisolide (NASALIDE) 25 mcg (0.025 %) [place], Non-AerosolIndica tions:Chronic sphenoidal sinusitis,Chronic maxillary sinusitis Administer [...] mouth daily at bedtime. 100 Tablet 1 06/23/2 025 Active irbesartan (AVAPRO) 150 mg tabletIndications :Essential hypertension Take 1 Tablet (150 mg) by mouth daily at bedtime. 100 Tablet 1 Active liothyronine (CYTOMEL) 5 mcg TabletIndications :Acquired hypothyroidism Take 3 Tablets (15 mcg) by mouth daily. 270 Tablet 1 Active nystatin (NYSTOP) 100,000 unit/gram powderIndications :Yeast [...] mouth daily with supper. 100 Tablet 1 Active cefdinir (OMNICEF) 250 mg/5 mL suspension Take 250 mg by mouth 2 times daily. Active tiZANidine (ZANAFLEX) 4 mg TabletIndications :Chronic midline low back pain with right-sided sciatica Take 1 Tablet (4 mg) by mouth every 6 hours as needed for Spasm. 60 Tablet Active polyethylene glycol 3350 (MIRALAX) 17 gram/dose PowderIndications :Other constipation Take 1 Scoop (17 Grams) by mouth daily. Dissolve in 8 ounces of fluid and drink entire liquid 527 Gram Active oxyCODONE-acetami nophen (PERCOCET) 7.5-325 mg TabletIndications :Chronic midline low back pain with right-sided sciatica Take 1 Tablet by mouth 4 times daily as needed for Pain, Moderate. Max Daily Amount: 4 Tablets 10 Tablet Active zonisamide (Zonisade) 20 mg/mL SuspensionIndicat ions:Seizure disorder (CMS/HCC) TAKE 20 ML BY MOUTH ONCE DAILY 600 mL 3 025 Active zonisamide (Zonisade) 20 mg/mL SuspensionIndicat ions:Seizure disorder (CMS/HCC) TAKE 20 ML BY MOUTH ONCE DAILY 600 mL 3 025 2024 Discontinued Active Problems Problem Noted Date Diagnosed Date [...] Encounters Date Type Department Care Team Description 01/10/2025 Abstract [facility] [address] [place] [address] Makenzie Nur, 01/10/2025 Orders Only [facility] [address] 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 Seizure disorder ([facility]) 12/21/2024 External Device Data [facility] ABSTRACTION Provider, Abstract 12/20/2024 External Device Data [facility] ABSTRACTION Provider, Abstract 12/13/2024 External Device Data [facility] ABSTRACTION Provider, Abstract 12/07/2024 Telephone [facility] [address] [place] [address] Makenzie Nur, DO Medication Question 12/06/2024 3:20 PM CDT Office Visit [facility] [address] [place] [address] Ramirez, September, [employer]ER Acute cystitis without hematuria (Primary Dx); COPD with exacerbation (CMS/HCC); Chronic midline low back pain with right-sided sciatica; Other constipation; Other cough 12/05/2024 Orders Only [facility] [address] [place] [address] Provider, Abstract 11/30/2024 Telephone [facility] [address] [place] [address] Makenzie Nur, Question 11/28/2024 Telephone [facility] [address] [place] [address] Makenzie Nur, Information 11/11/2024 Results Follow-Up [facility] [address] [place] [address] Makenzie Nur, DO CBC WITH DIFFERENTIAL, COMPREHENSIVE METABOLIC PANEL, TSH, Additional followed-up results: 2 11/10/2024 9:40 AM CDT Office Visit [facility] [address] [place] [address] Makenzie Nur, DO Essential hypertension (Primary Dx); Allergy to alpha-gal; Stage 3a chronic kidney disease (CMS/HCC); Seizure disorder (CMS/HCC); Vitamin D deficiency; Panlobular emphysema (CMS/HCC); Acquired hypothyroidism; ANDRE (generalized anxiety disorder); Mixed hyperlipidemia; Gastroesophageal reflux disease without esophagitis; Chronic midline low back pain with right-sided sciatica; Obstructive sleep apnea; Severe obesity (BMI 35.0-39.9) with comorbidity (CMS/HCC) from Last 3 Months Immunizations Immunization Administration Dates Next Due (Cinsay)(12 YR UP) COVID-19 VACCINE - EMERGENCY USE AUTHORIZATION, MRNA, [id number](PF) 30 MCG/0.3 ML IM SUSP 03/05/2024 (PREVNAR 20)(6 WKS UP) PNEUM OCOCCAL CONJUGATE VACCINE 20-VALENT (PCV20), POLYSACCHARIDE [id number] CONJUGATE, ADJUVANT 0.5 ML (PF) IM 02/17/2022 [...] Pat 1/2 Lung Cancer Sister 3 Pat 06/09 Breast Cancer Neg Hx Colon Cancer Neg [...] on file 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 Gender Identity Not on file Sexual Orientation Not on file Last Filed Vital Signs Vital Sign Reading Time Taken Comments Blood Pressure 122/60 12/06/2024 3:32 PM CDT Pulse 91 12/06/2024 3:32 PM CDT Temperature 36.8 C (98.2 F) 12/06/2024 3:32 PM CDT Respiratory Rate 18 12/06/2024 3:32 PM CDT Oxygen Saturation 95% 12/06/2024 3:32 PM CDT Inhaled Oxygen Concentration - - Weight 87.5 kg (193 lb) 12/06/2024 3:32 PM CDT Height 152.4 cm (5') 12/06/2024 3:32 PM CDT Body Mass Index 37.69 12/06/2024 3:32 PM CDT Plan of Treatment Upcoming Encounters Date Type Department Care Team (Late st Contact Info) Description 02/03/2025 11:30 AM CDT Telemed [facility] [place] [address] [place] [phone] Maria L Hensley MD [address] [place] [address] 02/09/2025 10:00 AM CDT Office Visit [facility] [address] [place] [facility] [phone] September, [place] [phone] 02/10/2025 3:00 PM CDT Office Visit [facility] [address] [place] [facility] [phone] September, [place] [facility] [address] 03/07/2025 11:00 AM CDT Office Visit [facility] [address] [place] [phone] September, [facility] [address] [place] [address] 03/21/2025 1:30 PM CDT Appointment [facility] [address] [facility] [address] [place] [phone] You Kim MD [address] [place] [address] 05/18/2025 9:40 AM TIMBER REPAIRER Office Visit [facility] [address] [place] [address] Makenzie Nur, [address] [place] [phone] 05/26/2025 10:40 AM TIMBER REPAIRER Office Visit [place] [address] [facility] [place] [phone] AshleySeptember, [facility] [address] [place] [phone] Health Maintenance Due Date Last Done Comments [...] 04/02/2022, 05/03/2021, Additional history exists Medicare Ad[place]age ([place]) Preventative Visit/Annual Wellness Visit 06/08/2024 04/22/2023, 12/12/2021 FLEX SIG/CT COLONOGRAPHY Q 5 YEARS (AUTO ORDER) 11/03/2024 11/04/2019, 11/04/2019 INFLUENZA VACCINE (#1) 2025 4, 02/22/2023, 02/17/2022, Additional history exists BREAST CANCER SCREENING 04/05/2025 04/05/20 24, 01/23/2021, 01/06/2020, Additional history exists Colorectal Cancer Screening (AUTO ORDER) 08/04/2025 Colorectal Cancer Screening 08/04/2025 FIT-DNA Q 3 years 08/04/2025 08/04/2022, 11/04/2019 FIT/ DNA Q 3 YEARS (AUTO ORDER) 08/04/2025 08/04/2022, 11/04/2019, 11/04/2019 OSTEOPOROSIS SCREENING 05/27/2028 05/27/2023 PNEUMOCOCCAL VACCINE 50+ YEARS Completed 0 02/17/2022, 02/13/2021, 04/06/2016, Additional history exists Goals Goal Patient Goal [...] own needs Discussed with patient referral for [facility], -clinician will reach out to [facility] to began intake process (clinician will follow up with this, local [facility] not an option) -clinician will complete intake form for [facility] -patient shares she does not have many people to talk about her struggles with Patient will think of new hobby to help keep her distracted from partner, discussed volunteering opportunities. Procedures Procedure Name Priority Date/Time Associated Diagnosis Comments PTH INTACT Routine 01/09/2025 10:43 AM CDT VITAMIN D 25 HYDROXY Routine 01/09/2025 10:42 AM CDT RENAL FUNCTION PANEL Routine 01/09/2025 10:41 AM CDT CBC WITH DIFFERENTIAL Routine 01/09/2025 10:40 AM CDT MICROALBUMIN/CREATINI NE RATIO, RANDOM UR Routine 01/09/2025 POC INFLUENZA A AND B ANTIGEN Routine 12/06/2024 4:19 PM CDT Other cough POC COVID-19 ANTIGEN Routine 12/06/2024 4:18 PM CDT Other cough COMPREHENSIVE METABOLIC PANEL Routine 12/05/2024 1:08 PM CDT VITAMIN D 25 HYDROXY Routine 11/10/2024 10:18 AM CDT Vitamin D deficiency LIPID PANEL Routine 11/10/2024 10:18 AM CDT Essential hypertension TSH Routine 11/10/2024 10:18 AM CDT Essential hypertension COMPREHENSIVE METABOLIC PANEL Routine 11/10/2024 10:18 AM CDT Essential hypertension CBC WITH DIFFERENTIAL Routine 11/10/2024 10:18 AM CDT Essential hypertension MAMMO 3D TAMARA SCREEN BILAT W OR WO CAD Routine 04/05/2024 Screening mammogram, encounter for XR DEXA BONE DENSITY AXIAL 1 OR MORE SITES Routine 05/27/2023 3:47 PM TIMBER REPAIRER 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 Blood [employer] DO CHEMISTRY ORDERABLES Final Result * RENAL FUNCTION PANEL (01/09/2025 10:41 AM CDT) Blood Makenzie [employer] DO CHEMISTRY ORDERABLES Final Result * CBC WITH DIFFERENTIAL (01/09/2025 10:40 AM CDT) Only the most recent of2 resultswithin the time period is included. Blood [facility] DO HEMATOLOGY ORDERABLES Final Result * MICROALBUMIN/CREATININE RATIO, RANDOM UR (01/09/2025) ABSTRACTED MICROALBUMIN,URI NE 4.0 ABSTRACTED CREATININE, URINE ABSTRACTED MICROALBUMIN/CRE ATININE RATIO, URINE Urine URINE SPECIMEN OBTAINED BY CLEAN CATCH PROCEDURE / Unknown 01/09/2025 [facility] DO URINE ORDERABLES Final Resu lt * POC INFLUENZA A AND B ANTIGEN (12/06/2024 4:19 PM CDT) Pathologist [facility] INFLUENZA A AG POC Negative/Not Detected Negative/Not Detected [facility] INFLUENZA B AG POC Negative/Not Detected Negative/Not Detected [facility] INTERNAL KIT QC POC Pass Pass [facility] KIT LOT NUMBER POC [id number] [facility] KIT EXP DATE POC [id number] [facility] READ METHOD POC Instrument [facility] Upper Respiratory ANTERIOR NARES SWAB / Unknown 12/06/2024 4:19 PM CDT September [employer]RINKER POINT OF CARE TESTING Final Resu lt [facility] CLIA# [id number] [address] [place] [address] * POC COVID-19 ANTIGEN (12/06/2024 4:18 PM CDT) Pathologist [facility] COVID-19 ANTIGEN POC Presumptively Negative Presumptively Negative [facility] INTERNAL KIT QC POC Pass Pass [facility] KIT LOT NUMBER POC [id number] [facility] KIT EXP DATE POC [id number] [facility] READ METHOD POC Instrument [facility] Upper Respiratory 12/06/2024 4:18 PM CDT September [employer]ER POINT OF CARE TESTING Final Resu lt Performing Organization Address City/[facility]/ZIP Co de Phone Number [facility] CLIA# [id number] [address] [place] [address] * COMPREHENSIVE METABOLIC PANEL (12/05/2024 1:08 PM CDT) Only the most recent of2 resultswithin the time period is included. Blood us Abstract Provider CHEMISTRY ORDERABLES Final Res ult * TSH (11/10/2024 10:18 AM CDT) Pathologist [facility] TSH 1.33 0.40 - 4.50 mIU/L [facility] Comment: FASTING:UNKNOWN FASTING: UNKNOWN Test Performed at: [facility] [address] [place] [address] Jennifer Smith MD Blood 11/10/2024 10:1 8 AM CDT 11/10/2024 10:18 AM CDT Makenzie Nur DO CHEMISTRY ORDERABLES Final Result Performing Organization Address [facility]/ZIP Co de Phone Number [facility] [phone] [facility] [address] [place] [address] * LIPID PANEL (11/10/2024 10:18 AM CDT) [...] factors. LDL-C is now calculated using the Amanuel calculation, which is a validated novel method providing better accuracy than the Friedewald equation in the estimation of LDL-C. Tyler BONDS et al. ROXANNE. 2013;310(19): 0543-1247 (http://education.Fundly/faq/YUA735) CHOL/HDL RATIO 2.3 <5.0 (calc) [facility] NON-HDL CHOLESTEROL 96 <130 mg/dL (calc) [facility] Comment: For patients with diabetes plus 1 major ASCVD risk factor, treating to a non-HDL-C goal of <100 mg/dL (LDL-C of <70 mg/dL) is considered a therapeutic option. Test Performed at: [facility] [address] [place] [address] Jennifer Smith MD Blood 11/10/2024 10:1 8 AM CDT 11/10/2024 10:18 AM CDT Makenzie Nur DO CHEMISTRY ORDERABLES Final Result [facility] [phone] [facility] [address] * MAMMO 3D TAMARA SCREEN BILAT W OR WO CAD (04/05/2024) Anatomical Region Laterality Modality Breast Bilateral Mammography September CLOTH SHRINKER MAMMO ORDERABLES Final Result * (ABNORMAL) XR DEXA BONE DENSITY AXIAL 1 OR MORE SITES (05/27/2023 3:47 PM TIMBER REPAIRER) T-SCORE HIP (LEFT) 1.90(A) -1.0 - 1.0 INTERFACE SYSTEM T-SCORE SPINE 2.30(A) -1.0 - 1.0 INTER FACE SYSTEM Anatomical Region Laterality Modality Digital Radiogra phy, Mammography 05/27/2023 3:48 PM TIMBER REPAIRER Impressions 05/27/2023 5:08 PM TIMBER REPAIRER IMPRESSION: Bone mineral density values fall within the normal range as above. NOF guidelines recommend consideration of FDA-approved medical therapies in patients with FRAX determined 10-year probabilities of hip/major osteoporosis-related fractures equal or greater than 3%/20% respectively. Consider assessing fracture risk using the FRAX analysis tool for guidance of clinical management available online at www.shef.ac.uk/FRAX/. Enter Tour Desk for Select DXA and the Femoral Neck BMD value. Narrative 05/27/2023 5:08 PM TIMBER REPAIRER DEXA Evaluation of the Lumbar Spine and Left Proximal Femur Reason For Exam: See Diagnosis. Evaluation of bone mineral density. 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 The following [...] bone mineral density. 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 The following [...] clinical management available online at www.shef.ac.uk/FRAX/. Enter [employer] for Select DXA and the Femoral Neck BMD value. Nevaeh Rao [facility] DIAGNOSTIC IMAGING ORDERAB LES Final Result * COLON CANCER SCREEN, STOOL DNA (08/04/2022 4:30 PM TIMBER REPAIRER) [facility] COLOGUARD RESULT Negative Negative EXA Related Content Database (RCDb) Comment: NEGATIVE TEST RESULT. A negative Cologuard [...] with both Cologuard and colonoscopy. (Leigh Ann Porras. et al, N Engl J Med 2014;370(14):7888-5356) The normal value (reference range) for this assay is negative. COLOGUARD RE-SCREENING RECOMMENDATION: Periodic colorectal cancer screening is an important part of preventive healthcare for asymptomatic individuals at average risk for colorectal cancer. Following a negative Cologuard result, the [place] Cancer Society and U.S. Multi-Society Task Force screening guidelines recommend a Cologuard re-screening interval of 3 years. References: [place] Cancer Society Guideline for Colorectal Cancer Screening: https://www.cancer.org/cancer/mcrvq-zfxgns-feouzm/xzwxtnoyz-wghjsdgjl-qjppxpp/ac s-rec ommendations.html.; Jorge NOVAK, Maryam CHAVES, Riaz RAMIREZ, Colorectal Cancer Screening: Recommendations for Physicians and Patients from the U.S. Multi-Society Task Force on Colorectal Cancer Screening , Am J Gastroenterology 2017; 112:8904-7655. TEST DESCRIPTION: Composite algorithmic analysis of stool [...] with both Cologuard and colonoscopy. (Leigh Ann Porras. et al, N Engl J Med 2014;370(14):5293-9708.) Cologuard may produce a false negative or false positive result (no colorectal cancer or precancerous polyp present at colonoscopy follow up). A negative Cologuard test result does not guarantee the absence of CRC or advanced adenoma (pre-cancer). The current Cologuard screening interval is every 3 years. ([place] Cancer Society and U.S. Multi-Society Task Force). Cologuard performance data in a 10,000 patient pivotal study using colonoscopy as the reference method can be accessed at the following location: www.BigTime Software/results. Additional description of the Cologuard test process, warnings and precautions can be found at www.Suede Lanerd.com. Stool STOOL SPECIMEN / Unknown 08/04/2022 4:30 PM TIMBER REPAIRER 08/05/2022 5:39 PM TIMBER REPAIRER Nevaeh Rao CL[employer] SHRINKER BODY FLUIDS AND STOOLS Fin al Result [facility] CLIA # [id number] [address], [address] [place] [address] from Last 3 Months or Most Recently Relevant to Health Maintenance Insurance [facility] PLAN [facility] [id number] [facility] [employer] [employer] [facility] [id number] Care Teams Mission Commander Relationship Specialty Start Date End Date Makenzie Nur DO [address] [place] [address] PCP - General Family Practice 09/15/17
--- NOTE | 2025-01-29 08:00 | CTR_ITS ---
PROCEDURE INFORMATION: Exam: CT Abdomen And Pelvis Without Contrast Exam date and time: 01/29/2025 8:33 AM Age: 69 years old Clinical indication: Abdominal pain; Flank; Left; Additional info: Eval L kidney stone, flank pain TECHNIQUE: Imaging protocol: Computed tomography of the abdomen and pelvis without contrast. Radiation optimization: All CT scans at this facility use at least one of these dose optimization techniques: automated exposure control; mA and/or kV adjustment per patient size (includes targeted exams where dose is matched to clinical indication); or iterative reconstruction. COMPARISON: CT abdomen pelvis w con* [id number] 12/05/2024 3:30 AM RADIATION DOSE METRICS: Total DLP (mGy-cm): 866.8 FINDINGS: Lungs: Multiple less than 3 mm bilateral pulmonary nodules are present. Otherwise lung bases are clear. Liver: There is a 1.6 cm cyst in the medial segment of the left lobe of the liver. Gallbladder and biliary ducts: The gallbladder is surgically absent. Pancreas: Normal. No ductal dilation. Spleen: Multiple granulomas are present in the spleen. Adrenal glands: Normal. No mass. Kidneys and ureters: There is atrophy of the left kidney. Stomach and bowel: There is diverticulosis without evidence of diverticulitis. Appendix: No evidence of appendicitis. Intraperitoneal space: Unremarkable. No free air. No significant fluid collection. Vasculature: Unremarkable. No abdominal aortic aneurysm. Lymph nodes: Unremarkable. No enlarged lymph nodes. Urinary bladder: Unremarkable as visualized. Reproductive: Unremarkable as visualized. Bones/joints: Multilevel degenerative changes of the spine are present no lytic or blastic lesions are identified. Soft tissues: There is a ventral abdominal wall hernia containing fat. CT/CT abdomen pelvis wo con [id number] IMPRESSION: 1. No acute abnormality identified. 2. Multilevel degenerative changes of the spine. 3. Status post cholecystectomy 4. Multiple less than 3 mm bilateral pulmonary nodules. Follow-up per Fleischner guidelines: Multiple solid nodules: <6 mm Low risk- no routine follow-up Htlr-fkti-tfeffiil CT at 12 months Karen Bellamy, Zacarias ROMERO, Cristin G, et al. Guidelines for management of small pulmonary nodules detected on CT scans: a statement from the Fleischner Society. Radiology 2005;237(2):395-400.
--- NOTE | 2025-01-29 08:18 | W.ED.BACK ---
HPI - Back Pain/Injury General: Chief Complaint: Back Pain/Injury Stated Complaint: low lt back pain Time Seen by Provider: 01/29/25 07:47 History of Present Illness: HPI: Patient with history of left kidney atrophy (by report) and intermittent musculoskeletal back pain presenting with low back pain today. Describes the pain as located in her left flank to buttocks that does not radiate around to the front, epigastrium, or chest. No associated nausea, vomiting, or diarrhea. No fevers, sweats, chills. Only previous abdominal history described by the patient is a cholecystectomy remotely. No vaginal bleeding, hematochezia, or genital symptoms. Patient does state on review of systems that she is urinating more frequently. She notes similar symptoms like this have occurred in the past when she overexerts herself and she has been moving objects around her house recently over the last 48 hours involving lifting heavier items and moving them around her house. Has been bending at the waist and turning at the trunk frequently. No bowel or bladder incontinence, fevers, previous drug use, or back surgery. REVIEW OF SYSTEMS: 10 systems reviewed and otherwise unremarkable except for those noted in HPI. PHYSCIAL EXAM: Triage vital signs reviewed Gen: A&O NAD HEENT: NCAT, EOMI, not icteric. External ears normal. No rhinorrhea. Moist mucous membranes. Neck: Supple, full range of motion, no observable masses, No meningeal sign. Lungs: No Respiratory distress. CV: RRR, no edema. Abdomen: Soft, nondistended, No rebound tenderness. MSK: No joint swelling, no redness. Mild tenderness to palpation without overlying redness of the left paraspinous area in the lumbar region at the gluteus medius/steve insertion. Negative straight leg raise bilaterally negative FABIR testing. L3-S1 strength and sensation intact bilaterally. Skin: No rashes, petechiae, lesions. Normal color per patient. Neuro: Normal Gait, Grossly intact. Psych: Appropriate for situation. PROCEDURES: N/A Related Data Home Medications ?Medication ?Instructions ?Recorded ?Confirmed fluticasone fur. 100 mcg-umeclid 1 inh inhalation DAILY 11/14/19 09/25/24 62.5 mcg-vilant 25 mcg inhalat.powder (Trelegy Ellipta) irbesartan 150 mg tablet 150 mg PO QPM 11/14/19 09/25/24 levothyroxine 75 mcg tablet 225 mcg PO QAM 11/14/19 09/25/24 (Synthroid) simvastatin 20 mg tablet 20 mg PO QPM 11/14/19 09/25/24 brinzolamide 1 % eye 1 drop ophthalmic (eye) TID 11/24/19 09/25/24 drops,suspension (Azopt) magnesium 250 mg tablet 250 mg PO DAILY 01/10/21 09/25/24 flunisolide 25 mcg (0.025 %) nasal 1 spray intranasal BID PRN 10/08/21 09/25/24 spray allergies/congestion zonisamide 100 mg/5 mL oral 25 mg PO QPM 09/20/24 09/25/24 suspension (Zonisade) famotidine 20 mg tablet 20 mg PO BID 09/25/24 09/25/24 hydrocortisone 2.5 % topical cream 1 applic topical BID PRN Skin 09/25/24 09/25/24 Irritation pantoprazole 40 mg tablet,delayed 40 mg PO DAILY 09/25/24 09/25/24 release potassium citrate 99 mg capsule 99 mg PO DAILY 09/25/24 09/25/24 tacrolimus 0.1 % topical ointment 1 applic topical BID PRN 09/25/24 09/25/24 red/irritated rash Previous Rx's ?Medication ?Instructions ?Recorded carvedilol 6.25 mg tablet 6.25 mg PO BID #180 tabs 11/01/24 oxycodone-acetaminophen 7.5 mg-325 1 tab PO Q6H PRN pain #10 tabs 12/05/24 mg tablet (Percocet) cyclobenzaprine 5 mg tablet 5 mg PO TID PRN muscle spasm #14 01/29/25 tabs Allergies Allergy/AdvReac Type Severity Reaction Status Date / Time Alpha-Gal Allergy Intermediate Unknown Verified 12/14/24 14:24 ([id number],3-Gala PFSH ED PFSH: Medical History (Updated 01/29/25 @ 08:22 by Kaden Cosme MD) Hypertension Lichen sclerosus Chronic kidney disease Obstructive sleep apnea Hypertension COPD (chronic obstructive pulmonary disease) Hyperlipidemia Bilateral carotid artery stenosis GERD (gastroesophageal reflux disease) Sleep apnea Kidney stones Hypersomnia Seizures Glaucoma Morbid obesity Hypothyroid Surgical History History of History of dental surgery Hx of cholecystectomy Status post glaucoma surgery History of rotator cuff surgery Family History Father CAD (coronary artery disease) Dementia Diabetes Hyperlipidemia Hypertension Lung disease Mother Cancer Brother Chronic kidney disease (CKD) Sister Chronic kidney disease (CKD) Denies family history of Clotting disorder Suicide Anesthesia complication Bleeding disorder Stroke Social History Smoking and tobacco/nicotine status: never used tobacco/nicotine Alcohol intake: never Substance/Drug Use: never Course Vital Signs: Vital signs: Vital Signs Temperature 97.6 F 01/29/25 07:50 Pulse Rate 75 01/29/25 07:50 Respiratory Rate 16 01/29/25 07:50 Blood Pressure 135/71 01/29/25 07:50 Pulse Oximetry 99 01/29/25 07:50 Oxygen Delivery Me thod Room Air 01/29/25 07:50 MDM - Back Pain/Injury Medical Decision Making MEDICAL DECISION MAKING: Differential diagnoses considered but not limited to: Musculoskeletal low back pain, strain, sprain, atypical fracture, vascular catastrophe manifesting as flank pain, ureterolithiasis, pyelonephritis, other intra-abdominal surgical or infectious emergency. Vitals nonactionable. Given history, examination, and pretest risk factors, obtaining noncontrast CT of the abdomen pelvis possible stone versus other intra-abdominal pathology. Pending labs and imaging return. Patient treated with 10 mg of oral diazepam and a gram of Tylenol pending return of these diagnostics. Labs with elevated creatinine per baseline at 1.[address] examination not suggesting emergent retroperitoneal or intra-abdominal process. No contrast given renal dysfunction at baseline. Patient had good effect from medications for her low back pain. Advised outpatient medications and follow-up as necessary. DISPO: HASEEB Cosme MD Staff physician, [facility] [place] [facility] [phone] Labs 01/29/25 08:22 01/29/25 08:22 Radiology Impressions Abdomen/Pelvis CT 01/29/25 08:00 IMPRESSION: 1. No acute abnormality identified. 2. Multilevel degenerative changes of the spine. 3. Status post cholecystectomy 4. Multiple less than 3 mm bilateral pulmonary nodules. Follow-up per Fleischner guidelines: Multiple solid nodules: <6 mm Low risk- no routine follow-up [id number]-[id number] CT at 12 months Karen H, Zacarias JH, Cristin G, et al. Guidelines for management of small pulmonary nodules detected on CT scans: a statement from the Fleischner Society. Radiology 2005;237(2):395-400. Laboratory Results WBC 5.64 10^3/uL (3.29-11.43) 01/29/25 08:22 RBC 3.98 10^6/uL (3.85-5.65) 01/29/25 08:22 Hgb 11.90 g/dL (11.27-16.99) 01/29/25 08:22 Hct 38.4 % (36-47) 01/29/25 08:22 MCV 96.5 fl (85-98) 01/29/25 08:22 MCH 29.9 pg (27-33) 01/29/25 08:22 MCHC 31.0 g/dL (30-55) 01/29/25 08:22 RDW 13.9 % (12.1-15.1) 01/29/25 08:22 Plt Count 217 10^3/cmm (157-399) 01/29/25 08:22 MPV 8.9 fL (7.4-10.4) 01/29/25 08:22 Neut % (Auto) 65.4 % 01/29/25 08:22 Lymph % (Auto) 22.3 % 01/29/25 08:22 Cass % (Auto) 9.6 % 01/29/25 08:22 Eos % (Auto) 1.8 % 01/29/25 08:22 Baso % (Auto) 0.2 % 01/29/25 08:22 Neut # (Auto) 3.69 10^3/uL (1.8-7.7) 01/29/25 08:22 Lymph # (Auto) 1.3 10^3/uL (0.8-4.8) 01/29/25 08:22 Cass # (Auto) 0.5 10^3/uL (0.2-0.9) 01/29/25 08:22 Eos # (Auto) 0.1 10^3/uL (0.0-0.8) 01/29/25 08:22 Baso # (Auto) 0.0 10^3/uL (0.0-0.1) 01/29/25 08:22 Nucleated RBC % (auto) 0 % 01/29/25 08:22 Nucleated RBCs # 0.0 /100WBC 01/29/25 08:22 Sodium 141 mmol/L (136-145) 01/29/25 08:22 Potassium 4.3 mmol/L (3.5-5.1) 01/29/25 08:22 Chloride 108 mmol/L (98-107) H 01/29/25 08:22 Carbon Dioxide 22 mmol/L (22-29) 01/29/25 08:22 Anion Gap 15.3 (5-19) 01/29/25 08:22 BUN 21 mg/dL (8-23) 01/29/25 08:22 Creatinine 1.2 mg/dL (0.5-0.9) H 01/29/25 08:22 GFR Calculation 44.5 mL/min (90-130) L 01/29/25 08:22 Glucose 103 mg/dL (65-115) 01/29/25 08:22 Calculated Osmolality 295 mOsm/kg (285-295) 01/29/25 08:22 Lactic Acid 0.7 mmol/L (0.5-2.2) 01/29/25 08:22 Calcium 8.8 mg/dL (8.5-10.5) 01/29/25 08:22 Total Bilirubin 0.5 mg/dL (0.15-1.2) 01/29/25 08:22 AST 11 U/L (0-32) 01/29/25 08:22 ALT 6 U/L (0-33) 01/29/25 08:22 Alkaline Phosphatase 93 U/L (35-105) 01/29/25 08:22 Total Protein 6.4 g/dL (6.6-8.7) L 01/29/25 08:22 Albumin 3.6 g/dL (3.5-5.2) 01/29/25 08:22 Globulin 2.8 g/dL (1.3-4.6) 01/29/25 08:22 Lipase 21 U/L (13-60) 01/29/25 08:22 Urine Color Yellow (Yellow) 01/29/25 09:14 Urine Appearance Clear (CLEAR) 01/29/25 09:14 Urine pH 6.5 (5-7) 01/29/25 09:14 Ur Specific [place] 1.013 (1.005-1.030) 01/29/25 09:14 Urine Protein Negative (Negative) 01/29/25 09:14 Urine Glucose (UA) Negative (Normal) 01/29/25 09:14 Urine Ketones Negative (Negative) 01/29/25 09:14 Urine Blood Negative (Negative) 01/29/25 09:14 Urine Nitrate Negative (Negative) 01/29/25 09:14 Urine Bilirubin Negative (Negative) 01/29/25 09:14 Urine Urobilinogen 1.0 mg/dL (Negative) 01/29/25 09:14 Ur Leukocyte Esterase Negative (Negative) 01/29/25 09:14 Urine RBC 0-2 /hpf (0-2) 01/29/25 09:14 Urine WBC 0-5 /hpf (0-5) 01/29/25 09:14 Ur Squamous Epith Cells 0-5 /hpf (0-5) 01/29/25 09:14 Amorphous Sediment Not Reportable 01/29/25 09:14 Urine Bacteria None seen /hpf (NONE) 01/29/25 09:14 Hyaline Casts 0-4 /lpf H 01/29/25 09:14 All radiology interpretation(s) finalized by discharge Discharge Plan Discharge Patient Disposition: Home Clinical Impression: Strain of lumbar region Qualifiers: Encounter type: initial encounter Qualified Code(s): S39.012A - Strain of muscle, fascia and tendon of lower back, initial encounter Condition: Stable Prescriptions: New cyclobenzaprine 5 mg tablet 5 mg PO TID PRN (Reason: muscle spasm) Qty: 14 0RF No Action Azopt 1 % drops,suspension 1 drop ophthalmic (eye) TID irbesartan 150 mg tablet 150 mg PO QPM simvastatin 20 mg tablet 20 mg PO QPM levothyroxine [Synthroid] 75 mcg tablet 225 mcg PO QAM Trelegy Ellipta 100-62.5-25 mcg blister with device 1 inh INHALATION DAILY magnesium 250 mg tablet 250 mg PO DAILY flunisolide 25 mcg (0.025 %) spray,non-aerosol 1 spray intranasal BID PRN (Reason: allergies/congestion) Zonisade 100 mg/5 mL suspension 25 mg PO QPM carvedilol 6.25 mg tablet 6.25 mg PO BID Qty: 180 1RF Rx Instructions: must administer with a meal/food potassium citrate 99 mg Capsule 99 mg PO DAILY famotidine 20 mg tablet 20 mg PO BID pantoprazole 40 mg tablet,delayed release (DR/EC) 40 mg PO DAILY tacrolimus 0.1 % ointment 1 applic TOPICAL BID PRN (Reason: red/irritated rash) hydrocortisone 2.5 % cream 1 applic TOPICAL BID PRN (Reason: Skin Irritation) oxycodone-acetaminophen [Percocet] 7.5-325 mg tablet 1 tab PO Q6H PRN (Reason: pain) Qty: 10 0RF Discharge Orders: Discharge ED (Routine); Ordered 01/29/25 Ordered By: Kaden Cosme Referrals: Makenzie Nur DO [Primary Care Provider, [facility]] Discharge Diet: Advance as tolerated and Usual diet Discharge Activity: Resume usual activity and Increase activity as tolerated Patient Instructions: Opioid Safety, Pain Management, Patient Portal & Seema Instructions Activity Restrictions/Additional Instructions: It has been a pleasure caring for you in the emergency department. Please ensure that you follow-up with your primary care physician for review of all data obtained during this encounter including any incidental findings and laboratory values. Keep in mind that if your condition worsens in any way, I strongly recommend that you return to the emergency department for repeat evaluation immediately. Take 1000 mg of Tylenol at breakfast lunch and dinner. IMPRESSION: 1. No acute abnormality identified. 2. Multilevel degenerative changes of the spine. 3. Status post cholecystectomy 4. Multiple less than 3 mm bilateral pulmonary nodules. Follow-up per Fleischner guidelines: Print Language: Mohawk Coding Level of Care Code ED Lay Out Inspector for Carrol Stoddard
[2025-01-29 08:29] LABS: Hematocrit 38.4 % (36-47); Hemoglobin 11.90 g/dL (11.27-16.99); Mean Corpuscular HGB Conc 31.0 g/dL (30-55); Mean Corpuscular Hemoglobin 29.9 pg (27-33); Mean Corpuscular Volume 96.5 fl (85-98); Nucleated Red Blood Cells % 0 %; Platelet Count 217 10^3/cmm (157-399); Red Blood Count 3.98 10^6/uL (3.85-5.65); White Blood Count 5.64 10^3/uL (3.29-11.43)
[2025-01-29 08:45] LABS: Lactic Sepsis W/Reflex 0.7 mmol/L (0.5-2.2)
[2025-01-29 08:47] LABS: Alanine Aminotransferase 6 U/L (0-33); Albumin Level 3.6 g/dL (3.5-5.2); Alkaline Phosphatase 93 U/L (35-105); Anion Gap 15.3 (5-19); Aspartate Amino Transferase 11 U/L (0-32); Blood Urea Nitrogen 21 mg/dL (8-23); Calcium 8.8 mg/dL (8.5-10.5); Carbon Dioxide 22 mmol/L (22-29); Chloride 108 mmol/L (98-107); Creatinine Clr Calc Pharmacy 43.1483; Globulin 2.8 g/dL (1.3-4.6); Glucose 103 mg/dL (65-115); Lipase 21 U/L (13-60); Osmolality Calculated 295 mOsm/kg (285-295); Potassium 4.3 mmol/L (3.5-5.1); Sodium 141 mmol/L (136-145); Total Protein 6.4 g/dL (6.6-8.7)
[2025-01-29 09:31] LABS: Glucose Urine UA Negative (Normal); Nitrate Urine Negative (Negative); Specific Gravity, Urine 1.013 (1.005-1.030)
[2025-01-29 09:36] LABS: Add Urine Microscopic? YES
[2025-01-29 09:59] VITALS: PULSE 82; O2SAT 96
== END 2025-01-29 10:00 | disposition home or self-care (01) ==
PROVIDERS: Emergency Provider General Practice; PCP Family Medicine
DX: S39.012A Strain of muscle, fascia and tendon of lower back, initial encounter (principal); E78.5 Hyperlipidemia, unspecified; J44.9 Chronic obstructive pulmonary disease, unspecified; I12.9 Hypertensive chronic kidney disease with stage 1 through stage 4 chronic kidney disease, or unspecified chronic kidney disease; N18.9 Chronic kidney disease, unspecified; X58.XXXA Exposure to other specified factors, initial encounter
CPT/HCPCS: 74176; 80053; 81001; 83605; 83690; 85025; 99284; J9999

== ENCOUNTER 2025-02-21 11:52 | Outpatient (CLI) | payer OTHER, MEDICAID, SELFPAY ==
--- NOTE | 2025-02-21 12:04 | XR_ITS ---
WS: [id number] XR cervical spine 3V* [id number] REASON FOR EXAM: ACUTE NECK PAIN FINDINGS: Straightening of the normal lordosis of the cervical spine. No significant compression deformity or focal lesion of the cervical vertebrae. Normal odontoid. Mild narrowing of the C4-C5 disc space. Moderate narrowing of the C5-C6 and C6-C7 and C7-T1 disc spaces. Moderate posterior and anterior osteophytosis C4-C7. No significant listhesis. XR/XR cervical spine 3V* [id number] IMPRESSION: Cervical degenerative spondylosis as above.
== END 2025-02-21 11:53 | disposition home or self-care (01) ==
PROVIDERS: PCP Family Medicine
DX: M47.892 Other spondylosis, cervical region (principal); M54.2 Cervicalgia
CPT/HCPCS: 72040

== ENCOUNTER → 2025-03-30 13:36 | Outpatient (BNVA) | payer MEDICARE, MEDICAID, SELFPAY | PROVIDERS: PCP Family Medicine; Visit Provider Internal Medicine Cardiovascular Disease | DX: I65.23 Occlusion and stenosis of bilateral carotid arteries (principal); E78.5 Hyperlipidemia, unspecified; I12.9 Hypertensive chronic kidney disease with stage 1 through stage 4 chronic kidney disease, or unspecified chronic kidney disease; N18.9 Chronic kidney disease, unspecified; G47.33 Obstructive sleep apnea (adult) (pediatric) | CPT/HCPCS: 99214 ==

== ENCOUNTER 2025-04-12 12:35 | Outpatient (CLI) | payer MEDICARE, MEDICAID, SELFPAY ==
[2025-04-12 13:48] LABS: Hematocrit 38.8 % (36-47); Hemoglobin 12.20 g/dL (11.27-16.99); Mean Corpuscular HGB Conc 31.4 g/dL (30-55); Mean Corpuscular Hemoglobin 30.5 pg (27-33); Mean Corpuscular Volume 97.0 fl (85-98); Nucleated Red Blood Cells % 0 %; Platelet Count 274 10^3/cmm (157-399); Red Blood Count 4.00 10^6/uL (3.85-5.65); White Blood Count 5.70 10^3/uL (3.29-11.43)
[2025-04-12 14:06] LABS: Calcium 9.2 mg/dL (8.5-10.5)
[2025-04-12 14:08] LABS: Albumin Level 3.9 g/dL (3.5-5.2); Anion Gap 12.8 (5-19); Blood Urea Nitrogen 18 mg/dL (8-23); Calcium 9.0 mg/dL (8.5-10.5); Carbon Dioxide 25 mmol/L (22-29); Chloride 108 mmol/L (98-107); Glucose 93 mg/dL (65-115); Potassium 3.8 mmol/L (3.5-5.1); Sodium 142 mmol/L (136-145)
[2025-04-12 14:11] LABS: Creatinine Urine, Random 194 mg/dL (28-217); Microalbum Creatinine Ratio Ur 5 mg/dL (0-20)
== END 2025-04-12 12:36 | disposition home or self-care (01) ==
LOC: LAB 12:40
PROVIDERS: PCP Family Medicine; Visit Provider Registered Nurse
DX: N18.32 Chronic kidney disease, stage 3b (principal)
CPT/HCPCS: 36415; 80069; 82044; 82310; 83970; 85025

== ENCOUNTER → 2025-04-25 14:23 | Outpatient (BNVA) | payer MEDICARE, MEDICAID, SELFPAY | PROVIDERS: PCP Family Medicine; Visit Provider Nurse Practitioner Family | DX: L23.9 Allergic contact dermatitis, unspecified cause (principal); L81.4 Other melanin hyperpigmentation; L57.8 Other skin changes due to chronic exposure to nonionizing radiation | CPT/HCPCS: 99214 ==